=== PATIENT | male | born 1930 | race Caucasian/White ===

== ENCOUNTER 2017-10-14 19:11 | Inpatient (IN) | payer MEDICARE ==
[2017-10-14] MEDS ORDERED: ACETAMINOPHEN 325 MG TABLET PO ONE (19:25)
[2017-10-14] MEDS ORDERED: OXYCODONE-ACETAMINOPHEN 5-325 MG TABLET PO ONE (19:37)
[2017-10-14] MEDS ORDERED: ONDANSETRON 4 MG TAB.RAPDIS PO ONE (19:37)
--- NOTE | 2017-10-14 19:39 | ER Document Report ---
ED Hip Pain/Injury - General Chief Complaint: Hip Pain Stated Complaint: FALL/HIP PAIN Time Seen by Provider: 10/14/17 19:30 Notes: Patient is an 86-year-old male that comes emergency department by ambulance from home for mechanical fall. He states that he slipped on a rug, fell and landed on his right hip area, he also did hit his head on the ground. He denies syncope, headache, vomiting, chest pain, abdominal pain, dizziness, shortness of breath. He is not on a blood thinner. He states that he could not get up so he called the ambulance. He lives at home with his family. Past medical history includes CHF, chronic lymphedema, previous lymphoma status post treatment, COPD not on home oxygen. TRAVEL OUTSIDE OF THE [place] IN LAST 30 DAYS: No - Related Data Allergies/Adverse Reactions: No Known Allergies Allergy (Unverified 10/14/17 19:52) Past Medical History - General Information source: Patient - Social History Smoking Status: Never Smoker Frequency of alcohol use: None Drug Abuse: None Lives with: Family Family History: Reviewed & Not Pertinent - Past Medical History Cardiac Medical History: Reports: Hx Congestive Heart Failure, Hx Hypertension Pulmonary Medical History: Reports: Hx COPD Malignancy Medical History: Reports Hx Lymphoma - Immunizations Hx Diphtheria, Pertussis, Tetanus Vaccination: Yes Review of Systems - Review of Systems Constitutional: No symptoms reported EENT: No symptoms reported Cardiovascular: No symptoms reported Respiratory: No symptoms reported Gastrointestinal: No symptoms reported Genitourinary: No symptoms reported Male Genitourinary: No symptoms reported Musculoskeletal: See HPI Skin: No symptoms reported Hematologic/Lymphatic: No symptoms reported Neurological/Psychological: See HPI Physical Exam - Vital signs Vitals: Resp Pulse Ox 20 93 10/14/17 23:37 10/14/17 23:37 - Notes Notes: GENERAL: Alert, interacts well. No acute distress. HEAD: Normocephalic, atraumatic. EYES: Pupils equal, round, and reactive to light. Extraocular movements intact. ENT: Oral mucosa dry, tongue midline. Normal oropharyngeal exam NECK: Full range of motion. Supple. Trachea midline. LUNGS: Clear to auscultation bilaterally, no wheezes, rales, or rhonchi. No respiratory distress. HEART: Regular rate and rhythm. No murmur ABDOMEN: Soft, non-tender. Non-distended. Bowel sounds present in all 4 quadrants. No signs of trauma. EXTREMITIES: Right leg and lateral rotation, pain over the proximal femur and hip joint. Sensation and capillary refill intact. Bilateral lymphedema with erythema and multiple healing wounds. No purulence, no overt induration or fluctuance, no severe tenderness. BACK: no cervical, thoracic, lumbar midline tenderness. No saddle anesthesia, normal distal neurovascular exam. No signs of trauma. NEUROLOGICAL: Alert and oriented x3. Normal speech. [cranial nerves II through XII grossly intact]. PSYCH: Normal affect, normal mood. SKIN: Warm, dry, normal turgor. No rashes or lesions noted. Course - Re-evaluation Re-evalutation: Presentation concerning for right hip fracture. Patient given pain medication, CAT scan of the head was performed as well because of reported head injury and advanced age although there are no signs of trauma over the head and he does not complain of headache. Patient is alert and oriented. No signs of trauma over the chest, abdomen, back, no complaints of these areas either. X-ray showing fractured right femoral neck. Preoperative tests performed without any acute abnormality. Vital signs unremarkable except for borderline hypoxia when patient starts going to sleep. Discussed admission with patient and daughter, they are very agreeable with this. Called and spoke with Dr. Miner, Orthopedics data collection associate. Will admit to hospitalist because of advanced age and comorbidities. Called and spoke with Dr. Villarreal, internal medicine, patient will be admitted to telemetry full admission. - Vital Signs Vital signs: Temp Pulse Resp BP Pulse Ox 76 18 147/72 H 94 10/15/17 01:35 10/15/17 02:01 10/15/17 02:01 10/15/17 02:01 - Laboratory Result Diagrams: 10/14/17 21:00 10/14/17 21:00 Laboratory results interpreted by me: 10/14/17 10/14/17 10/14/17 21:00 21:00 22:27 WBC 11.4 H RDW 14.3 H Seg Neutrophils % 84.5 H Lymphocytes % 9.7 L Absolute Neutrophils 9.6 H Carbon Dioxide 31 H BUN 25 H Est GFR (Non-Af Amer) 55 L Glucose 111 H Urine Protein 100 H Urine Blood MODERATE H Urine Urobilinogen 2.0 H Discharge - Discharge Clinical Impression: Fall Qualifiers: Encounter type: initial encounter Qualified Code(s): W19.XXXA - Unspecified fall, initial encounter Fracture of head of right femur Qualifiers: Encounter type: initial encounter Fracture type: closed Qualified Code(s): S72.051A - Unspecified fracture of head of right femur, initial encounter for closed fracture Head injury Qualifiers: Encounter type: initial encounter Qualified Code(s): S09.90XA - Unspecified injury of head, initial encounter Condition: Stable Disposition: ADMITTED INPATIENT Admitting Provider: Hospitalist Unit Admitted: Telemetry
[2017-10-14] MEDS ORDERED: FENTANYL CITRATE INJ/PF 100 MCG/2 ML AMPUL IV ONE (19:56)
[2017-10-14] MEDS ORDERED: ONDANSETRON HCL INJ/PF 4 MG/2 ML SDV IV ONE (19:56)
[2017-10-14 21:16] LABS: ABSOLUTE BASOPHILS # (AUTO) 0.1 10^3/uL (0.0-0.2); ABSOLUTE EOSINOPHILS # (AUTO) 0.1 10^3/uL (0.0-0.6); ABSOLUTE LYMPHOCYTES (AUTO) 1.1 10^3/uL (0.5-4.7); ABSOLUTE MONOCYTES (AUTO) 0.5 10^3/uL (0.1-1.4); ABSOLUTE NEUT (AUTO) 9.6 10^3/uL (1.7-8.2); BASOPHILS % (AUTO) 0.5 % (0-2); HEMATOCRIT 45.1 % (37.9-51.0); HEMOGLOBIN 14.9 g/dL (13.5-17.0); LYMPHOCYTES % (AUTO) 9.7 % (13-45); MEAN CORPUSCULAR HEMOGLOBIN 28.8 pg (27.0-33.4); MEAN CORPUSCULAR HGB CONC 33.1 g/dL (32.0-36.0); MEAN CORPUSCULAR VOLUME 87 fl (80-97); MONOCYTES % (AUTO) 4.3 % (3-13); PLATELET COUNT 206 10^3/uL (150-450); RED BLOOD COUNT 5.18 10^6/uL (4.35-5.55); RED CELL DISTRIBUTION WIDTH 14.3 % (11.5-14.0); SEGMENTED NEUTROPHILS % (AUTO) 84.5 % (42-78); TOTAL CELLS COUNTED % (AUTO) 100 %; WHITE BLOOD COUNT 11.4 10^3/uL (4.0-10.5)
[2017-10-14 21:19] LABS: INTERNATIONAL RATION (INR) 0.92; PROTHROMBIN TIME 12.8 SEC (11.4-15.4)
--- NOTE | 2017-10-14 21:19 | RADIOLOGY REPORT (SQ) ---
EXAM DESCRIPTION: HIP RIGHT AP/LATERAL COMPLETED DATE/TIME: 10/14/2017 8:33 pm REASON FOR STUDY: 3 louise s/p fall tender COMPARISON: None. NUMBER OF VIEWS: Two views. TECHNIQUE: AP pelvis and additional frog-leg view of the right hip. LIMITATIONS: None. FINDINGS: MINERALIZATION: Normal. RIGHT HIP: Subcapital fracture. LEFT HIP: No fracture or dislocation. No worrisome bone lesions. PUBIS AND ISCHIUM: No fracture. PELVIS: No fracture. SACRUM: No fracture or dislocation. No worrisome bone lesions. LOWER LUMBAR SPINE: No fracture or dislocation. No worrisome bone lesions. No significant disc disea se. SOFT TISSUES: No findings. OTHER: No other significant finding. IMPRESSION: Subcapital fracture of the right femoral neck. TECHNICAL DOCUMENTATION: JOB ID: [id number] [employer]- All Rights Reserved Reading location - IP/workstation name: [email or web address]
[2017-10-14 21:20] LABS: PARTIAL THROMBOPLASTIN TIME 35.7 SEC (23.5-35.8)
--- NOTE | 2017-10-14 21:20 | RADIOLOGY REPORT (SQ) ---
EXAM DESCRIPTION: CHEST SINGLE VIEW COMPLETED DATE/TIME: 10/14/2017 8:33 pm REASON FOR STUDY: FALL +DEFORMITY COMPARISON: None. EXAM PARAMETERS: NUMBER OF VIEWS: One view. TECHNIQUE: Single frontal radiographic view of the chest acquired. RADIATION DOSE: NA LIMITATIONS: None. FINDINGS: LUNGS AND PLEURA: Mild chronic interstitial changes are suggested. No acute infiltrate or effusion is seen. MEDIASTINUM AND HILAR STRUCTURES: No masses. Contour normal. HEART AND VASCULAR STRUCTURES: Heart normal in size. Normal vasculature. BONES: No acute findings. HARDWARE: Injection port on the left. OTHER: No other significant finding. IMPRESSION: Chronic lung changes. TECHNICAL DOCUMENTATION: JOB ID: [id number] [employer]- All Rights Reserved Reading location - IP/workstation name: [email or web address]
--- NOTE | 2017-10-14 21:23 | RADIOLOGY REPORT (SQ) ---
EXAM DESCRIPTION: CT HEAD WITHOUT COMPLETED DATE/TIME: 10/14/2017 8:40 pm REASON FOR STUDY: fall, head injury COMPARISON: None. TECHNIQUE: Axial images acquired through the brain without intravenous contrast. Images reviewed wi th bone, brain and subdural windows. Additional sagittal and coronal reconstructions were generated. Images stored on PACS. All CT scanners at this facility use dose modulation, iterative reconstruction, and/or weight based d osing when appropriate to reduce radiation dose to as low as reasonably achievable (ALARA). [facility]: Dose Right [facility]: CareDose [facility]: Dose Right [facility]: Teradose 4D [facility]: Smart Technologies RADIATION DOSE: CT Rad equipment meets quality standard of care and radiation dose reduction techniq ues were employed. CTDIvol: 55.2 mGy. DLP: 1029 mGy-cm. mGy. LIMITATIONS: None. FINDINGS: VENTRICLES: Prominent ventricles secondary to involutional atrophy. CEREBRUM: Cortical atrophy. There is no hemorrhage, contusion, or subdural hematoma. There is no mi dline shift or mass effect. There is no acute infarction. Normal nicholas/white matter differentiation. No areas of low density in the white matter. CEREBELLUM: No masses. No hemorrhage. No alteration of density. No evidence for acute infarction. EXTRAAXIAL SPACES: No fluid collections. No masses. ORBITS AND GLOBE: No intra- or extraconal masses. Normal contour of globe without masses. CALVARIUM: No fracture. PARANASAL SINUSES: Right maxillary sinus is opacified. SOFT TISSUES: No mass or hematoma. OTHER: No other significant finding. IMPRESSION: Involutional changes of aging with no acute intracranial imaging findings. Right maxill lindsey sinus disease. EVIDENCE OF ACUTE STROKE: NO. COMMENT: Quality ID # [id number]: Final reports with documentation of one or more dose reduction techniques (e.g., Automated exposure control, adjustment of the mA and/or kV according to patient size, use of iterative reconstruction technique) TECHNICAL DOCUMENTATION: JOB ID: [id number] [employer]- All Rights Reserved Reading location - IP/workstation name: [email or web address]
[2017-10-14 21:33] LABS: ALANINE AMINOTRANSFERASE 25 U/L (21-72); ALBUMIN 3.9 g/dL (3.5-5.0); ALKALINE PHOSPHATASE 58 U/L (38-126); ANION GAP 10 (5-19); ASPARTATE AMINO TRANSFERASE 27 U/L (17-59); BILIRUBIN,DIRECT 0.4 mg/dL (0.0-0.4); BILIRUBIN,TOTAL 0.8 mg/dL (0.2-1.3); BLOOD UREA NITROGEN 25 mg/dL (7-20); CALCIUM 8.6 mg/dL (8.4-10.2); CARBON DIOXIDE 31 mmol/L (22-30); CHLORIDE 102 mmol/L (98-107); GLUCOSE 111 mg/dL (75-110); POTASSIUM 3.8 mmol/L (3.6-5.0); SODIUM 143.3 mmol/L (137-145)
[2017-10-14] MEDS ORDERED: MORPHINE SULFATE 10 MG/ML INJ IV ONE (21:48)
[2017-10-14] MEDS ORDERED: LIDOCAINE 2% URO-JET 5 ML KIT MM ONE (22:06)
[2017-10-15] LABS: APPEARANCE,URINE CLEAR; BILIRUBIN,URINE NEGATIVE (NEGATIVE); COLOR,URINE YELLOW; GLUCOSE, URINE NEGATIVE (NEGATIVE); KETONES,URINE NEGATIVE (NEGATIVE); LEUKOCYTE ESTERASE,URINE NEGATIVE (NEGATIVE); NITRITE,URINE NEGATIVE (NEGATIVE); PROTEIN,URINE 100 mg/dL (NEGATIVE); URINE SPECIFIC GRAVITY 1.018
[2017-10-15] MEDS ORDERED: FENTANYL CITRATE INJ/PF 100 MCG/2 ML AMPUL IV PRN ×2 (00:24→05:43)
[2017-10-15] MEDS ORDERED: FENTANYL CITRATE INJ/PF 100 MCG/2 ML AMPUL IV ONE (00:47)
[2017-10-15] MEDS ORDERED: ACETAMINOPHEN 325 MG TABLET PO PRN (00:59)
[2017-10-15] MEDS ORDERED: IPRATROPIUM/ALBUTEROL 0.5-2.5 MG/3 ML AMPUL NEB PRN ×2 (00:59→08:57)
[2017-10-15] MEDS ORDERED: MAGNESIUM HYDROXIDE SUSP 30 ML UDCUP PO PRN (00:59)
[2017-10-15] MEDS: IPRATROPIUM/ALBUTEROL 0.5-2.5 MG/3 ML AMPUL NEB SCH ×4 (01:35→23:47)
[2017-10-15 01:44] LABS: CREATINE KINASE MB 1.19 ng/mL (<4.55)
[2017-10-15 01:46] LABS: TROPONIN I < 0.012 ng/mL
[2017-10-15 04:03] LABS: CREATINE KINASE MB 1.31 ng/mL (<4.55); TROPONIN I < 0.012 ng/mL
[2017-10-15] MEDS: HEPARIN SOD (PORCINE) 5,000 UNIT/ML 1 ML SYRINGE SUBCUT SCH ×2 (06:56→14:20)
--- NOTE | 2017-10-15 06:56 | PDOC H&P ---
History of Present Illness Admission Date/PCP: 10/15/17 00:38 History of Present Illness: NAE JOYA is a 86 year old male with a past medical history of 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 Patient presents 30 minutes following a trip over a rug resulting in fall to the floor hitting his head and right hip resulting in intractable pain to the right hip, no loss of consciousness, or evidence of head trauma. In the emergency room is found to have a right-sided hip fracture. He is referred to the hospitalist for admission. He denies recent medication changes , chest pain palpitations nausea vomiting. Past Medical History Cardiac Medical History: Reports: Congestive Heart Failure, Hypertension Pulmonary Medical History: Reports: Chronic Obstructive Pulmonary Disease (COPD) Malignancy Medical History: Reports: Lymphoma Psychiatric Medical History: Reports: None Hematology: Reports: None Social History Information Source: Patient Lives with: Family Smoking Status: Former Smoker Last Time Smoked: 1979 Hx Recreational Drug Use: No Hx Prescription Drug Abuse: No - Advance Directive Resuscitation Status: Full Code Family History Family History: COPD Parental Family History Reviewed: Yes Children Family History Reviewed: Yes Sibling(s) Family History Reviewed.: Yes Medication/Allergy Allergies/Adverse Reactions: No Known Allergies Allergy (Unverified 10/14/17 19:52) Review of Systems Constitutional: PRESENT: as per HPI, fatigue, weakness. ABSENT: fever(s), headache(s), night sweats Eyes: ABSENT: visual disturbances Ears: ABSENT: hearing changes Cardiovascular: PRESENT: as per HPI, dyspnea on exertion, edema, orthropnea. ABSENT: chest pain, palpitations Respiratory: PRESENT: as per HPI, dyspnea. ABSENT: hemoptysis, sputum Gastrointestinal: ABSENT: abdominal pain, constipation, diarrhea, hematemesis, hematochezia, nausea, vomiting Genitourinary: ABSENT: dysuria, hematuria Musculoskeletal: PRESENT: as per HPI, muscle weakness. ABSENT: joint swelling Integumentary: ABSENT: rash, wounds Neurological: ABSENT: abnormal gait, abnormal speech, confusion, dizziness, focal weakness, syncope Psychiatric: ABSENT: anxiety, depression, homidical ideation, suicidal ideation Endocrine: ABSENT: cold intolerance, heat intolerance, polydipsia, polyuria Hematologic/Lymphatic: ABSENT: easy bleeding, easy bruising Physical Exam Vital Signs: Temp Pulse Resp BP Pulse Ox 98.3 F 90 18 154/70 H 93 10/15/17 02:29 10/15/17 02:29 10/15/17 02:29 10/15/17 02:29 10/15/17 02:29 Intake & Output 10/13/17 10/14/17 10/15/17 11:59 11:59 11:59 Intake Total 320 Output Total 360 Balance -40 Weight 93.9 kg General appearance: PRESENT: cooperative, mild distress. ABSENT: no acute distress, hard of hearing Head exam: PRESENT: atraumatic, normocephalic Eye exam: PRESENT: conjunctiva pink, EOMI, PERRLA. ABSENT: scleral icterus Ear exam: PRESENT: normal external ear exam Mouth exam: PRESENT: moist, tongue midline Neck exam: ABSENT: carotid bruit, JVD, lymphadenopathy, thyromegaly Respiratory exam: PRESENT: accessory muscle use, crackles, decreased breath sounds, prolonged expiratory phas, rales, tachypnea Cardiovascular exam: PRESENT: RRR. ABSENT: diastolic murmur, rubs, systolic murmur Pulses: PRESENT: normal dorsalis pedis pul Vascular exam: PRESENT: normal capillary refill GI/Abdominal exam: PRESENT: normal bowel sounds, soft. ABSENT: distended, guarding, mass, organolmegaly, rebound, tenderness Rectal exam: PRESENT: deferred Extremities exam: PRESENT: joint swelling, pedal edema, tenderness, +2 edema. ABSENT: calf tenderness, full ROM Neurological exam: PRESENT: alert, awake, oriented to person, oriented to place , oriented to time, oriented to situation, CN II-XII grossly intact. ABSENT: motor sensory deficit Psychiatric exam: PRESENT: appropriate affect, normal mood. ABSENT: homicidal ideation, suicidal ideation Skin exam: PRESENT: dry, intact. ABSENT: erythema, jaundice Results Laboratory Results: 10/15/17 10/15/17 03:15 03:15 Creatine Kinase 122 CK-MB (CK-2) 1.31 Troponin I < 0.012 Impressions: Chest X-Ray 10/14/17 00:00 IMPRESSION: Chronic lung changes. Hip/Pelvis X-Ray 10/14/17 00:00 IMPRESSION: Subcapital fracture of the right femoral neck. Head CT 10/14/17 19:37 IMPRESSION: Involutional changes of aging with no acute intracranial imaging findings. Right maxillary sinus disease. EVIDENCE OF ACUTE STROKE: NO. Assessment & Plan - Diagnosis (1) Fracture of head of right femur Qualifiers: Encounter type: initial encounter Fracture type: closed Qualified Code(s) : S72.051A - Unspecified fracture of head of right femur, initial encounter for closed fracture Is this a current diagnosis for this admission?: Yes Plan: Mechanical fall complicated by severe baseline debility, lymphoma, congestive heart failure, COPD. Patient at high risk for intraoperative cardiopulmonary complication and general anesthesia. Cardiology consulted for preop evaluation. (2) Debility Is this a current diagnosis for this admission?: Yes Plan: Secondary to chronic illness. Supportive care, discharge planning (3) Congestive heart failure Is this a current diagnosis for this admission?: Yes Plan: Unclear stage, cardiology consulted (4) COPD (chronic obstructive pulmonary disease) Is this a current diagnosis for this admission?: Yes Plan: Albuterol and Atrovent, flutter valve and incentive spirometry (5) Fall Qualifiers: Encounter type: initial encounter Qualified Code(s): W19.XXXA - Unspecified fall, initial encounter Is this a current diagnosis for this admission?: Yes Plan: Mechanical fall resulting in #1. - Time Time Spent: 50 to 70 Minutes - Inpatient Certification Medical Necessity: Need Close Monitoring Due to Risk of Patient Decompensation
--- NOTE | 2017-10-15 07:24 | EKG REPORT ---
SEVERITY:- ABNORMAL ECG - SINUS RHYTHM ATRIAL PREMATURE COMPLEX NONSPECIFIC INTRAVENTRICULAR CONDUCTION DELAY FIRST DEGREE AVB CONSIDER OLD INFERIOR VT, NO OLD EKG FOR COMPARISON. : Confirmed by: Sukhwinder Dinh MD 15-Oct-2017 07:23:34
[2017-10-15] MEDS ORDERED: IPRATROPIUM/ALBUTEROL 0.5-2.5 MG/3 ML AMPUL NEB ONE (09:30)
[2017-10-15] MEDS ORDERED: NORMAL SALINE 1000 ML 1,000 ML IV PRN (11:07)
[2017-10-15] MEDS ORDERED: DEXTROSE 40% GEL 15 GM TUBE PO PRN ×2 (11:13)
[2017-10-15] MEDS ORDERED: GLUCAGON,HUMAN RECOMB 1 MG INJ IM PRN (11:13)
[2017-10-15] MEDS ORDERED: INSULIN REG, HUMAN 100 UNIT/ML 3 ML VIAL (PYX) SUBCUT PRN (11:13)
[2017-10-15] MEDS ORDERED: DEXTROSE 50%-WATER 25 GM/50 ML DISP.SYRIN IV PRN ×2 (11:13)
[2017-10-15 11:25] LABS: CREATINE KINASE MB 2.92 ng/mL (<4.55); TROPONIN I 0.018 ng/mL
--- NOTE | 2017-10-15 11:54 | Progress Note ---
Provider Note Provider Note: PRELIMINARY NOTE by Dr. Jennifer Moreno. Date: 10/15/2017. Patient interviewed and examined. History obtained from patient and patient's daughter. Formal consult to follow. THE PATIENT WILL BE AND ACCEPTABLE CARDIAC RISK FOR ORTHOPEDIC SURGICAL PROCEDURE. Next RECOMMEND perioperative monitoring on telemetry, postop EKG and serial cardiac enzymes. We will follow with you. Discussed with the hospitalist. Will discuss with anesthesia.
[2017-10-15] MEDS ORDERED: MINERAL OIL/PETROLATUM,WHITE CREAM 114 GM TP ONE (12:00)
[2017-10-15] MEDS: MORPHINE SULFATE 10 MG/ML INJ IV PRN ×4 (12:11→23:14)
[2017-10-15] MEDS: DOCUSATE SODIUM 100 MG CAPSULE PO SCH ×2 (12:12→18:59)
[2017-10-15] MEDS ORDERED: MORPHINE SULFATE 10 MG/ML INJ ONE (14:04)
[2017-10-15] MEDS ORDERED: MORPHINE SULFATE 10 MG/ML INJ IV ONE (15:00)
[2017-10-15] MEDS: CLINDAMYCIN HCL 150 MG CAPSULE PO SCH ×2 (16:14→21:36)
--- NOTE | 2017-10-15 16:26 | PDOC PROGRESS REPORT ---
Subjective Progress Note for:: 10/15/17 Subjective:: The patient is an 86 year old male with a past medical history of lymphoma ( unknown type/staging; declining further treatment), COPD, CHF, debility, and BLE venous stasis dermatitis (chronic) who was admitted 10/15/17 by the [facility] for a Rt hip fracture secondary to mechanical fall. The patient is seen on morning rounds. He is found resting in bed on room air. He reports that his pain is moderately well controlled with the current regiment and does request that his medication dosing or schedule be increased. He reports that he does experience dyspnea on exertion after ambulating approximately 20 feet but has never been home O2 dependent. They state that the move to [place] from [place] approximately 3 weeks ago and has not established with a local PCP; has been several months (at least) since the patient was seen by his previous medical provider in [place]. He denies headache, dizziness, chest pain, palpitations, dyspnea while at rest, orthopnea, abdominal pain, nausea and vomiting. The patient and daughter have no new questions at this time. Nursing is concerned with appearance of BLE; possible cellulitis. Reason For Visit: HIP FRACTURE, COPD CHF LYMPHOMA Physical Exam Vital Signs: Temp Pulse Resp BP Pulse Ox 100.3 F 91 18 129/49 H 90 L 10/15/17 12:00 10/15/17 12:00 10/15/17 12:00 10/15/17 12:00 10/15/17 12:00 Intake & Output 10/14/17 10/15/17 10/16/17 06:59 06:59 06:59 Intake Total 320 Output Total 360 Balance -40 Weight 93.9 kg General appearance: PRESENT: no acute distress, disheveled, well-developed, well -nourished, other - Overweight, chronically ill-appearing Head exam: PRESENT: atraumatic, normocephalic Eye exam: PRESENT: conjunctiva pink, EOMI, PERRLA. ABSENT: scleral icterus Ear exam: PRESENT: normal external ear exam Mouth exam: PRESENT: dry mucosa, tongue midline Neck exam: ABSENT: carotid bruit, JVD, lymphadenopathy, thyromegaly Respiratory exam: PRESENT: decreased breath sounds - Bibasilar, prolonged expiratory phas, rhonchi - Occasional, symmetrical, unlabored. ABSENT: rales, wheezes Cardiovascular exam: PRESENT: RRR. ABSENT: diastolic murmur, rubs, systolic murmur Pulses: PRESENT: normal dorsalis pedis pul Vascular exam: PRESENT: normal capillary refill GI/Abdominal exam: PRESENT: normal bowel sounds, soft. ABSENT: distended, guarding, mass, organolmegaly, rebound, tenderness Rectal exam: PRESENT: deferred Extremities exam: PRESENT: pedal edema, tenderness - Rt hip. ABSENT: calf tenderness, clubbing Neurological exam: PRESENT: alert, awake, oriented to person, oriented to place , oriented to time, oriented to situation, CN II-XII grossly intact. ABSENT: motor sensory deficit Psychiatric exam: PRESENT: appropriate affect, normal mood. ABSENT: homicidal ideation, suicidal ideation Skin exam: PRESENT: dry, erythema - RLE w/ numerous shallow venous ulerations and drainage of serous fluid., warm, other - Chronic venous stasis changes BLE. ABSENT: cyanosis, rash Results Laboratory Results: 10/15/17 13:32 Blood Type AB POSITIVE Antibody Screen NEGATIVE 10/15/17 10/15/17 10/15/17 03:15 03:15 10:30 Creatine Kinase 122 368 H CK-MB (CK-2) 1.31 Troponin I < 0.012 10/15/17 10:30 Creatine Kinase CK-MB (CK-2) 2.92 Troponin I 0.018 Impressions: Chest X-Ray 10/14/17 00:00 IMPRESSION: Chronic lung changes. Hip/Pelvis X-Ray 10/14/17 00:00 IMPRESSION: Subcapital fracture of the right femoral neck. Head CT 10/14/17 19:37 IMPRESSION: Involutional changes of aging with no acute intracranial imaging findings. Right maxillary sinus disease. EVIDENCE OF ACUTE STROKE: NO. Assessment & Plan - Diagnosis (1) Fracture of head of right femur Qualifiers: Encounter type: initial encounter Fracture type: closed Qualified Code(s) : S72.051A - Unspecified fracture of head of right femur, initial encounter for closed fracture Is this a current diagnosis for this admission?: Yes Plan: Secondary to mechanical fall. Primary plan per orthopedics. Cardiology has been consulted for cardiac clearance. Analgesics and antiemetics as needed. (2) Cellulitis Qualifiers: Site of cellulitis: extremity Site of cellulitis of extremity: lower extremity Laterality: right Qualified Code(s): L03.115 - Cellulitis of right lower limb Is this a current diagnosis for this admission?: Yes Plan: Secondary to chronic venous stasis and venous ulcerations. Bilateral lower extremities are edematous; +2 LLE, +3 right LLE. Circumferential erythema, multiple shallow ulcerations, and sanguinous drainage is noted. The patient is placed on p.o. clindamycin; will benefit with podiatry and wound clinic follow-up as outpatient. (3) COPD (chronic obstructive pulmonary disease) Is this a current diagnosis for this admission?: Yes Plan: Without current exacerbation. Patient denies all medications. As needed nebulizer treatments are available. Supplemental oxygen as needed to maintain saturations greater than 88%. Flutter valve and incentive spirometry to bedside. (4) Congestive heart failure Is this a current diagnosis for this admission?: Yes Plan: Unclear stage. Trending troponins. We will obtain baseline BNP. Echocardiogram is pending. (5) Debility Is this a current diagnosis for this admission?: Yes Plan: Anticipate SNF for short-term rehabilitation upon discharge. Discharge planning is consulted. (6) Fall Qualifiers: Encounter type: initial encounter Qualified Code(s): W19.XXXA - Unspecified fall, initial encounter Is this a current diagnosis for this admission?: Yes Plan: Mechanical fall at home. Fall precautions are in place. Remaining plan as above. - Time Time Spent with patient: 25-34 minutes Medications reviewed and adjusted accordingly: Yes
--- NOTE | 2017-10-15 18:56 | XCELERA REPORT ---
[address] [address] Transthoracic Echocardiogram Report Name: NAE JOYA Age: 86 yrs Gender: Male : 1930 Patient Status: [facility] Study Date: 10/15/2017 02:38 PM Height: 71 in Weight: 207 lb BSA: 2.1 m2 Procedure: A two-dimensional transthoracic echocardiogram with color flow Doppler was performed. The study was technically difficult with many images being suboptimal in quality. Reason For Study: PREOP CARDIAC CLEARANCE History: MURMUR / PREOP CARDIAC CLEARANCE. Ordering Physician: JENNIFER MORENO Performed By: Kristine Rodriguez Interpretation Summary The left ventricle is normal in size. There is normal left ventricular wall thickness. LV EF is > than 60% Left ventricular systolic function is normal. Doppler measurements suggest impaired left ventricular relaxation, which is associated with grade I/IV or mild diastolic dysfunction The left ventricular wall motion is normal. There is no thrombus. There is no ventricular septal defect visualized. The right ventricle is not well visualized secondary to technical limitations Cannot exclude mild RV enlargement , but with normal RV systolic function. The right atrium is normal. The left atrial size is normal. The interatrial septum is intact with no evidence for an atrial septal defect. There is no evidence of mitral valve prolapse. There is no mitral valve stenosis. There is a trace amount of mitral regurgitation There is no aortic valvular vegetation. There is a peak gradient of 23 mm of Hg , and mean gradient of 13 mm of Hg. There is no LVOT obstruction. No hemodynamically significant valvular aortic stenosis. No aortic regurgitation is present. There is no tricuspid stenosis. There is a mild amount of tricuspid regurgitation There is moderate pulmonary hypertension by echo RSVP is equal to is 53 to 58 mm of Hg , with RA mean of 5 to 10. There is no pulmonic valvular stenosis. There is no pulmonic valvular regurgitation. The aortic root is not well visualized. The inferior vena cava appeared normal and decreased > 50% with respiration (RAP 5-10 mmHg) There is no pericardial effusion. MMode/2D Measurements & Calculations RVDd: 4.1 cm LVIDd: 3.6 cm FS: 29.7 % Ao root diam: 3.3 cm IVSd: 0.98 cm LVIDs: 2.6 cm EDV(Teich): 55.8 ml Ao root area: 8.6 cm2 LVPWd: 1.0 cm ESV(Teich): 23.6 ml LA dimension: 3.2 cm EF(Teich): 57.8 % LVOT diam: 2.1 cm LVOT area: 3.6 cm2 Doppler Measurements & Calculations MV E max apurva: MV P1/2t max apurva: Ao V2 max: LV V1 max P.8 cm/sec 55.9 cm/sec 237.5 cm/sec 4.5 mmHg MV A max apurva: MV P1/2t: 45.0 msec Ao max PG: LV V1 mean P.9 cm/sec MVA(P1/2t): 4.9 cm2 22.6 mmHg 2.4 mmHg MV E/A: 0.55 MV dec slope: Ao V2 mean: LV V1 max: 165.1 cm/sec 106.4 cm/sec 364.2 cm/sec2 Ao mean PG: LV V1 mean: MV dec time: 0.14 sec12.7 mmHg 70.3 cm/sec Ao V2 VTI: 40.9 cm LV V1 VTI: 18.6 cm KVNG(I,D): 1.6 cm2 KVNG(V,D): 1.6 cm2 SV(LVOT): 67.0 ml PA V2 max: TR max apurva: MV P1/2t-pr_phl: 67.1 cm/sec 344.8 cm/sec 45.0 msec PA max P.8 mmHg TR max P.5 mmHg Left Ventricle The left ventricle is normal in size. There is normal left ventricular wall thickness. LV EF is > than 60%. Left ventricular systolic function is normal. Doppler measurements suggest impaired left ventricular relaxation, which is associated with grade I/IV or mild diastolic dysfunction. The left ventricular wall motion is normal. There is no thrombus. There is no ventricular septal defect visualized. Right Ventricle The right ventricle is not well visualized secondary to technical limitations. Cannot exclude mild RV enlargement , but with normal RV systolic function. Atria The right atrium is normal. The left atrial size is normal. The interatrial septum is intact with no evidence for an atrial septal defect. Mitral Valve There is no evidence of mitral valve prolapse. There is no vegetation seen on the mitral valve. There is no mitral valve stenosis. There is a trace amount of mitral regurgitation. Aortic Valve There is no aortic valvular vegetation. There is mild aortic stenosis. There is a peak gradient of 23 mm of Hg , and mean gradient of 13 mm of Hg. There is no LVOT obstruction. No hemodynamically significant valvular aortic stenosis. No aortic regurgitation is present. Tricuspid Valve There is no tricuspid stenosis. There is a mild amount of tricuspid regurgitation. There is moderate pulmonary hypertension by echo. RSVP is equal to is 53 to 58 mm of Hg , with RA mean of 5 to 10. Pulmonic Valve There is no pulmonic valvular stenosis. There is no pulmonic valvular regurgitation. Great Vessels The aortic root is not well visualized. The inferior vena cava appeared normal and decreased > 50% with respiration (RAP 5-10 mmHg). Effusions There is no pericardial effusion. : JENNIFER MORENO > Jennifer Moreno
[2017-10-15] MEDS ORDERED: RINGERS SOLUTION,LACTATED 1,000 ML IV PRN (23:59)
[2017-10-16] MEDS: CLINDAMYCIN HCL 150 MG CAPSULE PO SCH ×3 (05:14→22:36)
[2017-10-16 06:29] LABS: ABSOLUTE EOSINOPHILS # (AUTO) 0.4 10^3/uL (0.0-0.6); ABSOLUTE LYMPHOCYTES (AUTO) 0.7 10^3/uL (0.5-4.7); ABSOLUTE MONOCYTES (AUTO) 0.8 10^3/uL (0.1-1.4); ABSOLUTE NEUT (AUTO) 8.4 10^3/uL (1.7-8.2); BASOPHILS % (AUTO) 0.3 % (0-2); EOSINOPHILS % (AUTO) 3.8 % (0-6); HEMATOCRIT 40.4 % (37.9-51.0); HEMOGLOBIN 13.6 g/dL (13.5-17.0); LYMPHOCYTES % (AUTO) 6.9 % (13-45); MEAN CORPUSCULAR HEMOGLOBIN 29.5 pg (27.0-33.4); MEAN CORPUSCULAR HGB CONC 33.8 g/dL (32.0-36.0); MEAN CORPUSCULAR VOLUME 87 fl (80-97); MONOCYTES % (AUTO) 7.3 % (3-13); PLATELET COUNT 139 10^3/uL (150-450); RED BLOOD COUNT 4.62 10^6/uL (4.35-5.55); RED CELL DISTRIBUTION WIDTH 14.3 % (11.5-14.0); SEGMENTED NEUTROPHILS % (AUTO) 81.7 % (42-78); TOTAL CELLS COUNTED % (AUTO) 100 %; WHITE BLOOD COUNT 10.3 10^3/uL (4.0-10.5)
[2017-10-16 07:37] LABS: ANION GAP 10 (5-19); BLOOD UREA NITROGEN 26 mg/dL (7-20); CALCIUM 8.4 mg/dL (8.4-10.2); CARBON DIOXIDE 30 mmol/L (22-30); CHLORIDE 100 mmol/L (98-107); CREATINE KINASE 923 U/L (55-170); GLUCOSE 121 mg/dL (75-110)
[2017-10-16] MEDS: IPRATROPIUM/ALBUTEROL 0.5-2.5 MG/3 ML AMPUL NEB SCH ×2 (08:10→16:14)
[2017-10-16] MEDS: MINERAL OIL/PETROLATUM,WHITE CREAM 114 GM TP SCH (10:14)
[2017-10-16] MEDS: DOCUSATE SODIUM 100 MG CAPSULE PO SCH ×2 (10:14→17:46)
--- NOTE | 2017-10-16 12:29 | PDOC PROGRESS REPORT ---
Subjective Progress Note for:: 10/16/17 Subjective:: The patient is an 86 year old male with a past medical history of lymphoma ( unknown type/staging; declining further treatment), COPD, CHF, debility, and BLE venous stasis dermatitis (chronic) who was admitted 10/15/17 for a Rt hip fracture secondary to mechanical fall. The patient is seen on morning rounds, he is found resting in bed comfortably on room air. Initially, the patient is sleeping, but does wake easily when I say his name. Few moments later his 2 daughters arrived and they are also given an update. The patient states that his pain is much better controlled today and that he slept well. He denies fever, chills, headache, dizziness, chest pain, palpitations, dyspnea, orthopnea, cough, abdominal pain, nausea, vomiting, and diarrhea. All questions and concerns were addressed; anticipate patient will go to the OR today. Reason For Visit: HIP FRACTURE, COPD CHF LYMPHOMA Physical Exam Vital Signs: Temp Pulse Resp BP Pulse Ox 98.8 F 80 18 127/58 H 96 10/16/17 08:00 10/16/17 08:10 10/16/17 08:10 10/16/17 08:00 10/16/17 08:10 Intake & Output 10/15/17 10/16/17 10/17/17 06:59 06:59 06:59 Intake Total 320 990 Output Total 360 1050 Balance -40 -60 Weight 93.9 kg 94.2 kg General appearance: PRESENT: no acute distress, well-developed, well-nourished, other - overweight Head exam: PRESENT: atraumatic, normocephalic Eye exam: PRESENT: conjunctiva pink, EOMI, PERRLA. ABSENT: scleral icterus Ear exam: PRESENT: normal external ear exam Mouth exam: PRESENT: moist, tongue midline Neck exam: ABSENT: carotid bruit, JVD, lymphadenopathy, thyromegaly Respiratory exam: PRESENT: decreased breath sounds - bibasilar, prolonged expiratory phas, rhonchi - slight; improves following cough, symmetrical, unlabored. ABSENT: rales, wheezes Cardiovascular exam: PRESENT: RRR. ABSENT: diastolic murmur, rubs, systolic murmur Pulses: PRESENT: +1 pedal pulses bilateral Vascular exam: PRESENT: normal capillary refill GI/Abdominal exam: PRESENT: normal bowel sounds, soft. ABSENT: distended, guarding, mass, organolmegaly, rebound, tenderness Rectal exam: PRESENT: deferred Gentrourinary exam: PRESENT: indwelling catheter Extremities exam: PRESENT: pedal edema, tenderness - RLE. ABSENT: calf tenderness, clubbing Neurological exam: PRESENT: alert, awake, oriented to person, oriented to place , oriented to time, oriented to situation, CN II-XII grossly intact. ABSENT: motor sensory deficit Psychiatric exam: PRESENT: appropriate affect, normal mood. ABSENT: homicidal ideation, suicidal ideation Skin exam: PRESENT: dry, erythema - RLE; improved, warm, other - Chronic venous stasis changes w/ shallow ulcerations and slight serous fluid drainage. Improved appearance from yesterday.. ABSENT: cyanosis, rash Results Laboratory Results: 10/16/17 06:12 10/16/17 06:12 10/15/17 10/16/17 10/16/17 13:32 06:12 06:12 WBC 10.3 RBC 4.62 Hgb 13.6 Hct 40.4 MCV 87 MCH 29.5 MCHC 33.8 RDW 14.3 H Plt Count 139 L Seg Neutrophils % 81.7 H Lymphocytes % 6.9 L Monocytes % 7.3 Eosinophils % 3.8 Basophils % 0.3 Absolute Neutrophils 8.4 H Absolute Lymphocytes 0.7 Absolute Monocytes 0.8 Absolute Eosinophils 0.4 Absolute Basophils 0.0 Sodium 140.0 Potassium 5.0 Chloride 100 Carbon Dioxide 30 Anion Gap 10 BUN 26 H Creatinine 1.32 H Est GFR ( Amer) > 60 Est GFR (Non-Af Amer) 51 L Glucose 121 H Calcium 8.4 Blood Type AB POSITIVE Antibody Screen NEGATIVE 10/15/17 10/15/17 10/15/17 03:15 03:15 10:30 Creatine Kinase 122 368 H CK-MB (CK-2) 1.31 Troponin I < 0.012 NT-Pro-B Natriuret Pep 10/15/17 10/15/17 10/15/17 10:30 16:55 16:55 Creatine Kinase CK-MB (CK-2) 2.92 Troponin I 0.018 0.036 NT-Pro-B Natriuret Pep 2240 H 10/16/17 10/16/17 06:12 06:12 Creatine Kinase 923 H CK-MB (CK-2) Troponin I 0.064 NT-Pro-B Natriuret Pep Impressions: Chest X-Ray 10/14/17 00:00 IMPRESSION: Chronic lung changes. Hip/Pelvis X-Ray 10/14/17 00:00 IMPRESSION: Subcapital fracture of the right femoral neck. Head CT 10/14/17 19:37 IMPRESSION: Involutional changes of aging with no acute intracranial imaging findings. Right maxillary sinus disease. EVIDENCE OF ACUTE STROKE: NO. Assessment & Plan - Diagnosis (1) Fracture of head of right femur Qualifiers: Encounter type: initial encounter Fracture type: closed Qualified Code(s) : S72.051A - Unspecified fracture of head of right femur, initial encounter for closed fracture Is this a current diagnosis for this admission?: Yes Plan: Secondary to mechanical fall. Primary plan per orthopedics. Cardiology has been consulted and has provided cardiac clearance. Will need serial troponins and repeat EKG following procedure. Analgesics and antiemetics as needed. (2) Cellulitis Qualifiers: Site of cellulitis: extremity Site of cellulitis of extremity: lower extremity Laterality: right Qualified Code(s): L03.115 - Cellulitis of right lower limb Is this a current diagnosis for this admission?: Yes Plan: Secondary to chronic venous stasis and venous ulcerations; improved appearance today. Bilateral lower extremities are edematous; +2 LLE, +3 right LLE. Circumferential erythema, multiple shallow ulcerations, and sanguinous drainage is noted. Continue p.o. clindamycin; will benefit with podiatry and possibly wound clinic follow-up as outpatient. (3) COPD (chronic obstructive pulmonary disease) Is this a current diagnosis for this admission?: Yes Plan: Without current exacerbation. Patient denies all medications. As needed nebulizer treatments are available. Supplemental oxygen as needed to maintain saturations greater than 88%. Flutter valve and incentive spirometry to bedside. (4) Congestive heart failure Qualifiers: Heart failure type: diastolic Heart failure chronicity: chronic Qualified Code(s): I50.32 - Chronic diastolic (congestive) heart failure Is this a current diagnosis for this admission?: Yes Plan: Echocardiogram reveals preserved ejection fraction, mild diastolic dysfunction, trace mitral regurgitation, mild tricuspid regurgitation, and moderate pulmonary hypertension. ProBNP elevated to 2240; no previous lab values to compare. The patient does not appear to be in acute exacerbation on clinical exam. Troponins are trending upward; currently 0.064. However, patient is noted to have rhabdomyolysis with an increasing CK, creatinine, and BUN. We will continue to trend troponins. The patient is receiving gentle IV fluids for rhabdomyolysis; will observe closely for fluid volume overload. Daily weights and Strict I&Os. (5) Debility Is this a current diagnosis for this admission?: Yes Plan: Anticipate SNF for short-term rehabilitation upon discharge. Discharge planning is consulted. (6) Fall Qualifiers: Encounter type: initial encounter Qualified Code(s): W19.XXXA - Unspecified fall, initial encounter Is this a current diagnosis for this admission?: Yes Plan: Mechanical fall at home. Fall precautions are in place. Remaining plan as above. (7) Kidney insufficiency Is this a current diagnosis for this admission?: Yes Plan: Unclear baseline; creatinine 1.25 on admission. Slightly up to 1.32 this morning. Creatine kinase is also increased; 116--> 122--> 368--> 923 We will avoid nephrotoxic medications as able. Le catheter has been placed for strict I&Os. Have initiated gentle IV fluids. We will monitor with daily chemistries. (8) Rhabdomyolysis Qualifiers: Rhabdomyolysis type: traumatic Is this a current diagnosis for this admission?: Yes Plan: Secondary to fall resulting in right hip fracture. Creatine kinase increasing; 116--> 122--> 368--> 923 Le catheter has been placed for strict I&Os. Have initiated gentle IV fluids. Will continue to trend. Early mobility/position changes once approved by orthopedics. - Time Time Spent with patient: 25-34 minutes Medications reviewed and adjusted accordingly: Yes Anticipated discharge: Acute Rehab
[2017-10-16] MEDS ORDERED: FENTANYL CITRATE INJ/PF 100 MCG/2 ML AMPUL ONE ×3 (13:47→13:48)
[2017-10-16] MEDS ORDERED: PROPOFOL INJ 200 MG/20 ML VIAL IV ONE (13:47)
[2017-10-16] MEDS ORDERED: MIDAZOLAM 2 MG/2 ML INJ ONE ×2 (13:47→14:37)
[2017-10-16] MEDS ORDERED: ONDANSETRON HCL INJ/PF 4 MG/2 ML SDV ONE (13:47)
[2017-10-16] MEDS ORDERED: HYDROMORPHONE HCL INJ/PF 2 MG/ML AMPULE ONE (13:48)
[2017-10-16] MEDS ORDERED: CEFAZOLIN INJ 1 GM VIAL ONE (13:58)
[2017-10-16] MEDS ORDERED: BUPIVACAINE INJ/PF LIPOSOME/PF 266 MG/20 ML SDV ONE (14:47)
[2017-10-16] MEDS ORDERED: FENTANYL CITRATE INJ/PF 100 MCG/2 ML AMPUL IV PRN ×3 (14:49)
[2017-10-16] MEDS ORDERED: RINGERS SOLUTION,LACTATED 1,000 ML IV PRN (16:20)
[2017-10-16] MEDS ORDERED: IPRATROPIUM/ALBUTEROL 0.5-2.5 MG/3 ML AMPUL NEB ONE ×2 (16:23→16:45)
--- NOTE | 2017-10-16 16:50 | Operative Report ---
Operative Report DATE OF SURGERY: 10/16/17 PREOPERATIVE DIAGNOSIS: Right femoral neck fracture POSTOPERATIVE DIAGNOSIS: Same OPERATION: Right hip hemiarthroplasty SURGEON: MARIAH AMAYA ANESTHESIA: GA TISSUE REMOVED OR ALTERED: None COMPLICATIONS: None ESTIMATED BLOOD LOSS: 200 mL INTRAOPERATIVE FINDINGS: As above PROCEDURE: Procedure In Detail: Patient was seen and evaluated in the preoperative holding area. The right lower extremity was initialized and marked. Patient received 2g of Ancef IV for bacterial prophylaxis. Patient was taken back to the operative room where transferred to the operative table and placed under spinal anesthesia. Once they were adequately anesthetized patient was placed in the lateral position an axillary roll was placed in nonoperative left lower extremity was carefully padded. A surgical team debriefing was performed ensuring all instrumentation was available, the surgical procedure was discussed with possible concerns reviewed. The upper extremity was prepped with chlor prep draped in a sterile fashion. A timeout was done identifying correct patient, procedure and extremity everyone in attendance agree with this and verbalized no concerns. A posterior skin incision was made just posterior to the greater trochanter. Dissection was done down to the gluteus lester and iliotibial band fascia this was split in line with the skin incision. Any peripheral vasculature was carefully coagulated. A Charley retractor was placed after palpation of the sciatic nerve and the sciatic nerve was safely retracted from the wound throughout the entirety of the case. I then identified the external rotators with the use of a Bovie this was carefully elevated off along with underlying capsule from the neck in a T-shaped capsulotomy was made just superior to the piriformis. This was then tagged. The femoral neck was identified and approximately 1 fingerbreadth above the lesser trochanter a freshening cut was made. Any excess bone remaining was carefully removed. I then used the corkscrew to remove the femoral head from the acetabulum which was then measured on the back table. The excess bone was removed and removed the scopes irrigated with normal saline. I then trial the femoral head according to what was measured on the back table and got good fit within the acetabulum. I then turned my attention to femoral preparation. A box osteotome was first used to get laterally along the trochanter. I then used the lateralizing reamer to avoid medialization of the stem and ultimately varus malalignment. I then began broaching with a 0 broach and broached up to a #6 broach which was somewhat countersunk. I then utilized the calcar reamer reamed out the appropriate level. I then broached up to a #7 broach which I got good proximal fit. I began trialing with a #0 neck length and had good stability through flexion, internal rotation and adduction. There is no instability with external rotation. Leg lengths were found to be compatible and equal to the other side. At this point the trial implants were removed. The wound was irrigated with normal saline. I then implanted my appropriate size stem the good peripheral fit and placement at my predetermined broach level. I then implanted the final unipolar head. The hip was reduced once again measures stability and good stability throughout all range of motion with no palpable impingement. Leg lengths were equivalent to the nonoperative side. I then want to get pepper irrigated the wound with normal saline. Utilizing a #5 FiberWire suture I secured the capsule posteriorly into the trochanter. I then irrigated once again with normal saline. The gluteus lester and tensor fascia xander was closed with a running 0 Prolene suture. I then injected Exparel in multiple locations throughout the subcutaneous tissues , hip wound and the fascia. I then closed the subcutaneous tissues with interrupted 2-0 Vicryl suture. The skin was closed with celeste. Acticoat dressing and OpSite dressing was applied to the incision. Sponge counts, instrument counts and needle counts were correct. Patient was then awoken from anesthesia laid supine at which point her leg lengths were once again checked and found to be equal to the nonoperative extremity. Patient was then transferred to the operating stretcher and placed in an abduction pillow. The was no intraoperative crepitations patient tolerated she will was stable to PACU. Postoperative plan: Patient will be started on Lovenox for DVT prophylaxis. She will begin physical therapy on postop day #1. Implants: Accolade II Size 8, 43 Bipolar Head, +0 Neck Length
--- NOTE | 2017-10-16 17:38 | RADIOLOGY REPORT (SQ) ---
EXAM DESCRIPTION: HIP RIGHT AP/LATERAL COMPLETED DATE/TIME: 10/16/2017 5:09 pm REASON FOR STUDY: Post Op Long Cassette in PACU COMPARISON: 10/14/2017 NUMBER OF VIEWS: 2 view(s). TECHNIQUE: Digital radiographic images of the right hip post-procedure. LIMITATIONS: None. FINDINGS: BONES: No worrisome or unexpected findings post-procedure. DEVICE: Bi-polar prothesis. Device appears in appropriate location. SOFT TISSUES: No worrisome findings. Expected postoperative soft tissue changes. IMPRESSION: SATISFACTORY POSTOPERATIVE RIGHT HIP. TECHNICAL DOCUMENTATION: JOB ID: [id number] [employer]- All Rights Reserved Reading location - IP/workstation name: [email or web address]
[2017-10-16] MEDS: CEFAZOLIN 2 GM/D5W RTU 2 GM/50 ML RTUPB IV SCH ×2 (17:46→23:55)
[2017-10-16] MEDS: SENNOSIDES/DOCUSATE 8.6-50 MG 1 EACH TABLET PO SCH (17:46)
[2017-10-16 18:18] LABS: CREATINE KINASE MB 7.25 ng/mL (<4.55); TROPONIN I 0.056 ng/mL
[2017-10-16] MEDS: MORPHINE SULFATE 10 MG/ML INJ IV PRN ×2 (18:27→22:42)
--- NOTE | 2017-10-16 20:46 | Progress Note ---
Provider Note Provider Note: NOTE BY DR. PRASHANT Moreno, dated 10/16/2017. Patient was in the OR and hence not seen today Will get. EKG and cardiac enzymes in the a.m. of 10/17/2017. Nurses have been instructed to call me if any problems should arise. Will not charge the patient today.
[2017-10-16] MEDS ORDERED: CEFAZOLIN 1 GM/D5W RTU 4 GM/200 ML RTUPB IV ONE (22:41)
--- NOTE | 2017-10-16 22:53 | EKG REPORT ---
SEVERITY:- ABNORMAL ECG - SINUS RHYTHM MULTIPLE ATRIAL PREMATURE COMPLEXES FIRST DEGREE AV BLOCK CONSIDER OLD INFERIOR VT : Confirmed by: Sukhwinder Dinh MD 16-Oct-2017 22:52:32
[2017-10-16 23:57] LABS: CREATINE KINASE MB 6.76 ng/mL (<4.55); TROPONIN I 0.054 ng/mL
[2017-10-17] MEDS: IPRATROPIUM/ALBUTEROL 0.5-2.5 MG/3 ML AMPUL NEB SCH ×3 (00:02→16:08)
[2017-10-17 05:28] LABS: HEMATOCRIT 35.1 % (37.9-51.0); HEMOGLOBIN 11.8 g/dL (13.5-17.0); MEAN CORPUSCULAR HGB CONC 33.5 g/dL (32.0-36.0); MEAN CORPUSCULAR VOLUME 87 fl (80-97); PLATELET COUNT 147 10^3/uL (150-450); RED BLOOD COUNT 4.06 10^6/uL (4.35-5.55); RED CELL DISTRIBUTION WIDTH 14.5 % (11.5-14.0); WHITE BLOOD COUNT 11.8 10^3/uL (4.0-10.5)
[2017-10-17 05:48] LABS: ANION GAP 10 (5-19); BLOOD UREA NITROGEN 28 mg/dL (7-20); CALCIUM 7.8 mg/dL (8.4-10.2); CARBON DIOXIDE 27 mmol/L (22-30); CHLORIDE 99 mmol/L (98-107); GLUCOSE 131 mg/dL (75-110); POTASSIUM 4.9 mmol/L (3.6-5.0); SODIUM 135.6 mmol/L (137-145)
[2017-10-17] MEDS: CEFAZOLIN 2 GM/D5W RTU 2 GM/50 ML RTUPB IV SCH ×3 (06:15→17:18)
[2017-10-17] MEDS: CLINDAMYCIN HCL 150 MG CAPSULE PO SCH ×3 (06:15→22:47)
[2017-10-17] MEDS: SENNOSIDES/DOCUSATE 8.6-50 MG 1 EACH TABLET PO SCH ×2 (09:37→17:24)
[2017-10-17] MEDS: DOCUSATE SODIUM 100 MG CAPSULE PO SCH ×2 (09:37→17:24)
[2017-10-17] MEDS: PRENATAL VITAMIN W DHA CAPSULE PO SCH (09:37)
[2017-10-17] MEDS: MINERAL OIL/PETROLATUM,WHITE CREAM 114 GM TP SCH (09:40)
[2017-10-17 10:59] LABS: ARTERIAL BLOOD BASE EXCESS 1.6 mmol/L; ARTERIAL BLOOD H2CO3 1.24 mmol/L (1.05-1.35); ARTERIAL BLOOD HCO3 26.2 mmol/L (20-26); ARTERIAL BLOOD PCO2 41.1 mmHg (35-45); ARTERIAL BLOOD PH 7.42 (7.35-7.45); ARTERIAL BLOOD PO2 73.2 mmHg (80-100); ARTERIAL BLOOD TOTAL CO2 27.4 mmol/L (23-27)
[2017-10-17 11:03] LABS: ARTERIAL BLOOD FIO2 28%
[2017-10-17 11:13] LABS: HEMATOCRIT 34.9 % (37.9-51.0); HEMOGLOBIN 11.6 g/dL (13.5-17.0); MEAN CORPUSCULAR HEMOGLOBIN 28.9 pg (27.0-33.4); MEAN CORPUSCULAR HGB CONC 33.2 g/dL (32.0-36.0); MEAN CORPUSCULAR VOLUME 87 fl (80-97); PLATELET COUNT 151 10^3/uL (150-450); RED BLOOD COUNT 4.01 10^6/uL (4.35-5.55); RED CELL DISTRIBUTION WIDTH 14.2 % (11.5-14.0); WHITE BLOOD COUNT 11.8 10^3/uL (4.0-10.5)
--- NOTE | 2017-10-17 11:23 | RADIOLOGY REPORT (SQ) ---
EXAM DESCRIPTION: CHEST SINGLE VIEW COMPLETED DATE/TIME: 10/17/2017 11:03 am REASON FOR STUDY: dyspnea, crackles COMPARISON: 10/14/2017 EXAM PARAMETERS: NUMBER OF VIEWS: One view. TECHNIQUE: Single frontal radiographic view of the chest acquired. RADIATION DOSE: NA LIMITATIONS: None. FINDINGS: LUNGS AND PLEURA: Peripheral right lung interstitial changes appear more dense on today' s exam. No additional opacities. No pleural effusion or pneumothorax. MEDIASTINUM AND HILAR STRUCTURES: No masses. Contour normal. HEART AND VASCULAR STRUCTURES: Heart normal in size. Normal vasculature. BONES: No acute findings. HARDWARE: Unchanged left chest port. OTHER: No other significant finding. IMPRESSION: Peripheral right lung interstitial changes appear more dense on today's exam. Findings may represent pneumonia in the appropriate clinical setting. TECHNICAL DOCUMENTATION: JOB ID: [id number] [employer]- All Rights Reserved Reading location - IP/workstation name: [email or web address]
[2017-10-17 11:32] LABS: ANION GAP 12 (5-19); BLOOD UREA NITROGEN 29 mg/dL (7-20); CALCIUM 7.8 mg/dL (8.4-10.2); CARBON DIOXIDE 27 mmol/L (22-30); CHLORIDE 97 mmol/L (98-107); CREATINE KINASE 1307 U/L (55-170); GLUCOSE 148 mg/dL (75-110); POTASSIUM 4.4 mmol/L (3.6-5.0); SODIUM 135.9 mmol/L (137-145)
[2017-10-17 11:44] LABS: CREATINE KINASE MB 7.41 ng/mL (<4.55); TROPONIN I 0.033 ng/mL
--- NOTE | 2017-10-17 12:08 | RADIOLOGY REPORT (SQ) ---
EXAM DESCRIPTION: CT HEAD WITHOUT COMPLETED DATE/TIME: 10/17/2017 11:47 am REASON FOR STUDY: Lt side weakness COMPARISON: 10/14/2017 TECHNIQUE: Axial images acquired through the brain without intravenous contrast. Images reviewed wi th bone, brain and subdural windows. Additional sagittal and coronal reconstructions were generated. Images stored on PACS. All CT scanners at this facility use dose modulation, iterative reconstruction, and/or weight based d osing when appropriate to reduce radiation dose to as low as reasonably achievable (ALARA). [facility]: Dose Right [facility]: CareDose [facility]: Dose Right [facility]: Teradose 4D [facility]: Smart [employer] RADIATION DOSE: CT Rad equipment meets quality standard of care and radiation dose reduction techniq ues were employed. CTDIvol: 53.2 mGy. DLP: 1124 mGy-cm.mGy. LIMITATIONS: None. FINDINGS: VENTRICLES: Prominent. CEREBRUM: No masses. No hemorrhage. No midline shift. Areas of low density in the white matter mos t likely due to chronic micro-vascular ischemic change. No evidence for acute infarction. CEREBELLUM: No masses. No hemorrhage. No alteration of density. No evidence for acute infarction. EXTRAAXIAL SPACES: Age-related involutional change. No fluid collections. No masses. ORBITS AND GLOBE: No intra- or extraconal masses. Normal contour of globe without masses. CALVARIUM: No fracture. PARANASAL SINUSES: The previously described right maxillary sinus disease is unchanged. SOFT TISSUES: No mass or hematoma. OTHER: No other significant finding. IMPRESSION: CHRONIC CHANGES OF ATROPHY AND MICROVASCULAR ISCHEMIA. NO ACUTE PROCESS. EVIDENCE OF ACUTE STROKE: NO. TECHNICAL DOCUMENTATION: JOB ID: [id number] Quality ID # [id number]: Final reports with documentation of one or more dose reduction techniques (e.g., Au tomated exposure control, adjustment of the mA and/or kV according to patient size, use of iterative reconstruction technique) 2010 [employer]- All Rights Reserved Reading location - IP/workstation name: [email or web address]
--- NOTE | 2017-10-17 12:56 | EKG REPORT ---
SEVERITY:- ABNORMAL ECG - SINUS RHYTHM MULTIPLE PREMATURE COMPLEXES, SUPRAVEN PROBABLE LEFT ATRIAL ABNORMALITY PROBABLE INFERIOR INFARCT, AGE INDETERMINATE CONSIDER POSTERIOR WALL INVOLVEMENT : Confirmed by: Sukhwinder Dinh MD 17-Oct-2017 12:56:06
[2017-10-17] MEDS: MORPHINE SULFATE 10 MG/ML INJ IV PRN ×2 (13:21→17:18)
[2017-10-17] MEDS ORDERED: RINGERS SOLUTION,LACTATED 1,000 ML IV PRN (14:09)
--- NOTE | 2017-10-17 14:28 | PDOC PROGRESS REPORT ---
Subjective Progress Note for:: 10/17/17 Subjective:: The patient is an 86 year old male with a past medical history of lymphoma ( unknown type/staging; declining further treatment), COPD, CHF, debility, and BLE venous stasis dermatitis (chronic) who was admitted 10/15/17 for a Rt hip fracture secondary to mechanical fall. The patient is seen on morning rounds, he is found resting in bed comfortably on supplemental oxygen at 2 lpm. The patient is awake and oriented to self, place, situation, the year 1981 but the president Dianne. He does report that he is too weak to eat breakfast and reports that he is having difficulty with utensils. The patient states that his pain is much better controlled today and that he slept well. He denies fever, chills, headache, dizziness, chest pain, palpitations, dyspnea, orthopnea, cough, abdominal pain, nausea, vomiting, and diarrhea. Nursing has also noted a slight LUE weakness. Reason For Visit: STATUS POST RIGHT HIP HEMIARTHROPLASTY Physical Exam Vital Signs: Temp Pulse Resp BP Pulse Ox 99.3 F 89 18 136/57 H 100 10/17/17 13:19 10/17/17 13:19 10/17/17 13:19 10/17/17 13:19 10/17/17 13:19 Intake & Output 10/16/17 10/17/17 10/18/17 06:59 06:59 06:59 Intake Total 990 4670 Output Total 1050 1800 Balance -60 2870 Weight 94.2 kg 94.2 kg General appearance: PRESENT: no acute distress, cooperative, well-developed, well-nourished, other - Overweight Head exam: PRESENT: atraumatic, normocephalic Eye exam: PRESENT: conjunctiva pink, EOMI, PERRLA. ABSENT: scleral icterus Ear exam: PRESENT: normal external ear exam Mouth exam: PRESENT: moist, tongue midline Teeth exam: PRESENT: poor dentation Neck exam: ABSENT: carotid bruit, JVD, lymphadenopathy, thyromegaly Respiratory exam: PRESENT: crackles - fine crackles, RLL, decreased breath sounds - bibasilar, symmetrical, unlabored. ABSENT: rales, rhonchi, wheezes Cardiovascular exam: PRESENT: RRR, systolic murmur. ABSENT: diastolic murmur, rubs Pulses: PRESENT: normal dorsalis pedis pul Vascular exam: PRESENT: normal capillary refill GI/Abdominal exam: PRESENT: normal bowel sounds, soft. ABSENT: distended, guarding, mass, organolmegaly, rebound, tenderness Rectal exam: PRESENT: deferred Extremities exam: PRESENT: tenderness - RLE, +1 edema - BUE. ABSENT: calf tenderness, clubbing, pedal edema Neurological exam: PRESENT: alert, awake, oriented to person, oriented to place , oriented to situation, CN II-XII grossly intact, other - Decreased fairing man strength left greater than right; slow to follow directions, requires repeat prompting. Otherwise normal neuro exam.. ABSENT: oriented to time, motor sensory deficit Psychiatric exam: PRESENT: appropriate affect, normal mood. ABSENT: homicidal ideation, suicidal ideation Skin exam: PRESENT: dry, intact, warm. ABSENT: cyanosis, rash Results Laboratory Results: 10/17/17 10:53 10/17/17 10:53 10/17/17 10/17/17 10/17/17 05:12 05:12 10:42 WBC 11.8 H RBC 4.06 L Hgb 11.8 L Hct 35.1 L MCV 87 MCH 29.0 MCHC 33.5 RDW 14.5 H Plt Count 147 L Carbonic Acid 1.24 HCO3/H2CO3 Ratio 21:1 ABG pH 7.42 ABG pCO2 41.1 ABG pO2 73.2 L ABG HCO3 26.2 H ABG O2 Saturation 95.0 ABG Base Excess 1.6 FiO2 28% Sodium 135.6 L Potassium 4.9 Chloride 99 Carbon Dioxide 27 Anion Gap 10 BUN 28 H Creatinine 1.41 H Est GFR ( Amer) 58 L Est GFR (Non-Af Amer) 48 L Glucose 131 H Calcium 7.8 L Phosphorus Magnesium 10/17/17 10/17/17 10:53 10:53 WBC 11.8 H RBC 4.01 L Hgb 11.6 L Hct 34.9 L MCV 87 MCH 28.9 MCHC 33.2 RDW 14.2 H Plt Count 151 Carbonic Acid HCO3/H2CO3 Ratio ABG pH ABG pCO2 ABG pO2 ABG HCO3 ABG O2 Saturation ABG Base Excess FiO2 Sodium 135.9 L Potassium 4.4 Chloride 97 L Carbon Dioxide 27 Anion Gap 12 BUN 29 H Creatinine 1.36 H Est GFR ( Amer) > 60 Est GFR (Non-Af Amer) 50 L Glucose 148 H Calcium 7.8 L Phosphorus 4.0 Magnesium 1.8 10/15/17 10/15/17 10/15/17 03:15 03:15 10:30 Creatine Kinase 122 368 H CK-MB (CK-2) 1.31 Troponin I < 0.012 NT-Pro-B Natriuret Pep 10/15/17 10/15/17 10/15/17 10:30 16:55 16:55 Creatine Kinase CK-MB (CK-2) 2.92 Troponin I 0.018 0.036 NT-Pro-B Natriuret Pep 2240 H 10/16/17 10/16/17 10/16/17 06:12 06:12 17:30 Creatine Kinase 923 H 1244 H CK-MB (CK-2) Troponin I 0.064 NT-Pro-B Natriuret Pep 10/16/17 10/16/17 10/16/17 17:35 23:20 23:20 Creatine Kinase 1271 H CK-MB (CK-2) 7.25 H 6.76 H Troponin I 0.056 0.054 NT-Pro-B Natriuret Pep 10/17/17 10/17/17 10:53 10:53 Creatine Kinase 1307 H CK-MB (CK-2) 7.41 H Troponin I 0.033 NT-Pro-B Natriuret Pep 2910 H Impressions: Hip/Pelvis X-Ray 10/16/17 16:39 IMPRESSION: SATISFACTORY POSTOPERATIVE RIGHT HIP. Chest X-Ray 10/17/17 00:00 IMPRESSION: Peripheral right lung interstitial changes appear more dense on today's exam. Findings may represent pneumonia in the appropriate clinical setting. Head CT 10/17/17 00:00 IMPRESSION: CHRONIC CHANGES OF ATROPHY AND MICROVASCULAR ISCHEMIA. NO ACUTE PROCESS. EVIDENCE OF ACUTE STROKE: NO. Assessment & Plan - Diagnosis (1) Fracture of head of right femur Qualifiers: Encounter type: initial encounter Fracture type: closed Qualified Code(s) : S72.051A - Unspecified fracture of head of right femur, initial encounter for closed fracture Is this a current diagnosis for this admission?: Yes Plan: Secondary to mechanical fall. Now POD #1 right hip hemiarthroplasty. Primary plan per orthopedics. Cardiology has been consulted and has provided cardiac clearance. Analgesics and antiemetics as needed. (2) Cellulitis Qualifiers: Site of cellulitis: extremity Site of cellulitis of extremity: lower extremity Laterality: right Qualified Code(s): L03.115 - Cellulitis of right lower limb Is this a current diagnosis for this admission?: Yes Plan: Continues to imrpve. Secondary to chronic venous stasis and venous ulcerations. Bilateral lower extremities are edematous; +2 LLE, +1 right LLE. Anterior erythema (les intense), multiple shallow ulcerations, and sanguinous drainage is noted. Continue p.o. clindamycin; will benefit with podiatry and possibly wound clinic follow-up as outpatient. (3) COPD (chronic obstructive pulmonary disease) Is this a current diagnosis for this admission?: Yes Plan: Without current exacerbation. Patient denies all medications. As needed nebulizer treatments are available. Supplemental oxygen as needed to maintain saturations greater than 88%. Flutter valve and incentive spirometry to bedside. (4) Congestive heart failure Qualifiers: Heart failure type: diastolic Heart failure chronicity: chronic Qualified Code(s): I50.32 - Chronic diastolic (congestive) heart failure Is this a current diagnosis for this admission?: Yes Plan: Echocardiogram reveals preserved ejection fraction, mild diastolic dysfunction, trace mitral regurgitation, mild tricuspid regurgitation, and moderate pulmonary hypertension. ProBNP trending up 2240--> 2910 Troponins now trending down; peaked at 0.064, currently 0.033. Noted to have RLL crackles in increased bilateral upper extremity edema today. IV fluids are decreased to 50 mL's per hour as he still has poor p.o. intake. will monitor closely and stop fluids and begin diuresis if clinical exam worsens. Daily weights and Strict I&Os. (5) Debility Is this a current diagnosis for this admission?: Yes Plan: Anticipate SNF for short-term rehabilitation upon discharge. Discharge planning is consulted. (6) Fall Qualifiers: Encounter type: initial encounter Qualified Code(s): W19.XXXA - Unspecified fall, initial encounter Is this a current diagnosis for this admission?: Yes Plan: Mechanical fall at home. Fall precautions are in place. Remaining plan as above. (7) Kidney insufficiency Is this a current diagnosis for this admission?: Yes Plan: Unclear baseline; creatinine appears to be stable near 1.36 Creatine kinase is increased; 116--> 122--> 368--> 923--> 1307 We will avoid nephrotoxic medications as able. Le catheter has been placed for strict I&Os. Continue gentle IV fluids; limited secondary to CHF, slight crackles, and increased edema on exam. We will monitor with daily chemistries. (8) Rhabdomyolysis Qualifiers: Rhabdomyolysis type: traumatic Is this a current diagnosis for this admission?: Yes Plan: Secondary to fall resulting in right hip fracture. Creatine kinase increasing; 116--> 122--> 368--> 923--> 1307 Le catheter has been placed for strict I&Os. Continue gentle IV fluids; limited secondary to CHF, slight crackles, and increased edema on exam. Will continue to trend. Early mobility/position changes once approved by orthopedics. (9) Left arm weakness Is this a current diagnosis for this admission?: Yes Plan: Patient is postop day 1. He complained of difficulty eating this morning due to not being able to manage his utensils. He was noted to have left upper extremity weakness, but otherwise a normal neuro exam. Although, exam is limited secondary to recent hip fracture repair with abductor pillow. Head CT was negative for acute CVA. Chest x-ray demonstrated RLL density, perhaps slightly worsened from the previous exam. EKG unchanged from previously. ABG is reassuring. Laboratory evaluation including CBC, BMP, magnesium, phosphorus, troponin and BNP all as expected. Likely the patient's weakness is related to generalized debility, sedation, analgesic medications, etc. PT/OT is consulted. Low suspicion for TIA/CVA; patient is alert and oriented, no other focalized deficits identified, speech is clear. Therefore, will hold on MRI and carotid Doppler. - Time Time Spent with patient: 35 or more minutes Medications reviewed and adjusted accordingly: Yes Anticipated discharge: Acute Rehab
[2017-10-17] MEDS: CYCLOBENZAPRINE HCL 10 MG TABLET PO PRN (14:54)
--- NOTE | 2017-10-17 16:31 | PDOC PROGRESS REPORT ---
Subjective Progress Note for:: 10/17/17 Subjective:: Patient is resting comfortably in bed. No issues overnight. Therapy was able to sit him at the edge of the bed. Reason For Visit: STATUS POST RIGHT HIP HEMIARTHROPLASTY Physical Exam Vital Signs: Temp Pulse Resp BP Pulse Ox 37.4 C 93 18 136/57 H 100 10/17/17 13:19 10/17/17 15:00 10/17/17 13:19 10/17/17 13:19 10/17/17 13:19 Intake & Output 10/16/17 10/17/17 10/18/17 06:59 06:59 06:59 Intake Total 990 4670 50 Output Total 1050 1800 Balance -60 2870 50 Weight 94.2 kg 94.2 kg Adult Front & Back Image: 1 - Dressing is dry clean and intact. Limb lengths are grossly equal. Neurovascular intact distally with the pillow between the legs. Results Laboratory Results: 10/17/17 10:53 10/17/17 10:53 10/17/17 10/17/17 10/17/17 05:12 05:12 10:42 WBC 11.8 H RBC 4.06 L Hgb 11.8 L Hct 35.1 L MCV 87 MCH 29.0 MCHC 33.5 RDW 14.5 H Plt Count 147 L Carbonic Acid 1.24 HCO3/H2CO3 Ratio 21:1 ABG pH 7.42 ABG pCO2 41.1 ABG pO2 73.2 L ABG HCO3 26.2 H ABG O2 Saturation 95.0 ABG Base Excess 1.6 FiO2 28% Sodium 135.6 L Potassium 4.9 Chloride 99 Carbon Dioxide 27 Anion Gap 10 BUN 28 H Creatinine 1.41 H Est GFR ( Amer) 58 L Est GFR (Non-Af Amer) 48 L Glucose 131 H Calcium 7.8 L Phosphorus Magnesium 10/17/17 10/17/17 10:53 10:53 WBC 11.8 H RBC 4.01 L Hgb 11.6 L Hct 34.9 L MCV 87 MCH 28.9 MCHC 33.2 RDW 14.2 H Plt Count 151 Carbonic Acid HCO3/H2CO3 Ratio ABG pH ABG pCO2 ABG pO2 ABG HCO3 ABG O2 Saturation ABG Base Excess FiO2 Sodium 135.9 L Potassium 4.4 Chloride 97 L Carbon Dioxide 27 Anion Gap 12 BUN 29 H Creatinine 1.36 H Est GFR ( Amer) > 60 Est GFR (Non-Af Amer) 50 L Glucose 148 H Calcium 7.8 L Phosphorus 4.0 Magnesium 1.8 10/15/17 10/15/17 10/15/17 03:15 03:15 10:30 Creatine Kinase 122 368 H CK-MB (CK-2) 1.31 Troponin I < 0.012 NT-Pro-B Natriuret Pep 10/15/17 10/15/17 10/15/17 10:30 16:55 16:55 Creatine Kinase CK-MB (CK-2) 2.92 Troponin I 0.018 0.036 NT-Pro-B Natriuret Pep 2240 H 10/16/17 10/16/17 10/16/17 06:12 06:12 17:30 Creatine Kinase 923 H 1244 H CK-MB (CK-2) Troponin I 0.064 NT-Pro-B Natriuret Pep 10/16/17 10/16/17 10/16/17 17:35 23:20 23:20 Creatine Kinase 1271 H CK-MB (CK-2) 7.25 H 6.76 H Troponin I 0.056 0.054 NT-Pro-B Natriuret Pep 10/17/17 10/17/17 10:53 10:53 Creatine Kinase 1307 H CK-MB (CK-2) 7.41 H Troponin I 0.033 NT-Pro-B Natriuret Pep 2910 H Impressions: Hip/Pelvis X-Ray 10/16/17 16:39 IMPRESSION: SATISFACTORY POSTOPERATIVE RIGHT HIP. Chest X-Ray 10/17/17 00:00 IMPRESSION: Peripheral right lung interstitial changes appear more dense on today's exam. Findings may represent pneumonia in the appropriate clinical setting. Head CT 10/17/17 00:00 IMPRESSION: CHRONIC CHANGES OF ATROPHY AND MICROVASCULAR ISCHEMIA. NO ACUTE PROCESS. EVIDENCE OF ACUTE STROKE: NO. Status: Image reviewed by me Assessment & Plan - Plan Summary Plan Summary: 86-year-old gentleman postop day 1 from right hip hemiarthroplasty. Continue DVT prophylaxis as well as physical therapy. Continue pain control. Anticipate patient will require transfer to intermediate facility.
[2017-10-17] MEDS: HEPARIN SOD (PORCINE) 5,000 UNIT/ML 1 ML SYRINGE SUBCUT SCH (22:47)
[2017-10-18] MEDS: CEFAZOLIN 2 GM/D5W RTU 2 GM/50 ML RTUPB IV SCH ×4 (00:10→23:25)
[2017-10-18] MEDS: IPRATROPIUM/ALBUTEROL 0.5-2.5 MG/3 ML AMPUL NEB SCH ×4 (00:38→23:55)
[2017-10-18] MEDS: MORPHINE SULFATE 10 MG/ML INJ IV PRN ×2 (00:38→10:31)
--- NOTE | 2017-10-18 05:16 | PROGRESS NOTE E ---
Progress Note NAME: NAE JOYA : 1930 AGE: 86Y DATE: 10/17/2017 ROOM: 534 SUBJECTIVE: The patient had *------* surgery yesterday. He denies any chest pain or discomfort. His surgical incisional pain is well controlled with current medication. There are no palpitations. There is no PND, orthopnea, or leg edema. There is no cough or sputum production or wheezing. There are no anginal symptoms. There are no TIA or CVA symptoms. There are no arrhythmias seen on the monitor. OBJECTIVE: GENERAL: The patient is well built and well nourished, in no acute distress. VITAL SIGNS: His temperature is 99.1 degrees Fahrenheit. His pulse is 85 beats per minute. Blood pressure is 113/75. Respirations are 20 per minute. O2 sats are 100% on 4 L nasal cannula. HEAD: Atraumatic, normocephalic. EYES: Pupils are equal, round, regular, reactive to light and accommodation. Extraocular movements are normal. There is no conjunctival pallor. There is no scleral icterus. NECK: There is no goiter. Trachea is central. LUNGS: Show diminished air entry, prolonged expiration, without any rhonchi, rales, or wheezing. On percussion, there is hyperresonance throughout. There is no chest wall tenderness. HEART: S1, S2 are heard. There is no S3 gallop. There is no S4 gallop. There is a systolic murmur in the left sternal border on the apex. There is no rub. ABDOMEN: Soft, nontender. There is no hepatosplenomegaly. Bowel sounds are well heard. EXTREMITIES: Femorals are diminished. Leg pulses are diminished. There are no femoral bruits. There is no pedal edema. There is no DVT or cellulitis. There is no calf tenderness. The right hip surgical dressing is clean and dry. CENTRAL NERVOUS SYSTEM: The patient is conscious, awake, alert, oriented x3, with no focal deficit. PSYCHIATRIC: The patient's judgment and insight are intact. His affect is normal. DIAGNOSTIC STUDIES: The patient's EKG shows sinus rhythm, shows APCs present, probable old inferior PR. LABORATORY DATA: The patient's white count is 11,800. Hemoglobin is 11.6. Hematocrit is 34.9. Platelet count is 151,000. The patient's sodium is 133.9, potassium 4.4, chloride is 97. The patient's CO2 is 27. The patient's BUN is 29, creatinine is 1.36. GFR is reduced at 50 mL, and his glucose is 148. His calcium is 7.8. His phosphorus is 4.0. His magnesium is 1.8. His CPK is elevated at 1307, with a CPK-MB elevated at 7.41. His troponin I has been 0.054 yesterday night and this morning it is 0.033. His anti-proBNP is 2910. IMPRESSION 1. RIGHT FEMORAL NECK FRACTURE STATUS POST SURGERY, STABLE. 2. NO POSTOPERATIVE MYOCARDIAL INFARCTION OR ACUTE CORONARY SYNDROME. 3. HYPERTENSION. Blood pressure well controlled without medication. 4. COPD, STABLE, WITHOUT EVIDENCE OF EXACERBATION. 5. SYSTOLIC MURMUR, MILD, HEMODYNAMICALLY INSIGNIFICANT AORTIC STENOSIS. 6. MODERATE PULMONARY HYPERTENSION. 7. HISTORY OF DIABETES MELLITUS. Last hemoglobin A1c was within normal limits of 5.9. 8. HISTORY OF LYMPHOMA. Status of lymphoma is not known. 9. 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 RECOMMENDATIONS: Continue his current medications. Later, would recommend that the patient be referred to oncologist for followup of his lymphoma. His medications have been reviewed. Push p.o. fluids to combat the prerenal state of the patient. Forty minutes were spent on this patient, with more than 50% of the time spent in direct patient care. I have discussed the EKG and the lab findings with the patient. Medical decision making is of moderate complexity. NOTE: The patient is a full code. His daughter is the surrogate healthcare decision maker. Discussed with the hospitalist taking care of the patient. Discussed with the other caregiving providers on the case. Will follow with you. Will repeat troponin I in the morning. Thanking you. DICTATING PHYSICIAN: PRASHANT SIMMONS M.D. [id number] PHY#: [id number] ID: [id number] JOB#: [id number] ACCT: [id number] cc: >
[2017-10-18 06:34] LABS: HEMATOCRIT 32.4 % (37.9-51.0); HEMOGLOBIN 10.8 g/dL (13.5-17.0); MEAN CORPUSCULAR HEMOGLOBIN 29.2 pg (27.0-33.4); MEAN CORPUSCULAR HGB CONC 33.4 g/dL (32.0-36.0); MEAN CORPUSCULAR VOLUME 87 fl (80-97); PLATELET COUNT 129 10^3/uL (150-450); RED BLOOD COUNT 3.72 10^6/uL (4.35-5.55); RED CELL DISTRIBUTION WIDTH 14.2 % (11.5-14.0); WHITE BLOOD COUNT 9.7 10^3/uL (4.0-10.5)
[2017-10-18] MEDS: CLINDAMYCIN HCL 150 MG CAPSULE PO SCH ×3 (06:50→21:42)
[2017-10-18] MEDS: HEPARIN SOD (PORCINE) 5,000 UNIT/ML 1 ML SYRINGE SUBCUT SCH ×2 (06:51→13:41)
[2017-10-18 06:57] LABS: ANION GAP 10 (5-19); BLOOD UREA NITROGEN 37 mg/dL (7-20); CALCIUM 7.8 mg/dL (8.4-10.2); CARBON DIOXIDE 27 mmol/L (22-30); CHLORIDE 98 mmol/L (98-107); GLUCOSE 106 mg/dL (75-110); POTASSIUM 4.2 mmol/L (3.6-5.0); SODIUM 134.7 mmol/L (137-145)
[2017-10-18] MEDS: DOCUSATE SODIUM 100 MG CAPSULE PO SCH ×2 (10:31→19:36)
[2017-10-18] MEDS: SENNOSIDES/DOCUSATE 8.6-50 MG 1 EACH TABLET PO SCH ×2 (10:31→19:36)
[2017-10-18] MEDS: MINERAL OIL/PETROLATUM,WHITE CREAM 114 GM TP SCH (10:37)
[2017-10-18] MEDS: PRENATAL VITAMIN W DHA CAPSULE PO SCH (14:00)
[2017-10-18] MEDS: CYCLOBENZAPRINE HCL 10 MG TABLET PO PRN (15:03)
--- NOTE | 2017-10-18 16:16 | PDOC PROGRESS REPORT ---
Subjective Progress Note for:: 10/18/17 Subjective:: The patient is an 86 year old male with a past medical history of lymphoma ( unknown type/staging; declining further treatment), COPD, CHF, debility, and BLE venous stasis dermatitis (chronic) who was admitted 10/15/17 for a Rt hip fracture secondary to mechanical fall. The patient is seen on morning rounds, he is found resting in bed comfortably on supplemental oxygen at 2 lpm. The patient is sleeping but wakes easily when I say his name. He is alert and oriented 4 this morning. He tells me that he is feeling better than he did yesterday and that his pain is well controlled. He denies fever, chills, headache, dizziness, chest pain, palpitations, dyspnea , orthopnea, cough, abdominal pain, nausea, vomiting, and diarrhea. He has no questions or concerns at this time. Reason For Visit: STATUS POST RIGHT HIP HEMIARTHROPLASTY Physical Exam Vital Signs: Temp Pulse Resp BP Pulse Ox 97.7 F 77 20 126/52 H 99 10/18/17 12:46 10/18/17 14:00 10/18/17 12:46 10/18/17 12:46 10/18/17 12:46 Intake & Output 10/17/17 10/18/17 10/19/17 06:59 06:59 06:59 Intake Total 4670 1139 1050 Output Total 1800 1350 Balance 2870 -211 1050 Weight 94.2 kg 102.8 kg General appearance: PRESENT: no acute distress, cooperative, well-developed, well-nourished Head exam: PRESENT: atraumatic, normocephalic Eye exam: PRESENT: conjunctiva pink, EOMI, PERRLA. ABSENT: scleral icterus Ear exam: PRESENT: normal external ear exam Mouth exam: PRESENT: moist, tongue midline Teeth exam: PRESENT: poor dentation Neck exam: ABSENT: carotid bruit, JVD, lymphadenopathy, thyromegaly Respiratory exam: PRESENT: clear to auscultation ricardo - Crackles have resolved, decreased breath sounds - Bibasilar, symmetrical, unlabored. ABSENT: rales, rhonchi, wheezes Cardiovascular exam: PRESENT: RRR, +S1, +S2. ABSENT: diastolic murmur, rubs, systolic murmur Pulses: PRESENT: normal dorsalis pedis pul Vascular exam: PRESENT: normal capillary refill GI/Abdominal exam: PRESENT: normal bowel sounds, soft. ABSENT: distended, guarding, mass, organolmegaly, rebound, tenderness Rectal exam: PRESENT: deferred Extremities exam: PRESENT: tenderness - RLE, +2 edema - Chronic lymphedema/ venous stasis changes; edema appears to be improved from yesterday.. ABSENT: calf tenderness, clubbing, pedal edema Neurological exam: PRESENT: alert, awake, oriented to person, oriented to place , oriented to time, oriented to situation, CN II-XII grossly intact, other - Today associate teacher are equal; movement is slow, however intention tremor has resolved, answers questions appropriately and follows directions without requiring repeated prompting. ABSENT: motor sensory deficit Psychiatric exam: PRESENT: appropriate affect, normal mood. ABSENT: homicidal ideation, suicidal ideation Skin exam: PRESENT: dry, erythema - Right lower extremity; improved appearance from yesterday, warm. ABSENT: cyanosis, rash Results Laboratory Results: 10/18/17 06:15 10/18/17 06:15 10/18/17 10/18/17 06:15 06:15 WBC 9.7 RBC 3.72 L Hgb 10.8 L Hct 32.4 L MCV 87 MCH 29.2 MCHC 33.4 RDW 14.2 H Plt Count 129 L Sodium 134.7 L Potassium 4.2 Chloride 98 Carbon Dioxide 27 Anion Gap 10 BUN 37 H Creatinine 1.38 H Est GFR ( Amer) 59 L Est GFR (Non-Af Amer) 49 L Glucose 106 Calcium 7.8 L 10/15/17 10/15/17 10/15/17 03:15 03:15 10:30 Creatine Kinase 122 368 H CK-MB (CK-2) 1.31 Troponin I < 0.012 NT-Pro-B Natriuret Pep 10/15/17 10/15/17 10/15/17 10:30 16:55 16:55 Creatine Kinase CK-MB (CK-2) 2.92 Troponin I 0.018 0.036 NT-Pro-B Natriuret Pep 2240 H 10/16/17 10/16/17 10/16/17 06:12 06:12 17:30 Creatine Kinase 923 H 1244 H CK-MB (CK-2) Troponin I 0.064 NT-Pro-B Natriuret Pep 10/16/17 10/16/17 10/16/17 17:35 23:20 23:20 Creatine Kinase 1271 H CK-MB (CK-2) 7.25 H 6.76 H Troponin I 0.056 0.054 NT-Pro-B Natriuret Pep 10/17/17 10/17/17 10/18/17 10:53 10:53 06:15 Creatine Kinase 1307 H CK-MB (CK-2) 7.41 H Troponin I 0.033 0.015 NT-Pro-B Natriuret Pep 2910 H Impressions: Hip/Pelvis X-Ray 10/16/17 16:39 IMPRESSION: SATISFACTORY POSTOPERATIVE RIGHT HIP. Chest X-Ray 10/17/17 00:00 IMPRESSION: Peripheral right lung interstitial changes appear more dense on today's exam. Findings may represent pneumonia in the appropriate clinical setting. Head CT 10/17/17 00:00 IMPRESSION: CHRONIC CHANGES OF ATROPHY AND MICROVASCULAR ISCHEMIA. NO ACUTE PROCESS. EVIDENCE OF ACUTE STROKE: NO. Assessment & Plan - Diagnosis (1) Fracture of head of right femur Qualifiers: Encounter type: initial encounter Fracture type: closed Qualified Code(s) : S72.051A - Unspecified fracture of head of right femur, initial encounter for closed fracture Is this a current diagnosis for this admission?: Yes Plan: Secondary to mechanical fall. Now POD #2 right hip hemiarthroplasty. Primary plan per orthopedics. Cardiology was consulted and provided cardiac clearance. Analgesics and antiemetics as needed. Lovenox for DVT prophylaxis per orthopedics recommendations. Anticipate discharge to acute rehabilitation; has a bed offer at [facility]. (2) Cellulitis Qualifiers: Site of cellulitis: extremity Site of cellulitis of extremity: lower extremity Laterality: right Qualified Code(s): L03.115 - Cellulitis of right lower limb Is this a current diagnosis for this admission?: Yes Plan: Continues to improve. Secondary to chronic venous stasis and venous ulcerations. Bilateral lower extremities are edematous; +2 LLE, +1 right LLE. Anterior dull erythema, multiple shallow ulcerations; drainage has resolved. Continue p.o. clindamycin; will benefit with podiatry and possibly wound clinic follow-up as outpatient. (3) COPD (chronic obstructive pulmonary disease) Is this a current diagnosis for this admission?: Yes Plan: Without current exacerbation. Patient denies all medications. As needed nebulizer treatments are available. Supplemental oxygen as needed to maintain saturations greater than 88%. Flutter valve and incentive spirometry to bedside. (4) Congestive heart failure Qualifiers: Heart failure type: diastolic Heart failure chronicity: chronic Qualified Code(s): I50.32 - Chronic diastolic (congestive) heart failure Is this a current diagnosis for this admission?: Yes Plan: Echocardiogram reveals preserved ejection fraction, mild diastolic dysfunction, trace mitral regurgitation, mild tricuspid regurgitation, and moderate pulmonary hypertension. ProBNP trending up 2240--> 2910 Troponins now trending down; peaked at 0.064, currently 0.015. Noted to have RLL crackles in increased bilateral upper extremity edema yesterday; crackles have resolved and edema is improving. IVF are discontinued. Will monitor closely and provide additional diuresis if clinical exam worsens. Daily weights and Strict I&Os. (5) Debility Is this a current diagnosis for this admission?: Yes Plan: Anticipate SNF for short-term rehabilitation upon discharge. Discharge planning is consulted. (6) Fall Qualifiers: Encounter type: initial encounter Qualified Code(s): W19.XXXA - Unspecified fall, initial encounter Is this a current diagnosis for this admission?: Yes Plan: Mechanical fall at home. Fall precautions are in place. Remaining plan as above. (7) Kidney insufficiency Is this a current diagnosis for this admission?: Yes Plan: Unclear baseline; creatinine appears to be stable near 1.36 Creatine kinase is increased; 116--> 122--> 368--> 923--> 1307 We will avoid nephrotoxic medications as able. Le catheter has been placed for strict I&Os. We will monitor with daily chemistries. (8) Rhabdomyolysis Qualifiers: Rhabdomyolysis type: traumatic Is this a current diagnosis for this admission?: Yes Plan: Secondary to fall resulting in right hip fracture. Creatine kinase increasing; 116--> 122--> 368--> 923--> 1307 Le catheter has been placed for strict I&Os. Encourage p.o. fluids. Will continue to trend. Early mobility/position changes once approved by orthopedics. (9) Left arm weakness Is this a current diagnosis for this admission?: Yes Plan: Resolved; associate teacher are equal today. Likely r/t sedation from anesthesia the day previously opiate medications for treatment of hip pain. Patient was postop day 1. He complained of difficulty eating this morning due to not being able to manage his utensils. He was noted to have left upper extremity weakness, but otherwise a normal neuro exam. Although, exam is limited secondary to recent hip fracture repair with abductor pillow. Head CT was negative for acute CVA. Chest x-ray demonstrated RLL density, perhaps slightly worsened from the previous exam. EKG unchanged from previously. ABG is reassuring. Laboratory evaluation including CBC, BMP, magnesium, phosphorus, troponin and BNP all as expected. Likely the patient's weakness is related to generalized debility, sedation, analgesic medications, etc. PT/OT is consulted. Low suspicion for TIA/CVA; patient is alert and oriented, no other focalized deficits identified, speech is clear. Therefore, will hold on MRI and carotid Doppler. - Time Time Spent with patient: 25-34 minutes Medications reviewed and adjusted accordingly: Yes Anticipated discharge: Acute Rehab Within: Other - When cleared by orthopedics.
[2017-10-18] MEDS ORDERED: FUROSEMIDE 20 MG TABLET PO ONE (16:30)
--- NOTE | 2017-10-18 18:08 | PDOC PROGRESS REPORT ---
Subjective Progress Note for:: 10/18/17 Subjective:: Patient eating breakfast this morning with no issues. Was able to sit at the edge of the bed and therapy. Pain is controlled Reason For Visit: STATUS POST RIGHT HIP HEMIARTHROPLASTY Physical Exam Vital Signs: Temp Pulse Resp BP Pulse Ox 36.4 C 80 20 110/74 100 10/18/17 16:34 10/18/17 16:34 10/18/17 16:34 10/18/17 16:34 10/18/17 16:34 Intake & Output 10/17/17 10/18/17 10/19/17 06:59 06:59 06:59 Intake Total 4670 1139 1050 Output Total 1800 1350 Balance 2870 -211 1050 Weight 94.2 kg 102.8 kg General appearance: PRESENT: no acute distress Head exam: PRESENT: atraumatic Adult Front & Back Image: 1 - Dressing is dry clean and intact with mild bloody drainage. Limb lengths are grossly equal. Is able to flex and extend his ankle and toes. Has gross sensation to touch. Negative Homans sign Results Laboratory Results: 10/18/17 06:15 10/18/17 06:15 10/18/17 10/18/17 06:15 06:15 WBC 9.7 RBC 3.72 L Hgb 10.8 L Hct 32.4 L MCV 87 MCH 29.2 MCHC 33.4 RDW 14.2 H Plt Count 129 L Sodium 134.7 L Potassium 4.2 Chloride 98 Carbon Dioxide 27 Anion Gap 10 BUN 37 H Creatinine 1.38 H Est GFR ( Amer) 59 L Est GFR (Non-Af Amer) 49 L Glucose 106 Calcium 7.8 L 10/15/17 10/15/17 10/15/17 03:15 03:15 10:30 Creatine Kinase 122 368 H CK-MB (CK-2) 1.31 Troponin I < 0.012 NT-Pro-B Natriuret Pep 10/15/17 10/15/17 10/15/17 10:30 16:55 16:55 Creatine Kinase CK-MB (CK-2) 2.92 Troponin I 0.018 0.036 NT-Pro-B Natriuret Pep 2240 H 10/16/17 10/16/17 10/16/17 06:12 06:12 17:30 Creatine Kinase 923 H 1244 H CK-MB (CK-2) Troponin I 0.064 NT-Pro-B Natriuret Pep 10/16/17 10/16/17 10/16/17 17:35 23:20 23:20 Creatine Kinase 1271 H CK-MB (CK-2) 7.25 H 6.76 H Troponin I 0.056 0.054 NT-Pro-B Natriuret Pep 10/17/17 10/17/17 10/18/17 10:53 10:53 06:15 Creatine Kinase 1307 H CK-MB (CK-2) 7.41 H Troponin I 0.033 0.015 NT-Pro-B Natriuret Pep 2910 H Impressions: Hip/Pelvis X-Ray 10/16/17 16:39 IMPRESSION: SATISFACTORY POSTOPERATIVE RIGHT HIP. Chest X-Ray 10/17/17 00:00 IMPRESSION: Peripheral right lung interstitial changes appear more dense on today's exam. Findings may represent pneumonia in the appropriate clinical setting. Head CT 10/17/17 00:00 IMPRESSION: CHRONIC CHANGES OF ATROPHY AND MICROVASCULAR ISCHEMIA. NO ACUTE PROCESS. EVIDENCE OF ACUTE STROKE: NO. Assessment & Plan - Plan Summary Plan Summary: Patient is 86-year-old gentleman POD #2 from right hip hemiarthroplasty. Continue physical therapy Continue pain control Continue DVT prophylaxis [facility]waiting [facility] facility [facility]
[2017-10-18] MEDS: ENOXAPARIN SODIUM INJ 40 MG/0.4 ML DISP.SYRIN SUBCUT SCH (19:33)
[2017-10-18] MEDS: OXYCODONE-ACETAMINOPHEN 5-325 MG TABLET PO PRN (19:34)
[2017-10-19] MEDS: CEFAZOLIN 2 GM/D5W RTU 2 GM/50 ML RTUPB IV SCH ×4 (00:33→17:07)
[2017-10-19] MEDS: MORPHINE SULFATE 10 MG/ML INJ IV PRN ×3 (01:10→17:00)
[2017-10-19] MEDS: CLINDAMYCIN HCL 150 MG CAPSULE PO SCH ×3 (05:27→22:05)
[2017-10-19] MEDS: OXYCODONE-ACETAMINOPHEN 5-325 MG TABLET PO PRN (05:36)
[2017-10-19 05:42] LABS: HEMATOCRIT 31.2 % (37.9-51.0); HEMOGLOBIN 10.7 g/dL (13.5-17.0); MEAN CORPUSCULAR HEMOGLOBIN 29.3 pg (27.0-33.4); MEAN CORPUSCULAR HGB CONC 34.2 g/dL (32.0-36.0); MEAN CORPUSCULAR VOLUME 86 fl (80-97); PLATELET COUNT 151 10^3/uL (150-450); RED BLOOD COUNT 3.65 10^6/uL (4.35-5.55); RED CELL DISTRIBUTION WIDTH 14.1 % (11.5-14.0)
[2017-10-19 05:57] LABS: ANION GAP 10 (5-19); BLOOD UREA NITROGEN 37 mg/dL (7-20); CALCIUM 7.9 mg/dL (8.4-10.2); CARBON DIOXIDE 26 mmol/L (22-30); CHLORIDE 100 mmol/L (98-107); CREATINE KINASE 1032 U/L (55-170); GLUCOSE 99 mg/dL (75-110); POTASSIUM 4.1 mmol/L (3.6-5.0); SODIUM 136.2 mmol/L (137-145)
[2017-10-19] MEDS: IPRATROPIUM/ALBUTEROL 0.5-2.5 MG/3 ML AMPUL NEB SCH ×2 (07:47→16:15)
--- NOTE | 2017-10-19 08:04 | PDOC PROGRESS REPORT ---
Subjective Progress Note for:: 10/19/17 Subjective:: Patient currently receiving albuterol treatment. No issues overnight. Reason For Visit: STATUS POST RIGHT HIP HEMIARTHROPLASTY Physical Exam Vital Signs: Temp Pulse Resp BP Pulse Ox 36.4 C 89 16 110/74 98 10/18/17 16:34 10/19/17 02:00 10/18/17 23:55 10/18/17 16:34 10/19/17 00:08 Intake & Output 10/18/17 10/19/17 10/20/17 06:59 06:59 06:59 Intake Total 1139 2632 Output Total 1350 1700 Balance -211 932 Weight 102.8 kg 103.9 kg Adult Front & Back Image: 1 - Dressing with bloody drainage. Lower extremity limb lengths are grossly equal. Neurovascular intact distally. Results Laboratory Results: 10/19/17 05:08 10/19/17 05:08 10/19/17 10/19/17 05:08 05:08 WBC 8.0 RBC 3.65 L Hgb 10.7 L Hct 31.2 L MCV 86 MCH 29.3 MCHC 34.2 RDW 14.1 H Plt Count 151 Sodium 136.2 L Potassium 4.1 Chloride 100 Carbon Dioxide 26 Anion Gap 10 BUN 37 H Creatinine 1.19 Est GFR ( Amer) > 60 Est GFR (Non-Af Amer) 58 L Glucose 99 Calcium 7.9 L 10/15/17 10/15/17 10/15/17 03:15 03:15 10:30 Creatine Kinase 122 368 H CK-MB (CK-2) 1.31 Troponin I < 0.012 NT-Pro-B Natriuret Pep 10/15/17 10/15/17 10/15/17 10:30 16:55 16:55 Creatine Kinase CK-MB (CK-2) 2.92 Troponin I 0.018 0.036 NT-Pro-B Natriuret Pep 2240 H 10/16/17 10/16/17 10/16/17 06:12 06:12 17:30 Creatine Kinase 923 H 1244 H CK-MB (CK-2) Troponin I 0.064 NT-Pro-B Natriuret Pep 10/16/17 10/16/17 10/16/17 17:35 23:20 23:20 Creatine Kinase 1271 H CK-MB (CK-2) 7.25 H 6.76 H Troponin I 0.056 0.054 NT-Pro-B Natriuret Pep 10/17/17 10/17/17 10/18/17 10:53 10:53 06:15 Creatine Kinase 1307 H CK-MB (CK-2) 7.41 H Troponin I 0.033 0.015 NT-Pro-B Natriuret Pep 2910 H 10/19/17 10/19/17 05:08 05:08 Creatine Kinase 1032 H CK-MB (CK-2) Troponin I NT-Pro-B Natriuret Pep 1080 H Impressions: Hip/Pelvis X-Ray 10/16/17 16:39 IMPRESSION: SATISFACTORY POSTOPERATIVE RIGHT HIP. Chest X-Ray 10/17/17 00:00 IMPRESSION: Peripheral right lung interstitial changes appear more dense on today's exam. Findings may represent pneumonia in the appropriate clinical setting. Head CT 10/17/17 00:00 IMPRESSION: CHRONIC CHANGES OF ATROPHY AND MICROVASCULAR ISCHEMIA. NO ACUTE PROCESS. EVIDENCE OF ACUTE STROKE: NO. Assessment & Plan - Plan Summary Plan Summary: Patient is a 6-year-old gentleman POD #3 from right hip hemiarthroplasty.. Continue physical therapy Continue pain control Continue DVT prophylaxis Awaiting detention facility placement
--- NOTE | 2017-10-19 08:36 | PROGRESS NOTE E ---
Progress Note NAME: NAE JOYA : 1930 AGE: 86Y DATE: 10/18/2017 ROOM: 534 SUBJECTIVE: The patient denies any chest pain or discomfort. His pain is well-controlled. He denies any chest pain, discomfort, PND, orthopnea, or shortness of breath. There is no palpitation. There is no arrhythmia seen on the monitor. There is no leg edema. There is no TIA or CVA symptoms. OBJECTIVE: GENERAL: On examination, the patient is mildly obese, well-groomed in no acute distress. VITAL SIGNS: He is afebrile with a temperature of 97.7 degrees Fahrenheit, pulse is 89 beats per minute, blood pressure 126/52, respirations are 20 per minute, O2 sats are 99% on 2.5 L nasal cannula. HEAD: Atraumatic, normocephalic. EYES: Pupils are equal, round, regular, reactive to light and accommodation. Extraocular movements are normal. There is no conjunctival pallor. There is no scleral icterus. EARS, NOSE, AND THROAT: Negative. NECK: Supple. There is no JVD. Carotids are equal. There is no bruit. There is no lymphadenopathy. Trachea is central. LUNGS: Show diminished air entry, prolonged expiratory without any rhonchi, rales, or wheezing. On palpation, there is no tenderness. HEART: S1, S2 is heard. There is no S3 gallop. There is no S4 gallop. There is a systolic murmur at the left sternal border at the apex. There is no rub. ABDOMEN: Soft, nontender. There is no hepatosplenomegaly. Bowel sounds are well heard. There are no tender areas or masses. EXTREMITIES: Femorals are diminished. Leg pulses are diminished. There is no pedal edema. There is no DVT or cellulitis. There is no calf tenderness. CENTRAL NERVOUS SYSTEM: The patient is consciously awake, alert, oriented x3, with no focal deficits. PSYCHIATRIC: The patient's judgment and insight are intact. His affect is normal. LABORATORY DATA: The patient's sodium is 134.7, potassium 4, chloride 98, CO2 27. The patient's BUN is 37, creatinine is 1.38. GFR is reduced to 49. His troponin-I is negative at 0.015. His white count is 9.7, hemoglobin is 10.8, hematocrit is 32.4, platelet count is 129,000. IMPRESSION: 1. STATUS POST ACCIDENTAL FALL AND RIGHT FEMORAL NECK FRACTURE STATUS POST SURGICAL STABLE. 2. NO POSTOPERATIVE MYOCARDIAL INFARCTION OR ACUTE CORONARY ARTERY SYNDROME. NO ANGINAL SYMPTOMS. 3. HYPERTENSION. Blood pressure well-controlled. 4. CHRONIC OBSTRUCTIVE PULMONARY DISEASE, STABLE WITHOUT EVIDENCE OF EXACERBATION. 5. MILD HEMODYNAMICALLY INSUFFICIENT AORTIC STENOSIS. 6. MODERATE PULMONARY HYPERTENSION. 7. HISTORY OF DIABETES MELLITUS IN THE PAST. LAST HEMOGLOBIN A1C WAS WITHIN NORMAL LIMITS OF 5.9, WITHOUT THE PATIENT BEING ON ANTIDIABETIC MEDICATION OR ANTIDIABETIC DIET. 8. HISTORY OF LYMPHOMA. STATUS OF LYMPHOMA NOT KNOWN. 9. 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 RECOMMENDATIONS: The patient's cardiac status is stable. Medications have been reviewed. There is no perioperative HI. We will sign off the case. I have discussed with the patient that he will see Oncology as an outpatient. We will discuss with Dr. Joshi and the patient will decide after speaking with Dr. Joshi whether to continue treatment therapy or not for the lymphoma if at all it needs chemotherapy. Forty minutes were spent on this patient with more than 50% of the time spent in direct patient care. Medical decision-making is of moderate complexity. We will sign off the case. Discussed with the other care giving providers on the case. We will discuss with the daughter regarding the patient's renal status. DICTATING PHYSICIAN: PRASHANT SIMMONS M.D. [id number] HERLINDAY#: [id number] ID: [id number] JOB#: [id number] ACCT: [id number] cc: >
[2017-10-19] MEDS: CYCLOBENZAPRINE HCL 10 MG TABLET PO PRN (08:41)
[2017-10-19] MEDS: PRENATAL VITAMIN W DHA CAPSULE PO SCH (10:43)
[2017-10-19] MEDS: DOCUSATE SODIUM 100 MG CAPSULE PO SCH ×2 (10:43→17:01)
[2017-10-19] MEDS: SENNOSIDES/DOCUSATE 8.6-50 MG 1 EACH TABLET PO SCH ×2 (10:43→17:01)
[2017-10-19] MEDS: MINERAL OIL/PETROLATUM,WHITE CREAM 114 GM TP SCH (10:43)
[2017-10-19] MEDS: ENOXAPARIN SODIUM INJ 40 MG/0.4 ML DISP.SYRIN SUBCUT SCH (10:47)
[2017-10-19] MEDS ORDERED: FUROSEMIDE INJ/PF 20 MG/2 ML SDV IV ONE (18:44)
--- NOTE | 2017-10-19 18:48 | PDOC PROGRESS REPORT ---
Subjective Progress Note for:: 10/19/17 Subjective:: The patient is an 86 year old male with a past medical history of lymphoma ( unknown type/staging; declining further treatment), COPD, CHF, debility, and BLE venous stasis dermatitis (chronic) who was admitted 10/15/17 for a Rt hip fracture secondary to mechanical fall. The patient is seen this afternoon on rounds, he is resting in bed complaining of LEFT hip pain. The patient states that he experiences relief with the pain medication but his pain relief only lasts approximately 4 hours. The patient is requesting longer acting pain medication. Upon assessment, crackles can be auscultated bilaterally. S1-S2. Patient has mild peripheral edema in all extremities. Pulses are palpable in the upper extremities and thready in the lower extremities. Anterior dull erythema in both lower extremities, multiple shallow ulcerations, no drainage. Chronic skin changes indicative of venous stasis. Reason For Visit: STATUS POST RIGHT HIP HEMIARTHROPLASTY Physical Exam Vital Signs: Temp Pulse Resp BP Pulse Ox 97.6 F 83 18 110/74 94 10/18/17 16:34 10/19/17 16:15 10/19/17 16:15 10/18/17 16:34 10/19/17 16:15 Intake & Output 10/18/17 10/19/17 10/20/17 06:59 06:59 06:59 Intake Total 1139 2632 404 Output Total 1350 1700 900 Balance -211 932 -496 Weight 102.8 kg 103.9 kg General appearance: PRESENT: no acute distress Head exam: PRESENT: atraumatic Eye exam: PRESENT: conjunctiva pink, PERRLA Mouth exam: PRESENT: moist Teeth exam: PRESENT: poor dentation Neck exam: PRESENT: full ROM Respiratory exam: PRESENT: crackles, symmetrical, unlabored Cardiovascular exam: PRESENT: +S1, +S2 Pulses: PRESENT: normal radial pulses, +1 pedal pulses bilateral Vascular exam: PRESENT: normal capillary refill - Upper extremities, other - Chronic venous stasis ulcers to lower extremities GI/Abdominal exam: PRESENT: normal bowel sounds, soft. ABSENT: tenderness Rectal exam: PRESENT: deferred Extremities exam: PRESENT: joint swelling, pedal edema, +1 edema - Bilateral lower extremities, other - Generalized trace edema. ABSENT: full ROM Musculoskeletal exam: PRESENT: ambulatory - With assistance. ABSENT: full ROM Neurological exam: PRESENT: alert, awake, oriented to person, oriented to place , oriented to time, oriented to situation Psychiatric exam: PRESENT: appropriate affect Skin exam: PRESENT: erythema - Bilateral lower extremities, other - Skin discoloration, multiple shallow ulcerations to bilateral lower extremities Results Laboratory Results: 10/19/17 05:08 10/19/17 05:08 10/19/17 10/19/17 05:08 05:08 WBC 8.0 RBC 3.65 L Hgb 10.7 L Hct 31.2 L MCV 86 MCH 29.3 MCHC 34.2 RDW 14.1 H Plt Count 151 Sodium 136.2 L Potassium 4.1 Chloride 100 Carbon Dioxide 26 Anion Gap 10 BUN 37 H Creatinine 1.19 Est GFR ( Amer) > 60 Est GFR (Non-Af Amer) 58 L Glucose 99 Calcium 7.9 L 10/15/17 10/15/17 10/15/17 03:15 03:15 10:30 Creatine Kinase 122 368 H CK-MB (CK-2) 1.31 Troponin I < 0.012 NT-Pro-B Natriuret Pep 10/15/17 10/15/17 10/15/17 10:30 16:55 16:55 Creatine Kinase CK-MB (CK-2) 2.92 Troponin I 0.018 0.036 NT-Pro-B Natriuret Pep 2240 H 10/16/17 10/16/17 10/16/17 06:12 06:12 17:30 Creatine Kinase 923 H 1244 H CK-MB (CK-2) Troponin I 0.064 NT-Pro-B Natriuret Pep 10/16/17 10/16/17 10/16/17 17:35 23:20 23:20 Creatine Kinase 1271 H CK-MB (CK-2) 7.25 H 6.76 H Troponin I 0.056 0.054 NT-Pro-B Natriuret Pep 10/17/17 10/17/17 10/18/17 10:53 10:53 06:15 Creatine Kinase 1307 H CK-MB (CK-2) 7.41 H Troponin I 0.033 0.015 NT-Pro-B Natriuret Pep 2910 H 10/19/17 10/19/17 05:08 05:08 Creatine Kinase 1032 H CK-MB (CK-2) Troponin I NT-Pro-B Natriuret Pep 1080 H Impressions: Hip/Pelvis X-Ray 10/16/17 16:39 IMPRESSION: SATISFACTORY POSTOPERATIVE RIGHT HIP. Chest X-Ray 10/17/17 00:00 IMPRESSION: Peripheral right lung interstitial changes appear more dense on today's exam. Findings may represent pneumonia in the appropriate clinical setting. Head CT 10/17/17 00:00 IMPRESSION: CHRONIC CHANGES OF ATROPHY AND MICROVASCULAR ISCHEMIA. NO ACUTE PROCESS. EVIDENCE OF ACUTE STROKE: NO. Status: Imported from PACS Assessment & Plan - Diagnosis (1) Fracture of head of right femur Qualifiers: Encounter type: initial encounter Fracture type: closed Qualified Code(s) : S72.051A - Unspecified fracture of head of right femur, initial encounter for closed fracture Is this a current diagnosis for this admission?: Yes Plan: Secondary to mechanical fall Now POD#3 right hip hemiarthroplasty Primary plan per orthopedics Cardiology consulted and provided cardiac clearance Analgesics and antiemetics as needed Lovenox for DVT prophylaxis per orthopedic recommendations Currently awaiting placement at [facility] (2) Cellulitis Qualifiers: Site of cellulitis: extremity Site of cellulitis of extremity: lower extremity Laterality: right Qualified Code(s): L03.115 - Cellulitis of right lower limb Is this a current diagnosis for this admission?: Yes Plan: Continues to improve, secondary to chronic venous stasis and venous ulceration Bilateral lower extremities are edematous, anterior dull erythema, multiple shallow ulcerations, no drainage Continue p.o. clindamycin Patient will benefit from podiatry and/or wound clinic follow-up as outpatient (3) Debility Is this a current diagnosis for this admission?: Yes Plan: Anticipate for acute rehabilitation upon discharge Discharge planning aware Currently awaiting placement at [facility] (4) Congestive heart failure Qualifiers: Heart failure type: diastolic Heart failure chronicity: chronic Qualified Code(s): I50.32 - Chronic diastolic (congestive) heart failure Is this a current diagnosis for this admission?: Yes Plan: Echocardiogram reveals preserved LVEF, mild diastolic dysfunction, trace MR, mild TR, moderate pulmonary hypertension ProBNP improving 2240->1080 Troponins peaked at 0.064, no longer trending Noted to have crackles in bilateral lower lobes and trace generalized edema IVF discontinued Administer single dose of 20 mg IV Lasix Daily weights and strict I's and O's (5) Fall Qualifiers: Encounter type: initial encounter Qualified Code(s): W19.XXXA - Unspecified fall, initial encounter Is this a current diagnosis for this admission?: Yes Plan: Mechanical fall at home Fall precautions are in place Remaining plan as above (6) Kidney insufficiency Is this a current diagnosis for this admission?: Yes Plan: Improved Creatinine peaked at 1.4, down to 1.19 today Avoid nephrotoxic medications Le catheter for strict I's and O's Monitor daily chemistries (7) Rhabdomyolysis Qualifiers: Rhabdomyolysis type: traumatic Is this a current diagnosis for this admission?: Yes Plan: Secondary to fall resulting in right hip fracture CK increasing 116-->1032 today Le catheter for strict I's and O's Encourage p.o. fluids Continue to trend Early mobility, encourage cooperation with physical therapy (8) Left arm weakness Is this a current diagnosis for this admission?: Yes Plan: Resolved. Likely secondary to generalized debility & sedation Head CT was negative for acute CVA Laboratory evaluation benign PT OT consulted recommend acute rehab - Time Time Spent with patient: 15-24 minutes Medications reviewed and adjusted accordingly: Yes Anticipated discharge: Acute Rehab Within: within 24 hours - Inpatient Certification Based on my medical assessment, after consideration of the patient's comorbidities, presenting symptoms, or acuity I expect that the services needed warrant INPATIENT care.: Yes I certify that my determination is in accordance with my understanding of Medicare's requirements for reasonable and necessary INPATIENT services [42 CFR 412.3e].: Yes Medical Necessity: Risk of Complication if Not Cared For in Hospital - Plan Summary Plan Summary: Adjust pain medication regimen. Diuresis today with IV Lasix.
[2017-10-19] MEDS: OXYCODONE HCL SR 10 MG TABLET PO SCH (18:53)
[2017-10-20] MEDS: IPRATROPIUM/ALBUTEROL 0.5-2.5 MG/3 ML AMPUL NEB SCH ×4 (00:52→23:38)
[2017-10-20] MEDS: MORPHINE SULFATE 10 MG/ML INJ IV PRN ×3 (01:01→23:54)
[2017-10-20] MEDS: CLINDAMYCIN HCL 150 MG CAPSULE PO SCH ×3 (05:47→22:25)
[2017-10-20] MEDS: OXYCODONE HCL SR 10 MG TABLET PO SCH ×2 (09:59→22:25)
[2017-10-20] MEDS: SENNOSIDES/DOCUSATE 8.6-50 MG 1 EACH TABLET PO SCH ×2 (10:00→17:43)
[2017-10-20] MEDS: MAG HYDROX/AL HYDROX/SIMETH SUSP 30 ML UDCUP PO PRN (10:00)
[2017-10-20] MEDS: MINERAL OIL/PETROLATUM,WHITE CREAM 114 GM TP SCH (10:01)
[2017-10-20] MEDS ORDERED: FUROSEMIDE INJ/PF 20 MG/2 ML SDV IV ONE (10:01)
[2017-10-20] MEDS: POLYETHYLENE GLYCOL 3350 POWDER 17 GM/1 PACKET PO SCH (10:01)
[2017-10-20] MEDS: ENOXAPARIN SODIUM INJ 40 MG/0.4 ML DISP.SYRIN SUBCUT SCH (10:01)
[2017-10-20] MEDS: PRENATAL VITAMIN W DHA CAPSULE PO SCH (10:01)
[2017-10-20] MEDS ORDERED: FUROSEMIDE INJ/PF 40 MG/4 ML SDV IV ONE ×2 (11:00→14:30)
--- NOTE | 2017-10-20 17:02 | PDOC PROGRESS REPORT ---
Subjective Progress Note for:: 10/20/17 Subjective:: The patient is an 86 year old male with a past medical history of lymphoma ( unknown type/staging; declining further treatment), COPD, CHF, debility, and BLE venous stasis dermatitis (chronic) who was admitted 10/15/17 for a Rt hip fracture secondary to mechanical fall. The patient is seen this afternoon on rounds, he is resting in bed complaining of LEFT leg cramping and constipation. The patient states he has not had the opportunity to work with PT today. Upon assessment, faint crackles can be auscultated bilaterally. S1-S2. Patient has mild peripheral edema in all extremities. Pulses are palpable in the upper extremities and lower extremities. Anterior dull erythema in both lower extremities, multiple shallow ulcerations, no drainage. Chronic skin changes indicative of venous stasis. Plan to continue daily diuresis as patient is showing evidence of volume overload. Added daily miralax to bowel regimen. Daily PT/OT. Not medically ready for transfer to acute rehab. Discharge planning aware. Reason For Visit: STATUS POST RIGHT HIP HEMIARTHROPLASTY Physical Exam Vital Signs: Temp Pulse Resp BP Pulse Ox 97.4 F 81 16 127/67 H 100 10/20/17 15:42 10/20/17 16:04 10/20/17 16:04 10/20/17 15:42 10/20/17 16:04 Intake & Output 10/19/17 10/20/17 10/21/17 06:59 06:59 06:59 Intake Total 2632 522 Output Total 1700 1600 Balance 932 -1078 Weight 103.9 kg 99.3 kg General appearance: PRESENT: morbidly obese Head exam: PRESENT: atraumatic Eye exam: PRESENT: conjunctiva pink, PERRLA Teeth exam: PRESENT: poor dentation Neck exam: PRESENT: full ROM Respiratory exam: PRESENT: crackles, symmetrical, unlabored Cardiovascular exam: PRESENT: +S1, +S2 Pulses: PRESENT: normal radial pulses, normal dorsalis pedis pul GI/Abdominal exam: PRESENT: distended, normal bowel sounds, soft. ABSENT: tenderness Rectal exam: PRESENT: deferred Extremities exam: PRESENT: pedal edema, +1 edema - b/l lower extremities, other - generalized trace edema. ABSENT: full ROM Musculoskeletal exam: PRESENT: ambulatory - with assistance. ABSENT: full ROM Neurological exam: PRESENT: alert, awake, oriented to person, oriented to place , oriented to time, oriented to situation Psychiatric exam: PRESENT: appropriate affect Skin exam: PRESENT: dry, erythema - bilateral lower extremities Results Laboratory Results: 10/19/17 05:08 10/19/17 05:08 10/15/17 10/15/17 10/15/17 03:15 03:15 10:30 Creatine Kinase 122 368 H CK-MB (CK-2) 1.31 Troponin I < 0.012 NT-Pro-B Natriuret Pep 10/15/17 10/15/17 10/15/17 10:30 16:55 16:55 Creatine Kinase CK-MB (CK-2) 2.92 Troponin I 0.018 0.036 NT-Pro-B Natriuret Pep 2240 H 10/16/17 10/16/17 10/16/17 06:12 06:12 17:30 Creatine Kinase 923 H 1244 H CK-MB (CK-2) Troponin I 0.064 NT-Pro-B Natriuret Pep 10/16/17 10/16/17 10/16/17 17:35 23:20 23:20 Creatine Kinase 1271 H CK-MB (CK-2) 7.25 H 6.76 H Troponin I 0.056 0.054 NT-Pro-B Natriuret Pep 10/17/17 10/17/17 10/18/17 10:53 10:53 06:15 Creatine Kinase 1307 H CK-MB (CK-2) 7.41 H Troponin I 0.033 0.015 NT-Pro-B Natriuret Pep 2910 H 10/19/17 10/19/17 05:08 05:08 Creatine Kinase 1032 H CK-MB (CK-2) Troponin I NT-Pro-B Natriuret Pep 1080 H Impressions: Hip/Pelvis X-Ray 10/16/17 16:39 IMPRESSION: SATISFACTORY POSTOPERATIVE RIGHT HIP. Chest X-Ray 10/17/17 00:00 IMPRESSION: Peripheral right lung interstitial changes appear more dense on today's exam. Findings may represent pneumonia in the appropriate clinical setting. Head CT 10/17/17 00:00 IMPRESSION: CHRONIC CHANGES OF ATROPHY AND MICROVASCULAR ISCHEMIA. NO ACUTE PROCESS. EVIDENCE OF ACUTE STROKE: NO. Status: Imported from PACS Assessment & Plan - Diagnosis (1) Fracture of head of right femur Qualifiers: Encounter type: initial encounter Fracture type: closed Qualified Code(s) : S72.051A - Unspecified fracture of head of right femur, initial encounter for closed fracture Is this a current diagnosis for this admission?: Yes Plan: Secondary to mechanical fall Now POD#4 right hip hemiarthroplasty Primary plan per orthopedics Cardiology consulted and provided cardiac clearance Analgesics and antiemetics as needed Lovenox for DVT prophylaxis per orthopedic recommendations Currently awaiting placement at [facility] (2) Cellulitis Qualifiers: Site of cellulitis: extremity Site of cellulitis of extremity: lower extremity Laterality: right Qualified Code(s): L03.115 - Cellulitis of right lower limb Is this a current diagnosis for this admission?: Yes Plan: Continues to improve, secondary to chronic venous stasis and venous ulceration Bilateral lower extremities are edematous, anterior dull erythema, multiple shallow ulcerations, no drainage Continue p.o. clindamycin Patient will benefit from podiatry and/or wound clinic follow-up as outpatient (3) Debility Is this a current diagnosis for this admission?: Yes Plan: Daily PT/OT Anticipate for acute rehabilitation upon discharge Discharge planning aware Currently awaiting placement at [facility] (4) Congestive heart failure Qualifiers: Heart failure type: diastolic Heart failure chronicity: chronic Qualified Code(s): I50.32 - Chronic diastolic (congestive) heart failure Is this a current diagnosis for this admission?: Yes Plan: Echocardiogram reveals preserved LVEF, mild diastolic dysfunction, trace MR, mild TR, moderate pulmonary hypertension ProBNP improving 2240->1080 Troponins peaked at 0.064, no longer trending Noted to have crackles in bilateral lower lobes and trace generalized edema IVF discontinued Continue daily IV lasix, will have to transition to daily PO lasix prior to acute rehab Daily weights and strict I's and O's (5) Fall Qualifiers: Encounter type: initial encounter Qualified Code(s): W19.XXXA - Unspecified fall, initial encounter Is this a current diagnosis for this admission?: Yes Plan: Mechanical fall at home Fall precautions are in place Remaining plan as above (6) Kidney insufficiency Is this a current diagnosis for this admission?: Yes Plan: Improved Creatinine peaked at 1.4, down to 1.19 Avoid nephrotoxic medications Le catheter for strict I's and O's Monitor daily chemistries (7) Rhabdomyolysis Qualifiers: Rhabdomyolysis type: traumatic Is this a current diagnosis for this admission?: Yes Plan: Secondary to fall resulting in right hip fracture CK increasing 116-->1032 yesterday Check CK in AM Le catheter for strict I's and O's Encourage p.o. fluids Continue to trend Early mobility, encourage cooperation with physical therapy (8) Left arm weakness Is this a current diagnosis for this admission?: Yes Plan: Resolved. Likely secondary to generalized debility & sedation Head CT was negative for acute CVA Laboratory evaluation benign PT OT consulted recommend acute rehab (9) Constipation Qualifiers: Constipation type: drug induced constipation Qualified Code(s): K59.03 - Drug induced constipation Is this a current diagnosis for this admission?: Yes Plan: Secondary to immobility and daily narcotic use Patient states he has not had a bowel movement in 5 + days Increase senna from 1 tablet daily to 2 tablets twice daily Initiate daily MiraLAX Encourage nursing staff to administer as needed milk of magnesia - Time Time Spent with patient: 15-24 minutes Medications reviewed and adjusted accordingly: Yes Anticipated discharge: Acute Rehab Within: within 48 hours - Inpatient Certification Based on my medical assessment, after consideration of the patient's comorbidities, presenting symptoms, or acuity I expect that the services needed warrant INPATIENT care.: Yes I certify that my determination is in accordance with my understanding of Medicare's requirements for reasonable and necessary INPATIENT services [42 CFR 412.3e].: Yes Medical Necessity: Risk of Complication if Not Cared For in Hospital
--- NOTE | 2017-10-20 18:09 | PDOC PROGRESS REPORT ---
Subjective Progress Note for:: 10/20/17 Subjective:: Patient is sleeping in bed. Doing very little with therapy aside of being stood up on the side of the bed. Has not had a bowel movement. Reason For Visit: STATUS POST RIGHT HIP HEMIARTHROPLASTY Physical Exam Vital Signs: Temp Pulse Resp BP Pulse Ox 36.3 C 81 16 127/67 H 100 10/20/17 15:42 10/20/17 16:04 10/20/17 16:04 10/20/17 15:42 10/20/17 16:04 Intake & Output 10/19/17 10/20/17 10/21/17 06:59 06:59 06:59 Intake Total 2632 522 Output Total 1700 1600 Balance 932 -1078 Weight 103.9 kg 99.3 kg Adult Front & Back Image: 1 - Incision change with mild bloody drainage. Limb lengths are grossly equal distally. Soft calf with negative Steffany Results Laboratory Results: 10/19/17 05:08 10/19/17 05:08 10/15/17 10/15/17 10/15/17 03:15 03:15 10:30 Creatine Kinase 122 368 H CK-MB (CK-2) 1.31 Troponin I < 0.012 NT-Pro-B Natriuret Pep 10/15/17 10/15/17 10/15/17 10:30 16:55 16:55 Creatine Kinase CK-MB (CK-2) 2.92 Troponin I 0.018 0.036 NT-Pro-B Natriuret Pep 2240 H 10/16/17 10/16/17 10/16/17 06:12 06:12 17:30 Creatine Kinase 923 H 1244 H CK-MB (CK-2) Troponin I 0.064 NT-Pro-B Natriuret Pep 10/16/17 10/16/17 10/16/17 17:35 23:20 23:20 Creatine Kinase 1271 H CK-MB (CK-2) 7.25 H 6.76 H Troponin I 0.056 0.054 NT-Pro-B Natriuret Pep 10/17/17 10/17/17 10/18/17 10:53 10:53 06:15 Creatine Kinase 1307 H CK-MB (CK-2) 7.41 H Troponin I 0.033 0.015 NT-Pro-B Natriuret Pep 2910 H 10/19/17 10/19/17 05:08 05:08 Creatine Kinase 1032 H CK-MB (CK-2) Troponin I NT-Pro-B Natriuret Pep 1080 H Impressions: Hip/Pelvis X-Ray 10/16/17 16:39 IMPRESSION: SATISFACTORY POSTOPERATIVE RIGHT HIP. Chest X-Ray 10/17/17 00:00 IMPRESSION: Peripheral right lung interstitial changes appear more dense on today's exam. Findings may represent pneumonia in the appropriate clinical setting. Head CT 10/17/17 00:00 IMPRESSION: CHRONIC CHANGES OF ATROPHY AND MICROVASCULAR ISCHEMIA. NO ACUTE PROCESS. EVIDENCE OF ACUTE STROKE: NO. Assessment & Plan - Plan Summary Plan Summary: Patient is 86-year-old gentleman POD #3 from right hip hemiarthroplasty. Patient has not had a bowel movement therefore they are increasing his medications stimulates 1. Once he has a bowel movement and the patient will be able to be transferred to a rehab facility. Continue physical therapy Continue pain control Continue DVT prophylaxis Awaiting [facility] facility placement
[2017-10-20] MEDS: CYCLOBENZAPRINE HCL 10 MG TABLET PO PRN (22:25)
[2017-10-21] MEDS: CLINDAMYCIN HCL 150 MG CAPSULE PO SCH ×2 (06:28→17:44)
[2017-10-21] MEDS: MAG HYDROX/AL HYDROX/SIMETH SUSP 30 ML UDCUP PO PRN (07:18)
[2017-10-21] MEDS: IPRATROPIUM/ALBUTEROL 0.5-2.5 MG/3 ML AMPUL NEB SCH ×2 (08:05→15:50)
--- NOTE | 2017-10-21 09:14 | RADIOLOGY REPORT (SQ) ---
EXAM DESCRIPTION: KUB/ABDOMEN (SINGLE VIEW) COMPLETED DATE/TIME: 10/21/2017 9:03 am REASON FOR STUDY: Constipation and abdominal distension COMPARISON: None. NUMBER OF VIEWS: One view. TECHNIQUE: Supine radiographic image of the abdomen acquired. LIMITATIONS: None. FINDINGS: BOWEL GAS PATTERN: Abundant fecal material in the ascending and transverse colon. Mildly dilated loops of small bowel and mild gastric distention. CALCIFICATIONS: No suspicious calcifications. SOFT TISSUES: No gross mass or suggestion of organomegaly. HARDWARE: Skin celeste right lower quadrant. Le catheter. Right hip arthroplasty. BONES: No bone lesions or fracture. OTHER: No other significant finding. IMPRESSION: Ileus and fecal retention. Reading location - IP/workstation name: [email or web address]
[2017-10-21] MEDS: MORPHINE SULFATE 10 MG/ML INJ IV PRN ×2 (09:30→22:08)
[2017-10-21] MEDS: POLYETHYLENE GLYCOL 3350 POWDER 17 GM/1 PACKET PO SCH (09:30)
[2017-10-21] MEDS: SENNOSIDES/DOCUSATE 8.6-50 MG 1 EACH TABLET PO SCH ×2 (09:31→19:39)
[2017-10-21] MEDS: MINERAL OIL/PETROLATUM,WHITE CREAM 114 GM TP SCH (09:31)
[2017-10-21] MEDS: PRENATAL VITAMIN W DHA CAPSULE PO SCH (09:31)
[2017-10-21] MEDS: OXYCODONE HCL SR 10 MG TABLET PO SCH ×3 (09:31→22:08)
[2017-10-21] MEDS: ENOXAPARIN SODIUM INJ 40 MG/0.4 ML DISP.SYRIN SUBCUT SCH (09:32)
[2017-10-21] MEDS ORDERED: PROMETHAZINE HCL INJ 25 MG/1 ML VIAL IV PRN (09:50)
[2017-10-21] MEDS ORDERED: ONDANSETRON HCL INJ/PF 4 MG/2 ML SDV IV PRN (09:51)
[2017-10-21] MEDS ORDERED: GLUCAGON,HUMAN RECOMB 1 MG INJ SUBCUT PRN (09:52)
[2017-10-21] MEDS ORDERED: DEXTROSE 40% GEL 15 GM TUBE PO PRN ×2 (09:52)
[2017-10-21] MEDS ORDERED: DEXTROSE 50%-WATER 25 GM/50 ML DISP.SYRIN IV PRN ×2 (09:52)
[2017-10-21] MEDS ORDERED: PROMETHAZINE HCL INJ 25 MG/1 ML VIAL ONE (10:07)
[2017-10-21 10:48] LABS: HEMATOCRIT 33.5 % (37.9-51.0); HEMOGLOBIN 11.5 g/dL (13.5-17.0); MEAN CORPUSCULAR HEMOGLOBIN 29.3 pg (27.0-33.4); MEAN CORPUSCULAR HGB CONC 34.3 g/dL (32.0-36.0); MEAN CORPUSCULAR VOLUME 86 fl (80-97); PLATELET COUNT 248 10^3/uL (150-450); RED BLOOD COUNT 3.91 10^6/uL (4.35-5.55); RED CELL DISTRIBUTION WIDTH 14.4 % (11.5-14.0); WHITE BLOOD COUNT 9.5 10^3/uL (4.0-10.5)
[2017-10-21 10:56] LABS: ANION GAP 12 (5-19); BLOOD UREA NITROGEN 42 mg/dL (7-20); CALCIUM 8.4 mg/dL (8.4-10.2); CARBON DIOXIDE 30 mmol/L (22-30); CHLORIDE 94 mmol/L (98-107); GLUCOSE 103 mg/dL (75-110); PHOSPHORUS 4.9 mg/dL (2.5-4.5); POTASSIUM 4.5 mmol/L (3.6-5.0); SODIUM 135.6 mmol/L (137-145)
[2017-10-21] MEDS ORDERED: LACTULOSE SYRUP 20 GM/30 ML UDCUP PO SCH (12:00)
--- NOTE | 2017-10-21 14:30 | PDOC PROGRESS REPORT ---
Subjective Progress Note for:: 10/21/17 Subjective:: Patient has an ileus. There are plan to give him an enema and potentially putting an NG tube. Reason For Visit: STATUS POST RIGHT HIP HEMIARTHROPLASTY Physical Exam Vital Signs: Temp Pulse Resp BP Pulse Ox 36.9 C 88 17 126/68 H 91 L 10/21/17 12:58 10/21/17 12:58 10/21/17 12:58 10/21/17 12:58 10/21/17 12:58 Intake & Output 10/20/17 10/21/17 10/22/17 06:59 06:59 06:59 Intake Total 522 118 Output Total 1600 300 Balance -1078 -182 Weight 99.3 kg 98.7 kg Adult Front & Back Image: 1 - Dressing change with only serosanguineous drainage. Limb lengths are grossly equal. Soft calf negative Homans sign, neurovascular intact distally. Results Laboratory Results: 10/21/17 09:53 10/21/17 09:53 10/21/17 10/21/17 09:53 09:53 WBC 9.5 RBC 3.91 L Hgb 11.5 L Hct 33.5 L MCV 86 MCH 29.3 MCHC 34.3 RDW 14.4 H Plt Count 248 Sodium 135.6 L Potassium 4.5 Chloride 94 L Carbon Dioxide 30 Anion Gap 12 BUN 42 H Creatinine 1.11 Est GFR ( Amer) > 60 Est GFR (Non-Af Amer) > 60 Glucose 103 Calcium 8.4 Phosphorus 4.9 H Magnesium 2.2 10/15/17 10/15/17 10/15/17 03:15 03:15 10:30 Creatine Kinase 122 368 H CK-MB (CK-2) 1.31 Troponin I < 0.012 NT-Pro-B Natriuret Pep 10/15/17 10/15/17 10/15/17 10:30 16:55 16:55 Creatine Kinase CK-MB (CK-2) 2.92 Troponin I 0.018 0.036 NT-Pro-B Natriuret Pep 2240 H 08/10/16/17 10/16/17 06:12 06:12 17:30 Creatine Kinase 923 H 1244 H CK-MB (CK-2) Troponin I 0.064 NT-Pro-B Natriuret Pep 10/16/17 10/16/17 10/16/17 17:35 23:20 23:20 Creatine Kinase 1271 H CK-MB (CK-2) 7.25 H 6.76 H Troponin I 0.056 0.054 NT-Pro-B Natriuret Pep 10/17/17 10/17/17 10/18/17 10:53 10:53 06:15 Creatine Kinase 1307 H CK-MB (CK-2) 7.41 H Troponin I 0.033 0.015 NT-Pro-B Natriuret Pep 2910 H 10/19/17 10/19/17 10/21/17 05:08 05:08 09:53 Creatine Kinase 1032 H CK-MB (CK-2) Troponin I NT-Pro-B Natriuret Pep 1080 H 594 H Impressions: Hip/Pelvis X-Ray 10/16/17 16:39 IMPRESSION: SATISFACTORY POSTOPERATIVE RIGHT HIP. Chest X-Ray 10/17/17 00:00 IMPRESSION: Peripheral right lung interstitial changes appear more dense on today's exam. Findings may represent pneumonia in the appropriate clinical setting. Head CT 10/17/17 00:00 IMPRESSION: CHRONIC CHANGES OF ATROPHY AND MICROVASCULAR ISCHEMIA. NO ACUTE PROCESS. EVIDENCE OF ACUTE STROKE: NO. KUB X-Ray 10/21/17 00:00 IMPRESSION: Ileus and fecal retention. Assessment & Plan - Plan Summary Plan Summary: Patient is status post right hip hemiarthroplasty. Developed a postoperative ileus. Probably due to narcotic use. At this point patient on our standpoint just needs to do physical therapy and have DVT prophylaxis. Will allow the primary team to address his other medical issues including his postoperative ileus.
--- NOTE | 2017-10-21 15:04 | RADIOLOGY REPORT (SQ) ---
EXAM DESCRIPTION: KUB/ABDOMEN (SINGLE VIEW) COMPLETED DATE/TIME: 10/21/2017 2:50 pm REASON FOR STUDY: NG tube placement COMPARISON: Earlier the same day. NUMBER OF VIEWS: One view. TECHNIQUE: Supine radiographic image of the abdomen acquired. LIMITATIONS: None. FINDINGS: Nasogastric tube coiled upon itself in the distal esophagus with tip pointing cephalad. O therwise no change. IMPRESSION: Nasogastric tube position as described. Recommend repositioning. Reading location - IP/workstation name: [email or web address]
--- NOTE | 2017-10-21 16:46 | RADIOLOGY REPORT (SQ) ---
EXAM DESCRIPTION: KUB/ABDOMEN (SINGLE VIEW) COMPLETED DATE/TIME: 10/21/2017 4:29 pm REASON FOR STUDY: NG tube placement COMPARISON: Earlier the same day. NUMBER OF VIEWS: One view. TECHNIQUE: Supine radiographic image of the abdomen acquired. LIMITATIONS: None. FINDINGS: Nasogastric tube coiled upon itself in the distal esophagus as before. Otherwise no toney e. IMPRESSION: Nasogastric tube position as described. Recommend repositioning. Reading location - IP/workstation name: [email or web address]
--- NOTE | 2017-10-21 17:27 | PDOC PROGRESS REPORT ---
Subjective Progress Note for:: 10/21/17 Subjective:: The patient is an 86 year old male with a past medical history of lymphoma ( unknown type/staging; declining further treatment), COPD, CHF, debility, and BLE venous stasis dermatitis (chronic) who was admitted 10/15/17 for a Rt hip fracture secondary to mechanical fall. The patient is seen this afternoon on rounds, he is resting in bed complaining of constipation, nausea and abdominal distention. The patient denies passing flatus. Upon assessment, abdomen appears significantly more distended than in days past. (+) Bowel sounds but they are hypoactive. Diffuse mild TTP. Pulses are palpable in the upper extremities and lower extremities. Anterior dull erythema in both lower extremities, multiple shallow ulcerations, no drainage. Chronic skin changes indicative of venous stasis. KUB reveals ileus and retained fecal matter. Plan for NG placement to decompress the bowel and soapsuds enema. Continue daily diuresis as patient is showing evidence of volume overload. Daily PT/OT. Not medically ready for transfer to acute rehab. Discharge planning aware. Reason For Visit: STATUS POST RIGHT HIP HEMIARTHROPLASTY Physical Exam Vital Signs: Temp Pulse Resp BP Pulse Ox 98.4 F 86 16 126/68 H 91 L 10/21/17 12:58 10/21/17 15:50 10/21/17 15:50 10/21/17 12:58 10/21/17 12:58 Intake & Output 10/20/17 10/21/17 10/22/17 06:59 06:59 06:59 Intake Total 522 118 Output Total 1600 300 Balance -1078 -182 Weight 99.3 kg 98.7 kg General appearance: PRESENT: morbidly obese Head exam: PRESENT: atraumatic Eye exam: PRESENT: conjunctiva pink, PERRLA Mouth exam: PRESENT: moist, tongue midline Teeth exam: PRESENT: poor dentation Neck exam: PRESENT: full ROM. ABSENT: JVD Respiratory exam: PRESENT: crackles - L>R, symmetrical, unlabored Cardiovascular exam: PRESENT: +S1, +S2 Pulses: PRESENT: normal radial pulses, +1 pedal pulses bilateral Vascular exam: PRESENT: normal capillary refill GI/Abdominal exam: PRESENT: distended, hypoactive bowel sounds, tenderness, other - NO FLATUS Rectal exam: PRESENT: deferred Extremities exam: ABSENT: full ROM Musculoskeletal exam: PRESENT: ambulatory - WITH ASSISTANCE. ABSENT: full ROM Neurological exam: PRESENT: alert, awake, oriented to person, oriented to place , oriented to time, oriented to situation Psychiatric exam: PRESENT: appropriate affect Skin exam: PRESENT: dry, intact, warm, other - VENOUS STASIS ULCERS TO LOWER EXTREMITIES Results Laboratory Results: 10/21/17 09:53 10/21/17 09:53 10/21/17 10/21/17 09:53 09:53 WBC 9.5 RBC 3.91 L Hgb 11.5 L Hct 33.5 L MCV 86 MCH 29.3 MCHC 34.3 RDW 14.4 H Plt Count 248 Sodium 135.6 L Potassium 4.5 Chloride 94 L Carbon Dioxide 30 Anion Gap 12 BUN 42 H Creatinine 1.11 Est GFR ( Amer) > 60 Est GFR (Non-Af Amer) > 60 Glucose 103 Calcium 8.4 Phosphorus 4.9 H Magnesium 2.2 10/15/17 10/15/17 10/15/17 03:15 03:15 10:30 Creatine Kinase 122 368 H CK-MB (CK-2) 1.31 Troponin I < 0.012 NT-Pro-B Natriuret Pep 10/15/17 10/15/17 10/15/17 10:30 16:55 16:55 Creatine Kinase CK-MB (CK-2) 2.92 Troponin I 0.018 0.036 NT-Pro-B Natriuret Pep 2240 H 10/16/17 10/16/17 10/16/17 06:12 06:12 17:30 Creatine Kinase 923 H 1244 H CK-MB (CK-2) Troponin I 0.064 NT-Pro-B Natriuret Pep 10/16/17 10/16/17 10/16/17 17:35 23:20 23:20 Creatine Kinase 1271 H CK-MB (CK-2) 7.25 H 6.76 H Troponin I 0.056 0.054 NT-Pro-B Natriuret Pep 10/17/17 10/17/17 10/18/17 10:53 10:53 06:15 Creatine Kinase 1307 H CK-MB (CK-2) 7.41 H Troponin I 0.033 0.015 NT-Pro-B Natriuret Pep 2910 H 10/19/17 10/19/17 10/21/17 05:08 05:08 09:53 Creatine Kinase 1032 H CK-MB (CK-2) Troponin I NT-Pro-B Natriuret Pep 1080 H 594 H Impressions: Hip/Pelvis X-Ray 10/16/17 16:39 IMPRESSION: SATISFACTORY POSTOPERATIVE RIGHT HIP. Chest X-Ray 10/17/17 00:00 IMPRESSION: Peripheral right lung interstitial changes appear more dense on today's exam. Findings may represent pneumonia in the appropriate clinical setting. Head CT 10/17/17 00:00 IMPRESSION: CHRONIC CHANGES OF ATROPHY AND MICROVASCULAR ISCHEMIA. NO ACUTE PROCESS. EVIDENCE OF ACUTE STROKE: NO. KUB X-Ray 10/21/17 00:00 IMPRESSION: Nasogastric tube position as described. Recommend repositioning. Status: Imported from PACS Assessment & Plan - Diagnosis (1) Fracture of head of right femur Qualifiers: Encounter type: initial encounter Fracture type: closed Qualified Code(s) : S72.051A - Unspecified fracture of head of right femur, initial encounter for closed fracture Is this a current diagnosis for this admission?: Yes Plan: Secondary to mechanical fall Now POST-OP right hip hemiarthroplasty Primary plan per orthopedics Cardiology consulted and provided cardiac clearance Analgesics and antiemetics as needed Lovenox for DVT prophylaxis per orthopedic recommendations Currently awaiting placement at [facility] (2) Cellulitis Qualifiers: Site of cellulitis: extremity Site of cellulitis of extremity: lower extremity Laterality: right Qualified Code(s): L03.115 - Cellulitis of right lower limb Is this a current diagnosis for this admission?: Yes Plan: Continues to improve, secondary to chronic venous stasis and venous ulceration Bilateral lower extremities are edematous, anterior dull erythema, multiple shallow ulcerations, no drainage Continue clindamycin Patient will benefit from podiatry and/or wound clinic follow-up as outpatient (3) Debility Is this a current diagnosis for this admission?: Yes Plan: Daily PT/OT Anticipate for acute rehabilitation upon discharge Discharge planning aware Currently awaiting placement at [facility] (4) Congestive heart failure Qualifiers: Heart failure type: diastolic Heart failure chronicity: chronic Qualified Code(s): I50.32 - Chronic diastolic (congestive) heart failure Is this a current diagnosis for this admission?: Yes Plan: Echocardiogram reveals preserved LVEF, mild diastolic dysfunction, trace MR, mild TR, moderate pulmonary hypertension ProBNP improving 2240->1080->594 Troponins peaked at 0.064, no longer trending Noted to have crackles in bilateral lower lobes and trace generalized edema, improving since starting daily diuresis IVF discontinued Continue daily IV lasix, will have to transition to daily PO lasix prior to acute rehab Daily weights and strict I's and O's (5) Fall Qualifiers: Encounter type: initial encounter Qualified Code(s): W19.XXXA - Unspecified fall, initial encounter Is this a current diagnosis for this admission?: Yes Plan: Mechanical fall at home Fall precautions are in place Remaining plan as above (6) Kidney insufficiency Is this a current diagnosis for this admission?: Yes Plan: Improved Creatinine peaked at 1.4, down to 1.11 Avoid nephrotoxic medications Le catheter for strict I's and O's Monitor daily chemistries (7) Rhabdomyolysis Qualifiers: Rhabdomyolysis type: traumatic Is this a current diagnosis for this admission?: Yes Plan: Secondary to fall resulting in right hip fracture CK increasing 116-->1032 yesterday Check CK in AM Le catheter for strict I's and O's Encourage p.o. fluids Continue to trend Early mobility, encourage cooperation with physical therapy (8) Left arm weakness Is this a current diagnosis for this admission?: Yes Plan: Resolved. Likely secondary to generalized debility & sedation Head CT was negative for acute CVA Laboratory evaluation benign PT OT consulted recommend acute rehab (9) Adynamic ileus Is this a current diagnosis for this admission?: Yes Plan: Secondary to constipation stemming from immobility and daily narcotic use Patient states he has not had a bowel movement in 6 + days Senna BID, daily MiraLAX, PRN milk of magnesia Initiate daily Lactulose Plan for NG tube for bowel decompression and soap suds enema - Time Time Spent with patient: 15-24 minutes Medications reviewed and adjusted accordingly: Yes Anticipated discharge: SNF - Inpatient Certification Based on my medical assessment, after consideration of the patient's comorbidities, presenting symptoms, or acuity I expect that the services needed warrant INPATIENT care.: Yes I certify that my determination is in accordance with my understanding of Medicare's requirements for reasonable and necessary INPATIENT services [42 CFR 412.3e].: Yes Medical Necessity: Risk of Complication if Not Cared For in Hospital - Plan Summary Plan Summary: NG TUBE. ENEMA. CONTINUE ANTIBIOTICS. CONTINUE DAILY DIURESIS.
--- NOTE | 2017-10-21 18:15 | RADIOLOGY REPORT (SQ) ---
EXAM DESCRIPTION: KUB/ABDOMEN (SINGLE VIEW) COMPLETED DATE/TIME: 10/21/2017 6:06 pm REASON FOR STUDY: NG tube insertion COMPARISON: 10/21/2017 NUMBER OF VIEWS: One view. TECHNIQUE: Supine radiographic image of the abdomen acquired. LIMITATIONS: None. FINDINGS: BOWEL GAS PATTERN: Multiple air distended bowel loops are again identified. CALCIFICATIONS: No suspicious calcifications. SOFT TISSUES: No gross mass or suggestion of organomegaly. HARDWARE: NG tube is seen with its tip in the left upper quadrant presumably at the level of the jimena ly fundus. BONES: No acute fracture. No worrisome bone lesions. OTHER: No other significant finding. IMPRESSION: NG tube with its tip in the left upper quadrant presumably at the level of the gastric f undus. Other findings as noted above TECHNICAL DOCUMENTATION: JOB ID: [id number] [employer]- All Rights Reserved Reading location - IP/workstation name: [email or web address]
[2017-10-21] MEDS ORDERED: PHARMACY COMMUNICATION ORDER MC NR (19:45)
[2017-10-21] MEDS ORDERED: MAGNESIUM HYDROXIDE SUSP 30 ML UDCUP NG PRN (20:00)
[2017-10-21] MEDS: LACTULOSE SYRUP 20 GM/30 ML UDCUP NG SCH (21:46)
[2017-10-21] MEDS: CLINDAMYCIN 300 MG/D5W RTU 300 MG/50 ML RTUPB IV SCH (21:59)
[2017-10-22] MEDS: CLINDAMYCIN 300 MG/D5W RTU 300 MG/50 ML RTUPB IV SCH ×3 (05:11→21:03)
[2017-10-22] MEDS: MORPHINE SULFATE 10 MG/ML INJ IV PRN ×3 (06:52→22:41)
[2017-10-22 08:03] LABS: ANION GAP 9 (5-19); BLOOD UREA NITROGEN 39 mg/dL (7-20); CALCIUM 8.3 mg/dL (8.4-10.2); CARBON DIOXIDE 30 mmol/L (22-30); CHLORIDE 97 mmol/L (98-107); CREATINE KINASE 99 U/L (55-170); GLUCOSE 95 mg/dL (75-110); PHOSPHORUS 3.9 mg/dL (2.5-4.5); POTASSIUM 4.3 mmol/L (3.6-5.0); SODIUM 136.3 mmol/L (137-145)
[2017-10-22 08:08] LABS: HEMATOCRIT 30.5 % (37.9-51.0); HEMOGLOBIN 10.4 g/dL (13.5-17.0); MEAN CORPUSCULAR HEMOGLOBIN 29.3 pg (27.0-33.4); MEAN CORPUSCULAR VOLUME 86 fl (80-97); PLATELET COUNT 290 10^3/uL (150-450); RED BLOOD COUNT 3.54 10^6/uL (4.35-5.55); RED CELL DISTRIBUTION WIDTH 14.5 % (11.5-14.0); WHITE BLOOD COUNT 8.9 10^3/uL (4.0-10.5)
[2017-10-22] MEDS: IPRATROPIUM/ALBUTEROL 0.5-2.5 MG/3 ML AMPUL NEB SCH ×4 (08:35→23:26)
[2017-10-22] MEDS ORDERED: FENTANYL CITRATE INJ/PF 100 MCG/2 ML AMPUL IV ONE (10:16)
[2017-10-22] MEDS: OXYCODONE HCL SR 10 MG TABLET PO SCH (10:16)
[2017-10-22] MEDS: PRENATAL VITAMIN W DHA CAPSULE PO SCH (10:36)
[2017-10-22] MEDS: SENNOSIDES/DOCUSATE 8.6-50 MG 1 EACH TABLET NG SCH ×2 (10:36→18:50)
[2017-10-22] MEDS: POLYETHYLENE GLYCOL 3350 POWDER 17 GM/1 PACKET PO SCH (10:36)
[2017-10-22] MEDS: MINERAL OIL/PETROLATUM,WHITE CREAM 114 GM TP SCH (10:36)
[2017-10-22] MEDS: LACTULOSE SYRUP 20 GM/30 ML UDCUP NG SCH ×2 (10:36→21:03)
[2017-10-22] MEDS: ENOXAPARIN SODIUM INJ 40 MG/0.4 ML DISP.SYRIN SUBCUT SCH (10:37)
--- NOTE | 2017-10-22 14:15 | PDOC PROGRESS REPORT ---
Subjective Progress Note for:: 10/22/17 Subjective:: Patient sleeping in bed with NG tube placed. Currently n.p.o. for his ileus Reason For Visit: STATUS POST RIGHT HIP HEMIARTHROPLASTY Physical Exam Vital Signs: Temp Pulse Resp BP Pulse Ox 36.9 C 81 17 122/51 L 98 10/22/17 11:32 10/22/17 11:32 10/22/17 11:32 10/22/17 11:32 10/22/17 11:32 Intake & Output 10/21/17 10/22/17 10/23/17 06:59 06:59 06:59 Intake Total 118 100 Output Total 300 2950 Balance -182 -2850 Weight 98.7 kg 98.3 kg Adult Front & Back Image: 1 - Incision is dry clean and intact with mild bloody drainage. Limb lengths are grossly equal neurovascular exam unchanged. Results Laboratory Results: 10/22/17 06:50 10/22/17 06:50 10/22/17 10/22/17 06:50 06:50 WBC 8.9 RBC 3.54 L Hgb 10.4 L Hct 30.5 L MCV 86 MCH 29.3 MCHC 34.0 RDW 14.5 H Plt Count 290 Sodium 136.3 L Potassium 4.3 Chloride 97 L Carbon Dioxide 30 Anion Gap 9 BUN 39 H Creatinine 0.95 Est GFR ( Amer) > 60 Est GFR (Non-Af Amer) > 60 Glucose 95 Calcium 8.3 L Phosphorus 3.9 Magnesium 2.2 10/15/17 10/15/17 10/15/17 03:15 03:15 10:30 Creatine Kinase 122 368 H CK-MB (CK-2) 1.31 Troponin I < 0.012 NT-Pro-B Natriuret Pep 10/15/17 10/15/17 10/15/17 10:30 16:55 16:55 Creatine Kinase CK-MB (CK-2) 2.92 Troponin I 0.018 0.036 NT-Pro-B Natriuret Pep 2240 H 10/16/17 10/16/17 10/16/17 06:12 06:12 17:30 Creatine Kinase 923 H 1244 H CK-MB (CK-2) Troponin I 0.064 NT-Pro-B Natriuret Pep 10/16/17 10/16/17 10/16/17 17:35 23:20 23:20 Creatine Kinase 1271 H CK-MB (CK-2) 7.25 H 6.76 H Troponin I 0.056 0.054 NT-Pro-B Natriuret Pep 10/17/17 10/17/17 10/18/17 10:53 10:53 06:15 Creatine Kinase 1307 H CK-MB (CK-2) 7.41 H Troponin I 0.033 0.015 NT-Pro-B Natriuret Pep 2910 H 10/19/17 10/19/17 10/21/17 05:08 05:08 09:53 Creatine Kinase 1032 H CK-MB (CK-2) Troponin I NT-Pro-B Natriuret Pep 1080 H 594 H 10/22/17 10/22/17 06:50 06:50 Creatine Kinase 99 CK-MB (CK-2) Troponin I NT-Pro-B Natriuret Pep 886 H Impressions: Hip/Pelvis X-Ray 10/16/17 16:39 IMPRESSION: SATISFACTORY POSTOPERATIVE RIGHT HIP. Chest X-Ray 10/17/17 00:00 IMPRESSION: Peripheral right lung interstitial changes appear more dense on today's exam. Findings may represent pneumonia in the appropriate clinical setting. Head CT 10/17/17 00:00 IMPRESSION: CHRONIC CHANGES OF ATROPHY AND MICROVASCULAR ISCHEMIA. NO ACUTE PROCESS. EVIDENCE OF ACUTE STROKE: NO. KUB X-Ray 10/21/17 00:00 IMPRESSION: NG tube with its tip in the left upper quadrant presumably at the level of the gastric fundus. Other findings as noted above Assessment & Plan - Plan Summary Plan Summary: Patient is 86-year-old gentleman POD #6 from right hip hemiarthroplasty Primary team taking care of his ileus. Orthopedics will take a backseat.. Continue physical therapy Continue pain control Continue DVT prophylaxis Awaiting senior living facility placement
--- NOTE | 2017-10-22 18:42 | PDOC PROGRESS REPORT ---
Subjective Progress Note for:: 10/22/17 Subjective:: The patient is an 86 year old male with a past medical history of lymphoma ( unknown type/staging; declining further treatment), COPD, CHF, debility, and BLE venous stasis dermatitis (chronic) who was admitted 10/15/17 for a Rt hip fracture secondary to mechanical fall. Ileus and fecal retention discovered on KUB yesterday, NG tube placed yesterday afternoon. The patient is seen this afternoon on rounds, he is resting in bed. States his abdominal distention and pain have greatly improved since NG tube placement. The patient denies passing flatus. Patient has still not had a bowel movement. The patient reports he was able to work with PT today and he was able to tolerate it well. Upon assessment, abdomen appears distended but soft, mild diffuse TTP. (+) Bowel sounds but they are hypoactive. Pulses are palpable in the upper extremities and lower extremities. Anterior dull erythema in both lower extremities, multiple shallow ulcerations, no drainage. Chronic skin changes indicative of venous stasis. Plan for suppository today. Consider repeating enema tomorrow. Reason For Visit: STATUS POST RIGHT HIP HEMIARTHROPLASTY Physical Exam Vital Signs: Temp Pulse Resp BP Pulse Ox 98.0 F 86 18 140/59 H 96 10/22/17 16:08 10/22/17 16:13 10/22/17 16:13 10/22/17 16:08 10/22/17 16:13 Intake & Output 10/21/17 10/22/17 10/23/17 06:59 06:59 06:59 Intake Total 118 100 50 Output Total 300 2950 Balance -182 -2850 50 Weight 98.7 kg 98.3 kg General appearance: PRESENT: obese Eye exam: PRESENT: conjunctiva pink, PERRLA Mouth exam: PRESENT: moist, tongue midline Teeth exam: PRESENT: poor dentation Neck exam: PRESENT: full ROM. ABSENT: JVD Respiratory exam: PRESENT: clear to auscultation ricardo, symmetrical, unlabored Cardiovascular exam: PRESENT: +S1, +S2, systolic murmur - CHRONIC Pulses: PRESENT: normal radial pulses, +1 pedal pulses bilateral GI/Abdominal exam: PRESENT: hypoactive bowel sounds, soft, tenderness, other - ng tube to low continuous suction Rectal exam: PRESENT: deferred Extremities exam: ABSENT: full ROM Musculoskeletal exam: PRESENT: ambulatory - with assitance, full ROM Neurological exam: PRESENT: alert, awake, oriented to person, oriented to place , oriented to time, oriented to situation Psychiatric exam: PRESENT: appropriate affect Skin exam: PRESENT: dry, erythema - bilateral lower extremities, warm Results Laboratory Results: 10/22/17 06:50 10/22/17 06:50 10/22/17 10/22/17 06:50 06:50 WBC 8.9 RBC 3.54 L Hgb 10.4 L Hct 30.5 L MCV 86 MCH 29.3 MCHC 34.0 RDW 14.5 H Plt Count 290 Sodium 136.3 L Potassium 4.3 Chloride 97 L Carbon Dioxide 30 Anion Gap 9 BUN 39 H Creatinine 0.95 Est GFR ( Amer) > 60 Est GFR (Non-Af Amer) > 60 Glucose 95 Calcium 8.3 L Phosphorus 3.9 Magnesium 2.2 10/15/17 10/15/17 10/15/17 03:15 03:15 10:30 Creatine Kinase 122 368 H CK-MB (CK-2) 1.31 Troponin I < 0.012 NT-Pro-B Natriuret Pep 10/15/17 10/15/17 10/15/17 10:30 16:55 16:55 Creatine Kinase CK-MB (CK-2) 2.92 Troponin I 0.018 0.036 NT-Pro-B Natriuret Pep 2240 H 10/16/17 10/16/17 10/16/17 06:12 06:12 17:30 Creatine Kinase 923 H 1244 H CK-MB (CK-2) Troponin I 0.064 NT-Pro-B Natriuret Pep 10/16/17 10/16/17 10/16/17 17:35 23:20 23:20 Creatine Kinase 1271 H CK-MB (CK-2) 7.25 H 6.76 H Troponin I 0.056 0.054 NT-Pro-B Natriuret Pep 10/17/17 10/17/17 10/18/17 10:53 10:53 06:15 Creatine Kinase 1307 H CK-MB (CK-2) 7.41 H Troponin I 0.033 0.015 NT-Pro-B Natriuret Pep 2910 H 10/19/17 10/19/17 10/21/17 05:08 05:08 09:53 Creatine Kinase 1032 H CK-MB (CK-2) Troponin I NT-Pro-B Natriuret Pep 1080 H 594 H 10/22/17 10/22/17 06:50 06:50 Creatine Kinase 99 CK-MB (CK-2) Troponin I NT-Pro-B Natriuret Pep 886 H Impressions: Hip/Pelvis X-Ray 10/16/17 16:39 IMPRESSION: SATISFACTORY POSTOPERATIVE RIGHT HIP. Chest X-Ray 10/17/17 00:00 IMPRESSION: Peripheral right lung interstitial changes appear more dense on today's exam. Findings may represent pneumonia in the appropriate clinical setting. Head CT 10/17/17 00:00 IMPRESSION: CHRONIC CHANGES OF ATROPHY AND MICROVASCULAR ISCHEMIA. NO ACUTE PROCESS. EVIDENCE OF ACUTE STROKE: NO. KUB X-Ray 10/21/17 00:00 IMPRESSION: NG tube with its tip in the left upper quadrant presumably at the level of the gastric fundus. Other findings as noted above Status: Imported from PACS Assessment & Plan - Diagnosis (1) Fracture of head of right femur Qualifiers: Encounter type: initial encounter Fracture type: closed Qualified Code(s) : S72.051A - Unspecified fracture of head of right femur, initial encounter for closed fracture Is this a current diagnosis for this admission?: Yes Plan: Secondary to mechanical fall Now POST-OP right hip hemiarthroplasty Primary plan per orthopedics Cardiology consulted and provided cardiac clearance Analgesics and antiemetics as needed Lovenox for DVT prophylaxis per orthopedic recommendations Currently awaiting placement at [facility] (2) Cellulitis Qualifiers: Site of cellulitis: extremity Site of cellulitis of extremity: lower extremity Laterality: right Qualified Code(s): L03.115 - Cellulitis of right lower limb Is this a current diagnosis for this admission?: Yes Plan: Continues to improve, secondary to chronic venous stasis and venous ulceration Bilateral lower extremities are edematous, anterior dull erythema, multiple shallow ulcerations, no drainage Continue clindamycin Patient will benefit from podiatry and/or wound clinic follow-up as outpatient (3) Debility Is this a current diagnosis for this admission?: Yes Plan: Daily PT/OT Anticipate for acute rehabilitation upon discharge Discharge planning aware Currently awaiting placement at [facility] (4) Congestive heart failure Qualifiers: Heart failure type: diastolic Heart failure chronicity: chronic Qualified Code(s): I50.32 - Chronic diastolic (congestive) heart failure Is this a current diagnosis for this admission?: Yes Plan: Echocardiogram reveals preserved LVEF, mild diastolic dysfunction, trace MR, mild TR, moderate pulmonary hypertension ProBNP improving 2240->1080->594->886 Troponins peaked at 0.064, no longer trending Trace generalized edema, improving since starting daily diuresis IVF discontinued Continue daily IV lasix, will have to transition to daily PO lasix prior to acute rehab Daily weights and strict I's and O's (5) Fall Qualifiers: Encounter type: initial encounter Qualified Code(s): W19.XXXA - Unspecified fall, initial encounter Is this a current diagnosis for this admission?: Yes Plan: Mechanical fall at home Fall precautions are in place Remaining plan as above (6) Kidney insufficiency Is this a current diagnosis for this admission?: Yes Plan: Improved Creatinine peaked at 1.4, down to 0.95 Avoid nephrotoxic medications Le catheter for strict I's and O's Monitor daily chemistries (7) Rhabdomyolysis Qualifiers: Rhabdomyolysis type: traumatic Is this a current diagnosis for this admission?: Yes Plan: Secondary to fall resulting in right hip fracture CK increasing 116-->1032 yesterday Check CK in AM Le catheter for strict I's and O's Encourage p.o. fluids Continue to trend Early mobility, encourage cooperation with physical therapy (8) Left arm weakness Is this a current diagnosis for this admission?: Yes Plan: Resolved. Likely secondary to generalized debility & sedation Head CT was negative for acute CVA Laboratory evaluation benign PT OT consulted recommend acute rehab (9) Adynamic ileus Is this a current diagnosis for this admission?: Yes Plan: As seen on KUB Secondary to constipation stemming from immobility and daily narcotic use Patient states he has not had a bowel movement in 6 + days NG tube to low continuous wall suction for bowel decompression Senna BID, daily MiraLAX, PRN milk of magnesia Continue daily Lactulose Initiate daily suppositories Attempted soap suds enema yesterday but was unsuccessful. Consider attempting enema again tomorrow. - Time Time Spent with patient: 15-24 minutes Medications reviewed and adjusted accordingly: Yes Anticipated discharge: SNF - Inpatient Certification Based on my medical assessment, after consideration of the patient's comorbidities, presenting symptoms, or acuity I expect that the services needed warrant INPATIENT care.: Yes I certify that my determination is in accordance with my understanding of Medicare's requirements for reasonable and necessary INPATIENT services [42 CFR 412.3e].: Yes Medical Necessity: Risk of Complication if Not Cared For in Hospital - Plan Summary Plan Summary: INITIATE SUPPOSITORY
[2017-10-22] MEDS: BISACODYL 10 MG SUPP.RECT PR SCH (18:51)
[2017-10-23] MEDS: CLINDAMYCIN 300 MG/D5W RTU 300 MG/50 ML RTUPB IV SCH ×3 (05:23→21:41)
[2017-10-23] MEDS: MORPHINE SULFATE 10 MG/ML INJ IV PRN ×2 (07:18→21:43)
[2017-10-23] MEDS: IPRATROPIUM/ALBUTEROL 0.5-2.5 MG/3 ML AMPUL NEB SCH (08:35)
[2017-10-23] MEDS ORDERED: IPRATROPIUM/ALBUTEROL 0.5-2.5 MG/3 ML AMPUL NEB PRN (09:29)
[2017-10-23] MEDS: POLYETHYLENE GLYCOL 3350 POWDER 17 GM/1 PACKET PO SCH (11:33)
[2017-10-23] MEDS: SENNOSIDES/DOCUSATE 8.6-50 MG 1 EACH TABLET NG SCH ×2 (11:33→17:27)
[2017-10-23] MEDS: LACTULOSE SYRUP 20 GM/30 ML UDCUP NG SCH ×2 (11:33→21:40)
[2017-10-23] MEDS: MINERAL OIL/PETROLATUM,WHITE CREAM 114 GM TP SCH (11:34)
[2017-10-23] MEDS: ENOXAPARIN SODIUM INJ 40 MG/0.4 ML DISP.SYRIN SUBCUT SCH (11:35)
[2017-10-23] MEDS: BISACODYL 10 MG SUPP.RECT PR SCH (11:36)
[2017-10-23] MEDS: PRENATAL VITAMIN W DHA CAPSULE PO SCH (11:37)
--- NOTE | 2017-10-23 21:04 | PDOC PROGRESS REPORT ---
<EMILY DOUGHERTY Ijeoma - Last Filed: 10/23/17 20:47> Subjective Progress Note for:: 10/23/17 Subjective:: The patient is an 86 year old male with a past medical history of lymphoma ( unknown type/staging; declining further treatment), COPD, CHF, debility, and BLE venous stasis dermatitis (chronic) who was admitted 10/15/17 for a Rt hip fracture secondary to mechanical fall. Ileus and fecal retention discovered on KUB 10/21, NG tube placed 10/22. The patient is seen this afternoon on rounds, he is resting in bed. Nursing staff administered a molasses enema this morning and is starting to have bowel movements and passing flatus. Upon assessment, abdomen appears distended but soft, no TTP. (+) Bowel sounds but they are hypoactive. Pulses are palpable in the upper extremities and lower extremities. Anterior dull erythema in both lower extremities, multiple shallow ulcerations, no drainage. Chronic skin changes indicative of venous stasis. Nursing staff reported today around 1600 the patient was napping and accidentally removed his NG tube. No need for replacement now that patient is passing stool. He is able to take PO medications without difficulty. Will consider replacement of NG tube if patient becomes acutely constipated or if his ileus should get worse. Continue aggressive bowel regimen. Patient awaiting transfer to acute rehab once medically cleared. Reason For Visit: STATUS POST RIGHT HIP HEMIARTHROPLASTY Physical Exam Vital Signs: Temp Pulse Resp BP Pulse Ox 98.7 F 81 18 144/62 H 92 10/23/17 15:03 10/23/17 15:03 10/23/17 15:03 10/23/17 15:03 10/23/17 15:03 Intake & Output 10/22/17 10/23/17 10/24/17 06:59 06:59 06:59 Intake Total 100 150 50 Output Total 2950 300 602 Balance -5601 -150 -932 Weight 98.3 kg 98.3 kg General appearance: PRESENT: morbidly obese Head exam: PRESENT: atraumatic Eye exam: PRESENT: conjunctiva pink, PERRLA Mouth exam: PRESENT: moist Teeth exam: PRESENT: poor dentation Neck exam: PRESENT: full ROM Respiratory exam: PRESENT: clear to auscultation ricardo, symmetrical, unlabored. ABSENT: wheezes Cardiovascular exam: PRESENT: +S1, +S2 Pulses: PRESENT: normal radial pulses, +1 pedal pulses bilateral Vascular exam: PRESENT: normal capillary refill GI/Abdominal exam: PRESENT: distended, hypoactive bowel sounds, soft. ABSENT: firm, tenderness Rectal exam: PRESENT: deferred Extremities exam: PRESENT: pedal edema. ABSENT: full ROM Musculoskeletal exam: PRESENT: ambulatory - with assistance. ABSENT: full ROM Neurological exam: PRESENT: alert, awake, oriented to person, oriented to place , oriented to time, oriented to situation Psychiatric exam: PRESENT: appropriate affect Skin exam: PRESENT: dry, erythema - bilateral lower extremities, intact Results Laboratory Results: 10/22/17 06:50 10/22/17 06:50 10/15/17 10/15/17 10/15/17 03:15 03:15 10:30 Creatine Kinase 122 368 H CK-MB (CK-2) 1.31 Troponin I < 0.012 NT-Pro-B Natriuret Pep 10/15/17 10/15/17 10/15/17 10:30 16:55 16:55 Creatine Kinase CK-MB (CK-2) 2.92 Troponin I 0.018 0.036 NT-Pro-B Natriuret Pep 2240 H 10/16/17 10/16/17 10/16/17 06:12 06:12 17:30 Creatine Kinase 923 H 1244 H CK-MB (CK-2) Troponin I 0.064 NT-Pro-B Natriuret Pep 10/16/17 10/16/17 10/16/17 17:35 23:20 23:20 Creatine Kinase 1271 H CK-MB (CK-2) 7.25 H 6.76 H Troponin I 0.056 0.054 NT-Pro-B Natriuret Pep 10/17/17 10/17/17 10/18/17 10:53 10:53 06:15 Creatine Kinase 1307 H CK-MB (CK-2) 7.41 H Troponin I 0.033 0.015 NT-Pro-B Natriuret Pep 2910 H 10/19/17 10/19/17 10/21/17 05:08 05:08 09:53 Creatine Kinase 1032 H CK-MB (CK-2) Troponin I NT-Pro-B Natriuret Pep 1080 H 594 H 10/22/17 10/22/17 06:50 06:50 Creatine Kinase 99 CK-MB (CK-2) Troponin I NT-Pro-B Natriuret Pep 886 H Impressions: Hip/Pelvis X-Ray 10/16/17 16:39 IMPRESSION: SATISFACTORY POSTOPERATIVE RIGHT HIP. Chest X-Ray 10/17/17 00:00 IMPRESSION: Peripheral right lung interstitial changes appear more dense on today's exam. Findings may represent pneumonia in the appropriate clinical setting. Head CT 10/17/17 00:00 IMPRESSION: CHRONIC CHANGES OF ATROPHY AND MICROVASCULAR ISCHEMIA. NO ACUTE PROCESS. EVIDENCE OF ACUTE STROKE: NO. KUB X-Ray 10/21/17 00:00 IMPRESSION: NG tube with its tip in the left upper quadrant presumably at the level of the gastric fundus. Other findings as noted above Status: Imported from PACS Assessment & Plan - Diagnosis (1) Fracture of head of right femur QualifierTitle: Encounter type: initial encounter Fracture type: closed Qualified Code(s): S72.051A - Unspecified fracture of head of right femur, initial encounter for closed fracture Is this a current diagnosis for this admission?: Yes Plan: Secondary to mechanical fall Now POST-OP right hip hemiarthroplasty Primary plan per orthopedics Cardiology consulted and provided cardiac clearance Analgesics and antiemetics as needed Lovenox for DVT prophylaxis per orthopedic recommendations Currently awaiting placement at [facility] [place] (2) Cellulitis QualifierTitle: Site of cellulitis: extremity Site of cellulitis of extremity: lower extremity Laterality: right Qualified Code(s): L03.115 - Cellulitis of right lower limb Is this a current diagnosis for this admission?: Yes Plan: Continues to improve, secondary to chronic venous stasis and venous ulceration Bilateral lower extremities are edematous, anterior dull erythema, multiple shallow ulcerations, no drainage Continue clindamycin Patient will benefit from podiatry and/or wound clinic follow-up as outpatient (3) Debility Is this a current diagnosis for this admission?: Yes Plan: Daily PT/OT Anticipate for acute rehabilitation upon discharge Discharge planning aware Currently awaiting placement at [facility] (4) Congestive heart failure QualifierTitle: Heart failure type: diastolic Heart failure chronicity: chronic Qualified Code(s): I50.32 - Chronic diastolic (congestive) heart failure Is this a current diagnosis for this admission?: Yes Plan: Echocardiogram reveals preserved LVEF, mild diastolic dysfunction, trace MR, mild TR, moderate pulmonary hypertension ProBNP improving 2240->1080->594->886 Troponins peaked at 0.064, no longer trending Trace generalized edema, improved with diuresis Will continue daily diuresis with PO lasix Daily weights and strict I's and O's (5) Fall QualifierTitle: Encounter type: initial encounter Qualified Code(s): W19.XXXA - Unspecified fall, initial encounter Is this a current diagnosis for this admission?: Yes Plan: Mechanical fall at home Fall precautions are in place Remaining plan as above (6) Kidney insufficiency Is this a current diagnosis for this admission?: Yes Plan: Improved Creatinine peaked at 1.4, down to < 1.0 for 24hrs+ Avoid nephrotoxic medications Le catheter for strict I's and O's Monitor daily chemistries (7) Rhabdomyolysis QualifierTitle: Rhabdomyolysis type: traumatic Is this a current diagnosis for this admission?: Yes Plan: Secondary to fall resulting in right hip fracture CK increasing 116-->1032 Check CK in AM Le catheter for strict I's and O's Encourage p.o. fluids Continue to trend Early mobility, encourage cooperation with physical therapy (8) Left arm weakness Is this a current diagnosis for this admission?: Yes Plan: Resolved. Likely secondary to generalized debility & sedation Head CT was negative for acute CVA Laboratory evaluation benign PT OT consulted recommend acute rehab (9) Adynamic ileus Is this a current diagnosis for this admission?: Yes Plan: As seen on KUB Secondary to constipation stemming from immobility and daily narcotic use Patient states he has not had a bowel movement in 7 + days Attempted soap suds enema but was unsuccessful. Molasses enema administered today and patient is now having bowel movements. NG tube to low continuous wall suction for bowel decompression. Removed this afternoon. No plan to replace at this time. Senna BID, daily MiraLAX, PRN milk of magnesia Daily Lactulose Daily suppositories - Time Time Spent with patient: 25-34 minutes Medications reviewed and adjusted accordingly: Yes Anticipated discharge: SNF - Inpatient Certification Based on my medical assessment, after consideration of the patient's comorbidities, presenting symptoms, or acuity I expect that the services needed warrant INPATIENT care.: Yes I certify that my determination is in accordance with my understanding of Medicare's requirements for reasonable and necessary INPATIENT services [42 CFR 412.3e].: Yes Medical Necessity: Risk of Complication if Not Cared For in Hospital <BREKVNG WATT M - Last Filed: 11/02/17 16:18> Subjective Reason For Visit: STATUS POST RIGHT HIP HEMIARTHROPLASTY Physical Exam Vital Signs: Temp Pulse Resp BP Pulse Ox 98.1 F 76 17 129/64 H 99 10/26/17 11:25 10/26/17 11:25 10/26/17 11:25 10/26/17 11:25 10/26/17 11:25 Results Laboratory Results: 10/26/17 04:11 10/26/17 04:11 10/15/17 10/15/17 10/15/17 03:15 03:15 10:30 Creatine Kinase 122 368 H CK-MB (CK-2) 1.31 Troponin I < 0.012 NT-Pro-B Natriuret Pep 10/15/17 10/15/17 10/15/17 10:30 16:55 16:55 Creatine Kinase CK-MB (CK-2) 2.92 Troponin I 0.018 0.036 NT-Pro-B Natriuret Pep 2240 H 10/16/17 10/16/17 10/16/17 06:12 06:12 17:30 Creatine Kinase 923 H 1244 H CK-MB (CK-2) Troponin I 0.064 NT-Pro-B Natriuret Pep 10/16/17 10/16/17 10/16/17 17:35 23:20 23:20 Creatine Kinase 1271 H CK-MB (CK-2) 7.25 H 6.76 H Troponin I 0.056 0.054 NT-Pro-B Natriuret Pep 10/17/17 10/17/17 10/18/17 10:53 10:53 06:15 Creatine Kinase 1307 H CK-MB (CK-2) 7.41 H Troponin I 0.033 0.015 NT-Pro-B Natriuret Pep 2910 H 10/19/17 10/19/17 10/21/17 05:08 05:08 09:53 Creatine Kinase 1032 H CK-MB (CK-2) Troponin I NT-Pro-B Natriuret Pep 1080 H 594 H 10/22/17 10/22/17 10/24/17 06:50 06:50 04:00 Creatine Kinase 99 71 CK-MB (CK-2) Troponin I NT-Pro-B Natriuret Pep 886 H 10/24/17 10/25/17 10/26/17 04:00 04:16 04:11 Creatine Kinase CK-MB (CK-2) Troponin I NT-Pro-B Natriuret Pep 1100 H 1010 H 1050 H Impressions: Hip/Pelvis X-Ray 10/16/17 16:39 IMPRESSION: SATISFACTORY POSTOPERATIVE RIGHT HIP. Chest X-Ray 10/17/17 00:00 IMPRESSION: Peripheral right lung interstitial changes appear more dense on today's exam. Findings may represent pneumonia in the appropriate clinical setting. Head CT 10/17/17 00:00 IMPRESSION: CHRONIC CHANGES OF ATROPHY AND MICROVASCULAR ISCHEMIA. NO ACUTE PROCESS. EVIDENCE OF ACUTE STROKE: NO. KUB X-Ray 10/21/17 00:00 IMPRESSION: NG tube with its tip in the left upper quadrant presumably at the level of the gastric fundus. Other findings as noted above Provider Note Provider Note: I have discussed this patient in detail with ONEIL Dougherty. I am in agreement with her evaluation and plan.
[2017-10-24] MEDS: MORPHINE SULFATE 10 MG/ML INJ IV PRN (01:42)
[2017-10-24] MEDS: CYCLOBENZAPRINE HCL 10 MG TABLET NG PRN (01:48)
[2017-10-24] MEDS ORDERED: HYDROMORPHONE HCL INJ/PF 2 MG/ML AMPULE IV ONE (06:00)
[2017-10-24] MEDS: CLINDAMYCIN 300 MG/D5W RTU 300 MG/50 ML RTUPB IV SCH ×3 (06:23→22:32)
[2017-10-24] MEDS: LACTULOSE SYRUP 20 GM/30 ML UDCUP NG SCH ×2 (12:56→22:31)
[2017-10-24] MEDS: PRENATAL VITAMIN W DHA CAPSULE PO SCH (12:57)
[2017-10-24] MEDS: SENNOSIDES/DOCUSATE 8.6-50 MG 1 EACH TABLET NG SCH ×2 (12:57→18:00)
[2017-10-24] MEDS: POLYETHYLENE GLYCOL 3350 POWDER 17 GM/1 PACKET PO SCH (12:58)
[2017-10-24] MEDS: BISACODYL 10 MG SUPP.RECT PR SCH (12:59)
[2017-10-24] MEDS: ENOXAPARIN SODIUM INJ 40 MG/0.4 ML DISP.SYRIN SUBCUT SCH (12:59)
[2017-10-24] MEDS: ACETAMINOPHEN 325 MG TABLET NG PRN (13:16)
[2017-10-24] MEDS: MINERAL OIL/PETROLATUM,WHITE CREAM 114 GM TP SCH (13:17)
--- NOTE | 2017-10-24 22:28 | PDOC PROGRESS REPORT ---
<EMILY DOUGHERTY Ijeoma - Last Filed: 10/24/17 21:38> Subjective Progress Note for:: 10/24/17 Subjective:: The patient is an 86 year old male with a past medical history of lymphoma ( unknown type/staging; declining further treatment), COPD, CHF, debility, and BLE venous stasis dermatitis (chronic) who was admitted 10/15/17 for a Rt hip fracture secondary to mechanical fall. Ileus and fecal retention discovered on KUB 10/21, NG tube placed 10/22. The patient is seen this afternoon on rounds, he is resting in bed. The patient started to have bowel movements and passing flatus yesterday following molasses enema. Upon assessment, abdomen appears distended but soft, no TTP. (+) Bowel sounds. Pulses are palpable in the upper extremities and lower extremities. Anterior dull erythema in both lower extremities, multiple shallow ulcerations, no drainage. Chronic skin changes indicative of venous stasis. Continue aggressive bowel regimen. Advance diet today as tolerated. Likely transfer to SNF rehab tomorrow. Reason For Visit: STATUS POST RIGHT HIP HEMIARTHROPLASTY Physical Exam Vital Signs: Temp Pulse Resp BP Pulse Ox 97.5 F 77 16 134/63 H 97 10/24/17 15:31 10/24/17 16:52 10/24/17 16:52 10/24/17 15:31 10/24/17 16:52 Intake & Output 10/23/17 10/24/17 10/25/17 06:59 06:59 06:59 Intake Total 150 100 100 Output Total 300 1052 Balance -150 -952 100 Weight 98.3 kg 92.9 kg General appearance: PRESENT: morbidly obese Head exam: PRESENT: atraumatic Eye exam: PRESENT: conjunctiva pink, PERRLA Mouth exam: PRESENT: moist Teeth exam: PRESENT: poor dentation Neck exam: PRESENT: full ROM Respiratory exam: PRESENT: clear to auscultation ricardo, symmetrical, unlabored Cardiovascular exam: PRESENT: +S1, +S2, systolic murmur - chronic Pulses: PRESENT: normal radial pulses, +1 pedal pulses bilateral GI/Abdominal exam: PRESENT: normal bowel sounds, soft. ABSENT: distended, tenderness Rectal exam: PRESENT: deferred Extremities exam: ABSENT: full ROM Musculoskeletal exam: PRESENT: ambulatory - with assistance, full ROM Neurological exam: PRESENT: alert, awake, oriented to person, oriented to place , oriented to time, oriented to situation Psychiatric exam: PRESENT: appropriate affect Skin exam: PRESENT: dry, erythema - bilateral lower extremities, intact, warm Results Laboratory Results: 10/22/17 06:50 10/22/17 06:50 10/15/17 10/15/17 10/15/17 03:15 03:15 10:30 Creatine Kinase 122 368 H CK-MB (CK-2) 1.31 Troponin I < 0.012 NT-Pro-B Natriuret Pep 10/15/17 10/15/17 10/15/17 10:30 16:55 16:55 Creatine Kinase CK-MB (CK-2) 2.92 Troponin I 0.018 0.036 NT-Pro-B Natriuret Pep 2240 H 10/16/17 10/16/17 10/16/17 06:12 06:12 17:30 Creatine Kinase 923 H 1244 H CK-MB (CK-2) Troponin I 0.064 NT-Pro-B Natriuret Pep 10/16/17 10/16/17 10/16/17 17:35 23:20 23:20 Creatine Kinase 1271 H CK-MB (CK-2) 7.25 H 6.76 H Troponin I 0.056 0.054 NT-Pro-B Natriuret Pep 10/17/17 10/17/17 10/18/17 10:53 10:53 06:15 Creatine Kinase 1307 H CK-MB (CK-2) 7.41 H Troponin I 0.033 0.015 NT-Pro-B Natriuret Pep 2910 H 10/19/17 10/19/17 10/21/17 05:08 05:08 09:53 Creatine Kinase 1032 H CK-MB (CK-2) Troponin I NT-Pro-B Natriuret Pep 1080 H 594 H 10/22/17 10/22/17 10/24/17 06:50 06:50 04:00 Creatine Kinase 99 71 CK-MB (CK-2) Troponin I NT-Pro-B Natriuret Pep 886 H 10/24/17 04:00 Creatine Kinase CK-MB (CK-2) Troponin I NT-Pro-B Natriuret Pep 1100 H Impressions: Hip/Pelvis X-Ray 10/16/17 16:39 IMPRESSION: SATISFACTORY POSTOPERATIVE RIGHT HIP. Chest X-Ray 10/17/17 00:00 IMPRESSION: Peripheral right lung interstitial changes appear more dense on today's exam. Findings may represent pneumonia in the appropriate clinical setting. Head CT 10/17/17 00:00 IMPRESSION: CHRONIC CHANGES OF ATROPHY AND MICROVASCULAR ISCHEMIA. NO ACUTE PROCESS. EVIDENCE OF ACUTE STROKE: NO. KUB X-Ray 10/21/17 00:00 IMPRESSION: NG tube with its tip in the left upper quadrant presumably at the level of the gastric fundus. Other findings as noted above Status: Imported from PACS Assessment & Plan - Diagnosis (1) Fracture of head of right femur QualifierTitle: Encounter type: initial encounter Fracture type: closed Qualified Code(s): S72.051A - Unspecified fracture of head of right femur, initial encounter for closed fracture Is this a current diagnosis for this admission?: Yes Plan: Secondary to mechanical fall Now POST-OP right hip hemiarthroplasty Primary plan per orthopedics Cardiology consulted and provided cardiac clearance Analgesics and antiemetics as needed Lovenox for DVT prophylaxis per orthopedic recommendations Currently awaiting placement at [facility] (2) Cellulitis QualifierTitle: Site of cellulitis: extremity Site of cellulitis of extremity: lower extremity Laterality: right Qualified Code(s): L03.115 - Cellulitis of right lower limb Is this a current diagnosis for this admission?: Yes Plan: Continues to improve, secondary to chronic venous stasis and venous ulceration Bilateral lower extremities are edematous, anterior dull erythema, multiple shallow ulcerations, no drainage Continue clindamycin Patient will benefit from podiatry and/or wound clinic follow-up as outpatient (3) Debility Is this a current diagnosis for this admission?: Yes Plan: Daily PT/OT Anticipate for acute rehabilitation upon discharge Discharge planning aware Currently awaiting placement at [place] (4) Congestive heart failure QualifierTitle: Heart failure type: diastolic Heart failure chronicity: chronic Qualified Code(s): I50.32 - Chronic diastolic (congestive) heart failure Is this a current diagnosis for this admission?: Yes Plan: Echocardiogram reveals preserved LVEF, mild diastolic dysfunction, trace MR, mild TR, moderate pulmonary hypertension ProBNP improving 2240->1080->594->886 Troponins peaked at 0.064, no longer trending Trace generalized edema, improved with diuresis Daily weights and strict I's and O's (5) Fall QualifierTitle: Encounter type: initial encounter Qualified Code(s): W19.XXXA - Unspecified fall, initial encounter Is this a current diagnosis for this admission?: Yes Plan: Mechanical fall at home Fall precautions are in place Remaining plan as above (6) Kidney insufficiency Is this a current diagnosis for this admission?: Yes Plan: Improved Creatinine peaked at 1.4, down to < 1.0 for 24hrs+ Avoid nephrotoxic medications Le catheter for strict I's and O's Monitor daily chemistries (7) Rhabdomyolysis QualifierTitle: Rhabdomyolysis type: traumatic Is this a current diagnosis for this admission?: Yes Plan: Secondary to fall resulting in right hip fracture CK increasing 116-->1032 Check CK in AM Le catheter for strict I's and O's Encourage p.o. fluids Continue to trend Early mobility, encourage cooperation with physical therapy (8) Left arm weakness Is this a current diagnosis for this admission?: Yes Plan: Resolved. Likely secondary to generalized debility & sedation Head CT was negative for acute CVA Laboratory evaluation benign PT OT consulted recommend acute rehab (9) Adynamic ileus Is this a current diagnosis for this admission?: Yes Plan: Improving. As seen on KUB Secondary to constipation stemming from immobility and daily narcotic use Patient states he has not had a bowel movement in 7 + days Attempted soap suds enema but was unsuccessful. Molasses enema administered, patient had one bowel movement over night. NG tube removed yesterday. No plan to replace at this time. Senna BID, daily MiraLAX, PRN milk of magnesia Daily Lactulose Daily suppositories Continue aggressive bowel regimen until patient is having regular bowel movements. - Time Time Spent with patient: 15-24 minutes Smoking Cessation Education: 3 to 10 minutes Medications reviewed and adjusted accordingly: Yes Anticipated discharge: SNF - Inpatient Certification Based on my medical assessment, after consideration of the patient's comorbidities, presenting symptoms, or acuity I expect that the services needed warrant INPATIENT care.: Yes I certify that my determination is in accordance with my understanding of Medicare's requirements for reasonable and necessary INPATIENT services [42 CFR 412.3e].: Yes Medical Necessity: Risk of Complication if Not Cared For in Hospital - Plan Summary Plan Summary: discharge to snf rehab tomorrow <KVNG NAVAS M - Last Filed: 11/02/17 16:20> Subjective Reason For Visit: STATUS POST RIGHT HIP HEMIARTHROPLASTY Physical Exam Vital Signs: Temp Pulse Resp BP Pulse Ox 98.1 F 76 17 129/64 H 99 10/26/17 11:25 10/26/17 11:25 10/26/17 11:25 10/26/17 11:25 10/26/17 11:25 Results Laboratory Results: 10/26/17 04:11 10/26/17 04:11 10/15/17 10/15/17 10/15/17 03:15 03:15 10:30 Creatine Kinase 122 368 H CK-MB (CK-2) 1.31 Troponin I < 0.012 NT-Pro-B Natriuret Pep 10/15/17 10/15/17 10/15/17 10:30 16:55 16:55 Creatine Kinase CK-MB (CK-2) 2.92 Troponin I 0.018 0.036 NT-Pro-B Natriuret Pep 2240 H 10/16/17 10/16/17 10/16/17 06:12 06:12 17:30 Creatine Kinase 923 H 1244 H CK-MB (CK-2) Troponin I 0.064 NT-Pro-B Natriuret Pep 10/16/17 10/16/17 10/16/17 17:35 23:20 23:20 Creatine Kinase 1271 H CK-MB (CK-2) 7.25 H 6.76 H Troponin I 0.056 0.054 NT-Pro-B Natriuret Pep 10/17/17 10/17/17 10/18/17 10:53 10:53 06:15 Creatine Kinase 1307 H CK-MB (CK-2) 7.41 H Troponin I 0.033 0.015 NT-Pro-B Natriuret Pep 2910 H 10/19/17 10/19/17 10/21/17 05:08 05:08 09:53 Creatine Kinase 1032 H CK-MB (CK-2) Troponin I NT-Pro-B Natriuret Pep 1080 H 594 H 10/22/17 10/22/17 10/24/17 06:50 06:50 04:00 Creatine Kinase 99 71 CK-MB (CK-2) Troponin I NT-Pro-B Natriuret Pep 886 H 10/24/17 10/25/17 10/26/17 04:00 04:16 04:11 Creatine Kinase CK-MB (CK-2) Troponin I NT-Pro-B Natriuret Pep 1100 H 1010 H 1050 H Impressions: Hip/Pelvis X-Ray 10/16/17 16:39 IMPRESSION: SATISFACTORY POSTOPERATIVE RIGHT HIP. Chest X-Ray 10/17/17 00:00 IMPRESSION: Peripheral right lung interstitial changes appear more dense on today's exam. Findings may represent pneumonia in the appropriate clinical setting. Head CT 10/17/17 00:00 IMPRESSION: CHRONIC CHANGES OF ATROPHY AND MICROVASCULAR ISCHEMIA. NO ACUTE PROCESS. EVIDENCE OF ACUTE STROKE: NO. KUB X-Ray 10/21/17 00:00 IMPRESSION: NG tube with its tip in the left upper quadrant presumably at the level of the gastric fundus. Other findings as noted above Provider Note Provider Note: I have discussed this patient in detail with ONEIL Dougherty. I am in agreement with her evalution plan.
[2017-10-25] MEDS: MORPHINE SULFATE 10 MG/ML INJ IV PRN ×2 (00:06→16:00)
[2017-10-25] MEDS: CYCLOBENZAPRINE HCL 10 MG TABLET NG PRN ×2 (00:38→14:37)
[2017-10-25 05:34] LABS: HEMATOCRIT 33.8 % (37.9-51.0); HEMOGLOBIN 11.5 g/dL (13.5-17.0); MEAN CORPUSCULAR VOLUME 86 fl (80-97); RED BLOOD COUNT 3.94 10^6/uL (4.35-5.55); WHITE BLOOD COUNT 9.5 10^3/uL (4.0-10.5)
[2017-10-25 05:35] LABS: MEAN CORPUSCULAR HEMOGLOBIN 29.3 pg (27.0-33.4); MEAN CORPUSCULAR HGB CONC 34.1 g/dL (32.0-36.0); PLATELET COUNT 391 10^3/uL (150-450); RED CELL DISTRIBUTION WIDTH 14.3 % (11.5-14.0)
[2017-10-25 06:12] LABS: ANION GAP 9 (5-19); BLOOD UREA NITROGEN 32 mg/dL (7-20); CARBON DIOXIDE 31 mmol/L (22-30); CHLORIDE 98 mmol/L (98-107); GLUCOSE 89 mg/dL (75-110); PHOSPHORUS 3.9 mg/dL (2.5-4.5); POTASSIUM 4.4 mmol/L (3.6-5.0); SODIUM 138.2 mmol/L (137-145)
[2017-10-25] MEDS: CLINDAMYCIN 300 MG/D5W RTU 300 MG/50 ML RTUPB IV SCH ×3 (06:35→22:35)
[2017-10-25] MEDS: ACETAMINOPHEN 325 MG TABLET NG PRN (08:41)
[2017-10-25] MEDS: POLYETHYLENE GLYCOL 3350 POWDER 17 GM/1 PACKET PO SCH (11:04)
[2017-10-25] MEDS: LACTULOSE SYRUP 20 GM/30 ML UDCUP NG SCH ×2 (11:04→22:35)
[2017-10-25] MEDS: MINERAL OIL/PETROLATUM,WHITE CREAM 114 GM TP SCH (11:04)
[2017-10-25] MEDS: PRENATAL VITAMIN W DHA CAPSULE PO SCH (11:05)
[2017-10-25] MEDS: SENNOSIDES/DOCUSATE 8.6-50 MG 1 EACH TABLET NG SCH ×2 (11:05→17:37)
[2017-10-25] MEDS: BISACODYL 10 MG SUPP.RECT PR SCH (11:06)
[2017-10-25] MEDS: ENOXAPARIN SODIUM INJ 40 MG/0.4 ML DISP.SYRIN SUBCUT SCH (11:07)
--- NOTE | 2017-10-25 14:41 | PDOC TRANSFER SUMMARY ---
<EMILY AMBROCIO - Last Filed: 10/25/17 14:35> General Admission Date/PCP: 10/15/17 00:38 Admission Date: 10/15/17 Transfer Date: 10/25/17 Resuscitation Status: Full Code - Transfer Diagnosis (1) Fracture of head of right femur Is this a current diagnosis for this admission?: Yes (2) Cellulitis Is this a current diagnosis for this admission?: Yes (3) Debility Is this a current diagnosis for this admission?: Yes (4) Congestive heart failure Is this a current diagnosis for this admission?: Yes (5) Fall Is this a current diagnosis for this admission?: Yes (6) Kidney insufficiency Is this a current diagnosis for this admission?: Yes (7) Rhabdomyolysis Is this a current diagnosis for this admission?: Yes (8) Left arm weakness Is this a current diagnosis for this admission?: Yes (9) Adynamic ileus Is this a current diagnosis for this admission?: Yes - Transfer Medications Transfer Medications: Current Medications Acetaminophen (Tylenol 325 Mg Tablet) 650 mg NG Q4HP PRN PRN Reason: FOR PAIN OR TEMP Stop: 11/14/17 00:58 Last Admin: 10/25/17 08:41 Dose: 650 mg Al Hydrox/Mg Hydrox/Simethicone (Maalox Plus Susp 30 Udcup) 15 ml PO Q6HP PRN PRN Reason: HEARTBURN Stop: 11/14/17 00:58 Last Admin: 10/21/17 07:18 Dose: 15 ml Albuterol/Ipratropium (Duoneb 3 Ml Ampul) 3 ml NEB RTQ6HP PRN PRN Reason: SHORTNESS OF BREATH Stop: 11/22/17 09:27 Last Admin: 10/24/17 09:05 Dose: 3 ml Bisacodyl (Dulcolax 10 Mg Supp.Rect) 10 mg KS DAILY HEMANTH Stop: 11/21/17 13:29 Last Admin: 10/25/17 11:06 Dose: 10 mg Cyclobenzaprine HCl (Flexeril 10 Mg Tablet) 5 mg NG Q8HP PRN PRN Reason: MUSCLE SPASMS Stop: 11/14/17 14:37 Last Admin: 10/25/17 00:38 Dose: 5 mg Enoxaparin Sodium (Lovenox Inj 40 Mg/0.4 Ml Disp.Syrin) 40 mg SUBCUT DAILY HEMANTH Stop: 11/17/17 16:59 Last Admin: 10/25/17 11:07 Dose: 40 mg Multi-Ingredient Cream (Eucerin Cream 114 Gm) 1 applic TP DAILY HEMANTH Stop: 11/15/17 09:59 Last Admin: 10/25/17 11:04 Dose: 1 applic Polyethylene Glycol (Miralax Powder 17 Gm/Packet) 17 gm PO DAILY HEMANTH Stop: 11/19/17 09:59 Last Admin: 10/25/17 11:04 Dose: 17 gm Vit/Iron/Folic Acid/DHA ( Multi + Dha Capsule) 1 cap PO DAILY HEMANTH Stop: 11/16/17 09:59 Last Admin: 10/25/17 11:05 Dose: 1 cap Senna/Docusate Sodium (Senna Plus Tablet) 2 each NG BID HEMANTH Stop: 11/18/17 18:29 Last Admin: 10/25/17 11:05 Dose: 2 each - Allergies Allergies/Adverse Reactions: No Known Allergies Allergy (Unverified 10/14/17 19:52) - Diet/Activity Discharge Diet: As Tolerated Hospital Course Hospital Course: H&P 10/15/2017: NAE JOYA is a 86 year old male with a past medical history of 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 Patient presents 30 minutes following a trip over a rug resulting in fall to the floor hitting his head and right hip resulting in intractable pain to the right hip, no loss of consciousness, or evidence of head trauma. In the emergency room is found to have a right-sided hip fracture. He is referred to the hospitalist for admission. He denies recent medication changes , chest pain palpitations nausea vomiting. HOSPITAL COURSE: The patient [facility] secondary to mechanical fall. (+) R femoral neck fracture repaired by Ortho. The patient required cardiac clearance due to initial elevated BNP (2240). Echocardiogram reveals preserved LVEF, mild diastolic dysfunction, trace MR, mild TR, moderate pulmonary hypertension. The patient was cleared by Single Stayer Operator, Dr. Macedo. Now POST-OP right hip hemiarthroplasty. The patient's lab work indicated a degree of rhabdomyolysis, with his CK peaking at 1307. He was also suffering from an JACQUES, with his Cr peaking at 1.4. He was treated with aggressive IVF fluid resuscitation. Shortly thereafter, the patient started exhibiting signs of volume overload - peripheral edema, crackles, sob. His symptoms were treated with IV lasix. BNP improved to 884 and his symptoms resolved. The patient's lower extremities appeared to show signs of chronic venous stasis and ulceration. Both LEs were edematous with anterior dull erythema, multiple shallow ulcerations, but no drainage. The patient was treated for a possible cellulitis infection with ~1 week of clindamycin. The patient would benefit from a podiatry and/or wound clinic follow up as outpatient Around Hospital Day#6 the patient developed significant abdominal pain and bloating. The patient stated he had not moved his bowels in over a week. KUB revealed an ileus and a large amount of retained stool - no evidence of obstruction. An NG tube was placed to decompress the abdomen and the patient was placed on an aggressive bowel regimen. Over the course of 3 days, the patient was treated with senna, dulcolax, milk of magnesia, lactulose, soapsuds enema, and finally a molasses enema. On HD#9 the patient began having regular bowel movements. By this time, his abdomen was soft and nontender, his abdominal pain had resolved. The patient accidentally removed his NG tube while sleeping, it was not replaced given the resolution of his symptoms. After 10 days in the hospital, the patient was deemed safe for discharge. He was tolerating PT very well, his vital signs were stable, laboratory studies were relatively normal, and his had resumed having normal bowel movements. For any further information regarding this patient's hospitalization, please refer to the EMR. Physical Exam Vital Signs: Temp Pulse Resp BP Pulse Ox 98.7 F 60 16 141/65 H 96 10/25/17 04:49 10/25/17 08:58 10/25/17 08:58 10/25/17 04:49 10/25/17 08:58 Intake & Output 10/24/17 10/25/17 10/26/17 06:59 06:59 06:59 Intake Total 100 518 50 Output Total 1052 650 Balance -952 -132 50 Weight 92.9 kg 93.3 kg Results Laboratory Results: 10/25/17 04:16 10/25/17 04:16 10/25/17 10/25/17 04:16 04:16 WBC 9.5 RBC 3.94 L Hgb 11.5 L Hct 33.8 L MCV 86 MCH 29.3 MCHC 34.1 RDW 14.3 H Plt Count 391 Sodium 138.2 Potassium 4.4 Chloride 98 Carbon Dioxide 31 H Anion Gap 9 BUN 32 H Creatinine 0.98 Est GFR ( Amer) > 60 Est GFR (Non-Af Amer) > 60 Glucose 89 Calcium 8.0 L Phosphorus 3.9 Magnesium 2.2 10/15/17 10/15/17 10/15/17 03:15 03:15 10:30 Creatine Kinase 122 368 H CK-MB (CK-2) 1.31 Troponin I < 0.012 NT-Pro-B Natriuret Pep 10/15/17 10/15/17 10/15/17 10:30 16:55 16:55 Creatine Kinase CK-MB (CK-2) 2.92 Troponin I 0.018 0.036 NT-Pro-B Natriuret Pep 2240 H 10/16/17 10/16/17 10/16/17 06:12 06:12 17:30 Creatine Kinase 923 H 1244 H CK-MB (CK-2) Troponin I 0.064 NT-Pro-B Natriuret Pep 10/16/17 10/16/17 10/16/17 17:35 23:20 23:20 Creatine Kinase 1271 H CK-MB (CK-2) 7.25 H 6.76 H Troponin I 0.056 0.054 NT-Pro-B Natriuret Pep 10/17/17 10/17/17 10/18/17 10:53 10:53 06:15 Creatine Kinase 1307 H CK-MB (CK-2) 7.41 H Troponin I 0.033 0.015 NT-Pro-B Natriuret Pep 2910 H 10/19/17 10/19/17 10/21/17 05:08 05:08 09:53 Creatine Kinase 1032 H CK-MB (CK-2) Troponin I NT-Pro-B Natriuret Pep 1080 H 594 H 10/22/17 10/22/17 10/24/17 06:50 06:50 04:00 Creatine Kinase 99 71 CK-MB (CK-2) Troponin I NT-Pro-B Natriuret Pep 886 H 10/24/17 10/25/17 04:00 04:16 Creatine Kinase CK-MB (CK-2) Troponin I NT-Pro-B Natriuret Pep 1100 H 1010 H Impressions: Hip/Pelvis X-Ray 10/16/17 16:39 IMPRESSION: SATISFACTORY POSTOPERATIVE RIGHT HIP. Chest X-Ray 10/17/17 00:00 IMPRESSION: Peripheral right lung interstitial changes appear more dense on today's exam. Findings may represent pneumonia in the appropriate clinical setting. Head CT 10/17/17 00:00 IMPRESSION: CHRONIC CHANGES OF ATROPHY AND MICROVASCULAR ISCHEMIA. NO ACUTE PROCESS. EVIDENCE OF ACUTE STROKE: NO. KUB X-Ray 10/21/17 00:00 IMPRESSION: NG tube with its tip in the left upper quadrant presumably at the level of the gastric fundus. Other findings as noted above Status: Imported from PACS Plan [facility] Time Spent: Less than 30 Minutes <KVNG NAVAS - Last Filed: 11/02/17 16:22> General Admission Date/PCP: 10/15/17 00:38 Physical Exam Vital Signs: Temp Pulse Resp BP Pulse Ox 98.1 F 76 17 129/64 H 99 10/26/17 11:25 10/26/17 11:25 10/26/17 11:25 10/26/17 11:25 10/26/17 11:25 Results Laboratory Results: 10/26/17 04:11 10/26/17 04:11 10/15/17 10/15/17 10/15/17 03:15 03:15 10:30 Creatine Kinase 122 368 H CK-MB (CK-2) 1.31 Troponin I < 0.012 NT-Pro-B Natriuret Pep 10/15/17 10/15/17 10/15/17 10:30 16:55 16:55 Creatine Kinase CK-MB (CK-2) 2.92 Troponin I 0.018 0.036 NT-Pro-B Natriuret Pep 2240 H 10/16/17 10/16/17 10/16/17 06:12 06:12 17:30 Creatine Kinase 923 H 1244 H CK-MB (CK-2) Troponin I 0.064 NT-Pro-B Natriuret Pep 10/16/17 10/16/17 10/16/17 17:35 23:20 23:20 Creatine Kinase 1271 H CK-MB (CK-2) 7.25 H 6.76 H Troponin I 0.056 0.054 NT-Pro-B Natriuret Pep 10/17/17 10/17/17 10/18/17 10:53 10:53 06:15 Creatine Kinase 1307 H CK-MB (CK-2) 7.41 H Troponin I 0.033 0.015 NT-Pro-B Natriuret Pep 2910 H 10/19/17 10/19/17 10/21/17 05:08 05:08 09:53 Creatine Kinase 1032 H CK-MB (CK-2) Troponin I NT-Pro-B Natriuret Pep 1080 H 594 H 10/22/17 10/22/17 10/24/17 06:50 06:50 04:00 Creatine Kinase 99 71 CK-MB (CK-2) Troponin I NT-Pro-B Natriuret Pep 886 H 10/24/17 10/25/17 10/26/17 04:00 04:16 04:11 Creatine Kinase CK-MB (CK-2) Troponin I NT-Pro-B Natriuret Pep 1100 H 1010 H 1050 H Impressions: Hip/Pelvis X-Ray 10/16/17 16:39 IMPRESSION: SATISFACTORY POSTOPERATIVE RIGHT HIP. Chest X-Ray 10/17/17 00:00 IMPRESSION: Peripheral right lung interstitial changes appear more dense on today's exam. Findings may represent pneumonia in the appropriate clinical setting. Head CT 10/17/17 00:00 IMPRESSION: CHRONIC CHANGES OF ATROPHY AND MICROVASCULAR ISCHEMIA. NO ACUTE PROCESS. EVIDENCE OF ACUTE STROKE: NO. KUB X-Ray 10/21/17 00:00 IMPRESSION: NG tube with its tip in the left upper quadrant presumably at the level of the gastric fundus. Other findings as noted above Provider Note Provider Note: I have discussed this patient in detail with ONEIL Ambrocio. I am in agreement with her evaluation and care.
[2017-10-26] MEDS: MORPHINE SULFATE 10 MG/ML INJ IV PRN (00:28)
[2017-10-26 05:11] LABS: HEMATOCRIT 32.7 % (37.9-51.0); MEAN CORPUSCULAR HEMOGLOBIN 29.2 pg (27.0-33.4); MEAN CORPUSCULAR HGB CONC 33.7 g/dL (32.0-36.0); MEAN CORPUSCULAR VOLUME 87 fl (80-97); PLATELET COUNT 345 10^3/uL (150-450); RED BLOOD COUNT 3.78 10^6/uL (4.35-5.55); RED CELL DISTRIBUTION WIDTH 14.1 % (11.5-14.0)
[2017-10-26 05:47] LABS: ANION GAP 9 (5-19); BLOOD UREA NITROGEN 26 mg/dL (7-20); CALCIUM 7.9 mg/dL (8.4-10.2); CARBON DIOXIDE 30 mmol/L (22-30); CHLORIDE 99 mmol/L (98-107); GLUCOSE 97 mg/dL (75-110); PHOSPHORUS 3.7 mg/dL (2.5-4.5); POTASSIUM 4.3 mmol/L (3.6-5.0); SODIUM 138.4 mmol/L (137-145)
[2017-10-26] MEDS: CLINDAMYCIN 300 MG/D5W RTU 300 MG/50 ML RTUPB IV SCH ×2 (08:31→14:38)
[2017-10-26] MEDS: LACTULOSE SYRUP 20 GM/30 ML UDCUP NG SCH (11:58)
[2017-10-26] MEDS: BISACODYL 10 MG SUPP.RECT PR SCH (11:58)
[2017-10-26] MEDS: SENNOSIDES/DOCUSATE 8.6-50 MG 1 EACH TABLET NG SCH (11:59)
[2017-10-26] MEDS: POLYETHYLENE GLYCOL 3350 POWDER 17 GM/1 PACKET PO SCH (11:59)
[2017-10-26 12:03] VITALS: BP 129/64
[2017-10-26] MEDS: MINERAL OIL/PETROLATUM,WHITE CREAM 114 GM TP SCH (12:51)
[2017-10-26] MEDS: ENOXAPARIN SODIUM INJ 40 MG/0.4 ML DISP.SYRIN SUBCUT SCH (12:52)
[2017-10-26] MEDS: ACETAMINOPHEN 325 MG TABLET NG PRN (12:52)
[2017-10-26] MEDS: PRENATAL VITAMIN W DHA CAPSULE PO SCH (12:52)
== END 2017-10-26 15:30 | DRG 956 ==
LOC: ER 19:11 → EH 10-15 00:38 → 5 10-15 02:23
PROVIDERS: ADMIT Internal Medicine; ATTEND Internal Medicine
PROC: 0SRR0JZ Replacement of Right Hip Joint, Femoral Surface with Synthetic Substitute, Open Approach (ICD-10-PCS; principal; 2017-10-16 11:00)
PROC: 0D9670Z Drainage of Stomach with Drainage Device, Via Natural or Artificial Opening (ICD-10-PCS; 2017-10-22)
DX: S72.051A Unspecified fracture of head of right femur, initial encounter for closed fracture (principal); T79.6XXA Traumatic ischemia of muscle, initial encounter; L03.115 Cellulitis of right lower limb; C85.90 Non-Hodgkin lymphoma, unspecified, unspecified site; I50.32 Chronic diastolic (congestive) heart failure; K56.7 Ileus, unspecified; N17.9 Acute kidney failure, unspecified; L97.919 Non-pressure chronic ulcer of unspecified part of right lower leg with unspecified severity; L97.929 Non-pressure chronic ulcer of unspecified part of left lower leg with unspecified severity; S09.90XA Unspecified injury of head, initial encounter; W01.0XXA Fall on same level from slipping, tripping and stumbling without subsequent striking against object, initial encounter; Y93.89 Activity, other specified; Y92.009 Unspecified place in unspecified non-institutional (private) residence as the place of occurrence of the external cause; Y99.9 Unspecified external cause status; J44.9 Chronic obstructive pulmonary disease, unspecified; R53.1 Weakness; I10 Essential (primary) hypertension; I87.2 Venous insufficiency (chronic) (peripheral); N28.9 Disorder of kidney and ureter, unspecified
CPT/HCPCS: 01210; 36415; 36600; 70450; 71045; 74018; 80048; 80053; 81001; 82550; 82553; 82803; 82962; 83036; 83735; 83880; 84100; 84484; 85025; 85027; 85610; 85730; 86850; 86900; 86901; 88305; 88311; 88342; 93005; 93010; 93306; 94640; 94667; 94799; 96374; 96375; 99285; C1776; C9290; G8978-GP; G8979-GP; G8987-GO; G8988-GO; J0690; J1170; J1644; J1650; J1940; J2250; J2270; J2405; J2550; J2704; J3010; J3490; J7030; J7120; J7620

== ENCOUNTER 2017-12-31 03:24 | Emergency (ER) | payer SELFPAY ==
[2017-12-31] MEDS ORDERED: NITROGLYCERIN 0.4 MG/TAB 25 TAB/BOTTLE ONE (03:55)
[2017-12-31] MEDS ORDERED: ASPIRIN 81 MG TABLET, CHEWABLE ONE (03:55)
[2017-12-31] MEDS ORDERED: ASPIRIN 325 MG TABLET PO ONE (03:59)
[2017-12-31] MEDS ORDERED: NITROGLYCERIN 0.4 MG/TAB 25 TAB/BOTTLE SL PRN (03:59)
[2017-12-31] MEDS ORDERED: ASPIRIN 81 MG TABLET, CHEWABLE PO ONE (04:05)
--- NOTE | 2017-12-31 04:05 | ER Document Report ---
ED General - General Stated Complaint: CHEST CONGESTION Time Seen by Provider: 12/31/17 03:56 Notes: Patient is a 87-year-old male who is brought in by embolus from the custodial due to a complaint of chest tightness and some dyspnea. Patient states of the paramedics that he thinks is just a COPD. I asked him when he started feeling short of breath he said "I am always little bit short of breath". I asked him if he is having chest pain and he says "I have a lot of chest tightness. When I asked him if he is had this before the COPD he answers "not really". Symptoms started tonight. No vomiting. No history of coronary disease. Does have history of former smoker and COPD. He was in about 2 and half months ago to the due to a broken hip. He says he has been recovering well from that and has no concerns from that. Patient says his chest tightness is substernal in the middle of his chest. Does not radiate. Is not made worse with taking a deep breath. No pain radiating to the back. No other complaints at this time. TRAVEL OUTSIDE OF THE [place] IN LAST 30 DAYS: No - Related Data Allergies/Adverse Reactions: No Known Allergies Allergy (Verified 12/31/17 05:01) Past Medical History - Social History Smoking Status: Former Smoker Frequency of alcohol use: None Drug Abuse: None Family History: COPD - Past Medical History Cardiac Medical History: Reports: Hx Congestive Heart Failure, Hx Hypertension Pulmonary Medical History: Reports: Hx COPD Renal/ Medical History: Denies: Hx Peritoneal Dialysis Malignancy Medical History: Reports Hx Lymphoma - Immunizations Hx Diphtheria, Pertussis, Tetanus Vaccination: Yes Review of Systems - Review of Systems Notes: My Normal Review Basic REVIEW OF SYSTEMS: CONSTITUTIONAL : Denies fever, chills, or sweats. Denies recent illness. EENT: Denies eye, ear, throat, or mouth pain or symptoms. Denies nasal or sinus congestion. CARDIOVASCULAR: Chest tightness. RESPIRATORY: Some mild shortness of breath. GASTROINTESTINAL: Denies abdominal pain. Denies nausea, vomiting, or diarrhea. Denies constipation. Last BM: GENITOURINARY: Denies difficulty urinating, painful urination, burning, frequency, or blood in urine. FEMALE GENITOURINARY: Denies vaginal bleeding, abnormal or irregular periods. LMP: MUSCULOSKELETAL: Denies neck or back pain or joint pain or swelling. NEUROLOGICAL: Denies altered mental status or loss of consciousness. Denies headache. Denies weakness or paralysis or loss of use of either side. Denies problems with gait or speech. Denies sensory or motor loss. ALL OTHER SYSTEMS REVIEWED AND NEGATIVE. Physical Exam - Vital signs Vitals: Temp 98.2 F 12/31/17 03:32 - Notes Notes: General Appearance: Well nourished, alert, cooperative, no acute distress, no obvious discomfort. Vitals: reviewed, See vital signs table. Eyes: PERRL, EOMI, Conjuctiva clear Mouth: No decreasd moisture Throat: No tonsillar inflammation, No airway obstruction, No lymphadenopathy Neck: Supple, no neck tenderness, No thyromegaly Lungs: No wheezing, No rales, No rhonci, No accessory muscle use, good air exchange bilaterally. Lungs are completely clear to auscultation. Heart: Normal rate, Regular rythm, No murmur, no rub Abdomen: Normal BS, soft, No rigidity, No abdominal tenderness, No guarding, no rebound, no abdominal masses, no organomegaly Extremities: strength 5/5 in all extremities, good pulses in all extremities, no swelling or tenderness in the extremities, no edema. Skin: warm, dry, appropriate color, no rash Neuro: speech clear, oriented x 3, normal affect, responds appropriately to questions. Course - Re-evaluation Re-evalutation: 12/31/17 04:04 I evaluate the patient. He is having some chest tightness. He thinks is related to COPD however his lung stauffer are clear without wheezing. His EKG shows some mild ST segment elevation in the lateral precordial leads as well as also in lead II. There is no reciprocal ST segment depressions however the elevation is new in comparison to his old EKG from October 17, 2017. I have called [facility] to speak with interventional cardiology to get the recommendations and have them evaluate EKG as to whether not a want us to call this is a STEMI. Currently we will hold off calling STEMI as the patient clinically looks very well and comfortable and I do not have reciprocal ST is segment depressions. I will wait to call us to me until I hear back from the seo associate. I did speak with the nurse at the transfer center for [facility] and she will get me in touch with the seo associate. 12/31/17 04:44 The transfer center call me back and told me I would have to call the stimulator and speak with the ER physician at [facility]. I did this and spoke with Dr. Lombardi. She came to Dr. Hauser's pager number and asked me to fax her the EKGs and they would place them in the system where the seo associate can access them. I have faxed her the EKGs. I have attempted to call Dr. Hauser. I got his pager and if placement number for him to call me back. Patient's pain is immediate relief with nitro. He is now on Nitropaste. Repeat EKG post resolution of chest tightness is unchanged comparison to his initial EKG. 12/31/17 04:[address] Hauser, building services coordinator at [facility]. He says being that the patient is pain-free he would not go forward with thrombolytic therapy. He said to place patient on Nitropaste which we are he have. He said to start a heparin drip and await results of cardiac enzymes. 12/31/17 05:44 Fortunately patient's initial troponin is negative however patient's symptoms of chest tightness started just prior to arrival and therefore may take some time for the troponin to elevate. Due to the concerning EKG changes patient will need to be further evaluated by cardiology. Chest x-ray is read as unchanged airway opacity. The of course that they cannot rule out an underlying pneumonia however the patient has no fever and he is not coughing and his symptoms are resolved with nitro and therefore I think pneumonia is unlikely. Patient continues to remain chest pain-free with the Nitropaste in place. I have spoken with Dr. Oseguera at [facility] who will check to see if they have beds for transfer. 12/31/17 05:46 - Vital Signs Vital signs: Temp Pulse Resp BP Pulse Ox 98.2 F 15 107/49 L 96 12/31/17 03:32 12/31/17 06:30 12/31/17 06:30 12/31/17 06:30 - Laboratory Result Diagrams: 12/31/17 03:55 12/31/17 03:55 Laboratory results interpreted by me: 12/31/17 12/31/17 03:55 03:55 WBC 18.6 H RDW 14.7 H Seg Neutrophils % 83.0 H Lymphocytes % 8.0 L Absolute Neutrophils 15.4 H Absolute Monocytes 1.6 H Carbon Dioxide 31 H BUN 37 H Glucose 257 H ALT 18 L Total Protein 6.0 L Albumin 3.1 L Discharge - Discharge Disposition: [facility]
[2017-12-31 04:07] LABS: ABSOLUTE BASOPHILS # (AUTO) 0.1 10^3/uL (0.0-0.2); ABSOLUTE LYMPHOCYTES (AUTO) 1.5 10^3/uL (0.5-4.7); ABSOLUTE MONOCYTES (AUTO) 1.6 10^3/uL (0.1-1.4); ABSOLUTE NEUT (AUTO) 15.4 10^3/uL (1.7-8.2); BASOPHILS % (AUTO) 0.4 % (0-2); EOSINOPHILS % (AUTO) 0.2 % (0-6); HEMATOCRIT 41.8 % (37.9-51.0); HEMOGLOBIN 14.1 g/dL (13.5-17.0); MEAN CORPUSCULAR HGB CONC 33.7 g/dL (32.0-36.0); MEAN CORPUSCULAR VOLUME 86 fl (80-97); MONOCYTES % (AUTO) 8.4 % (3-13); PLATELET COUNT 301 10^3/uL (150-450); RED BLOOD COUNT 4.85 10^6/uL (4.35-5.55); RED CELL DISTRIBUTION WIDTH 14.7 % (11.5-14.0); TOTAL CELLS COUNTED % (AUTO) 100 %; WHITE BLOOD COUNT 18.6 10^3/uL (4.0-10.5)
[2017-12-31 04:29] LABS: ALANINE AMINOTRANSFERASE 18 U/L (21-72); ALBUMIN 3.1 g/dL (3.5-5.0); ALKALINE PHOSPHATASE 71 U/L (38-126); ANION GAP 9 (5-19); ASPARTATE AMINO TRANSFERASE 24 U/L (17-59); BILIRUBIN,DIRECT 0.2 mg/dL (0.0-0.4); BILIRUBIN,TOTAL 0.8 mg/dL (0.2-1.3); BLOOD UREA NITROGEN 37 mg/dL (7-20); CALCIUM 8.8 mg/dL (8.4-10.2); CARBON DIOXIDE 31 mmol/L (22-30); CHLORIDE 98 mmol/L (98-107); GLUCOSE 257 mg/dL (75-110); POTASSIUM 4.8 mmol/L (3.6-5.0); SODIUM 137.7 mmol/L (137-145)
[2017-12-31] MEDS ORDERED: NITROGLYCERIN 2% OINTMENT 1 GM PACKET TP ONE (04:29)
--- NOTE | 2017-12-31 04:36 | RADIOLOGY REPORT (SQ) ---
EXAM DESCRIPTION: XR CHEST 1 VIEW COMPLETED DATE/TME: 12/31/2017 03:59 CLINICAL HISTORY: chest pain COMPARISON: Report from 10/17/2017 FINDINGS: Single frontal view of the chest. Atherosclerotic calcification and tortuosity of thoracic aorta. Heart is not enlarged. Left-sided Mediport. Right upper lung peripheral interstitial and alveolar opacities. No pneumothorax or large effusion. No lobar consolidation. Osseous structures are stable. Upper abdominal soft tissues are unremarkable. IMPRESSION: 1. Right upper lung interstitial opacities are again identified. This may be related to chronic lung disease however superimposed acute pneumonic process not excluded. Continued follow-up to resolution recommended.
[2017-12-31] MEDS ORDERED: HEPARIN SOD (PORCINE) 1,000 UNIT/ML 10 ML VIAL IV ONE (04:49)
[2017-12-31] MEDS ORDERED: HEPARIN SODIUM,PORCINE/D5W 25,000 UNIT/250 ML RTUINJ IV PRN (04:49)
[2017-12-31 07:32] LABS: INTERNATIONAL RATION (INR) 1.02; PROTHROMBIN TIME 13.9 SEC (11.4-15.4)
[2017-12-31 10:09] VITALS: BP 115/66
--- NOTE | 2017-12-31 10:21 | ER Document Report ---
Doctor's Note Notes: [facility] The patient is alert, in a good mood. Vital signs are stable. He is stable for transfer.
--- NOTE | 2017-12-31 12:44 | EKG REPORT ---
SEVERITY:- ABNORMAL ECG - SINUS OR ECTOPIC ATRIAL RHYTHM ST ELEVATION, PROBABLE LATERAL INJURY PROBABLE POSTERIOR INFARCT BORDERLINE ST ELEVATION, INFERIOR LEADS : Confirmed by: Jennifer Moreno MD 31-Dec-2017 12:43:38
== END 2017-12-31 10:25 | disposition short-term general hospital (02) ==
LOC: ER 03:24
DX: R07.9 Chest pain, unspecified (principal); R06.00 Dyspnea, unspecified; J44.9 Chronic obstructive pulmonary disease, unspecified; Z87.891 Personal history of nicotine dependence; I10 Essential (primary) hypertension
CPT/HCPCS: 93005; 99285; 96365; 36415; 85025; 85610; 85730; 80053; 84484; 71045; 93010; J1644 ×2

== ENCOUNTER 2018-03-04 20:56 | Emergency (ER) | payer MEDICARE, MEDICAID ==
[2018-03-04] MEDS ORDERED: BUPIVACAINE HCL 0.5 % INJ/PF 30 ML SDV INJ ONE (22:15)
[2018-03-04] MEDS ORDERED: LIDOCAINE 2%/EPINEPHRINE INJ 20 ML VIAL INJ ONE (22:15)
[2018-03-05 00:36] LABS: ABSOLUTE BASOPHILS # (AUTO) 0.1 10^3/uL (0.0-0.2); ABSOLUTE EOSINOPHILS # (AUTO) 0.9 10^3/uL (0.0-0.6); ABSOLUTE LYMPHOCYTES (AUTO) 2.2 10^3/uL (0.5-4.7); ABSOLUTE MONOCYTES (AUTO) 0.8 10^3/uL (0.1-1.4); ABSOLUTE NEUT (AUTO) 8.4 10^3/uL (1.7-8.2); HEMATOCRIT 35.9 % (37.9-51.0); LYMPHOCYTES % (AUTO) 17.9 % (13-45); MEAN CORPUSCULAR HEMOGLOBIN 28.6 pg (27.0-33.4); MEAN CORPUSCULAR HGB CONC 33.6 g/dL (32.0-36.0); MEAN CORPUSCULAR VOLUME 85 fl (80-97); MONOCYTES % (AUTO) 6.6 % (3-13); PLATELET COUNT 260 10^3/uL (150-450); RED BLOOD COUNT 4.21 10^6/uL (4.35-5.55); RED CELL DISTRIBUTION WIDTH 14.8 % (11.5-14.0); SEGMENTED NEUTROPHILS % (AUTO) 67.5 % (42-78); TOTAL CELLS COUNTED % (AUTO) 100 %; WHITE BLOOD COUNT 12.4 10^3/uL (4.0-10.5)
--- NOTE | 2018-03-05 01:14 | ER Document Report ---
ED General - General Chief Complaint: Nose Bleed Stated Complaint: NOSE BLEED Time Seen by Provider: 03/04/18 22:04 Notes: Patient is a pleasant 87-year-old male presents with complaint of nosebleed. He said bleeding has occurred several times this week and always occurs from the left nare. Today it occurred and will not stop and therefore he came to the ER. Patient states that nursing facility. Patient had a gauze soaked with TXA placed in the left nare. Bleeding has since stopped. He has no other complaints at this time. TRAVEL OUTSIDE OF THE [place] IN LAST 30 DAYS: No - Related Data Allergies/Adverse Reactions: No Known Allergies Allergy (Verified 12/31/17 05:01) Past Medical History - Social History Smoking Status: Never Smoker Chew tobacco use (# tins/day): No Frequency of alcohol use: None Drug Abuse: None Family History: COPD Patient has suicidal ideation: No Patient has homicidal ideation: No - Past Medical History Cardiac Medical History: Reports: Hx Congestive Heart Failure, Hx Hypertension Pulmonary Medical History: Reports: Hx COPD Renal/ Medical History: Denies: Hx Peritoneal Dialysis Malignancy Medical History: Reports Hx Lymphoma - Immunizations Hx Diphtheria, Pertussis, Tetanus Vaccination: Yes Review of Systems - Review of Systems Notes: My Normal Review Basic REVIEW OF SYSTEMS: CONSTITUTIONAL : Denies fever, chills, or sweats. Denies recent illness. EENT: Nosebleed HEMATOLOGIC : On Eliquis NEUROLOGICAL: Denies altered mental status or loss of consciousness. Denies headache. Denies weakness or paralysis or loss of use of either side. Denies problems with gait or speech. Denies sensory or motor loss. ALL OTHER SYSTEMS REVIEWED AND NEGATIVE. Physical Exam - Vital signs Vitals: Temp Pulse Resp BP Pulse Ox 97.7 F 85 20 145/65 H 100 03/04/18 21:02 03/04/18 21:02 03/04/18 21:02 03/04/18 21:02 03/04/18 21:02 - Notes Notes: General Appearance: Well nourished, alert, cooperative, no acute distress, no obvious discomfort. Appearing. Vitals: reviewed, See vital signs table. Head: no swelling or tenderness to the head Eyes: PERRL, EOMI, Conjuctiva clear Mouth: Dry blood in mouth. Nares: Right nares clear. Left nare has some dried blood. No clots and they are on evaluation at this time. No active bleeding at this time. I do not see the anterior source to cauterize at this time. Throat: No tonsillar inflammation, No airway obstruction, No lymphadenopathy Neck: Supple, no neck tenderness, No thyromegaly Lungs: No wheezing, No rales, No rhonci, No accessory muscle use, good air exchange bilaterally. Heart: Normal rate, Regular rythm, No murmur, no rub Skin: warm, dry, appropriate color, no rash Neuro: speech clear, oriented x 3, normal affect, responds appropriately to questions. Course - Re-evaluation Re-evalutation: 03/05/18 01:19 Patient has not had any bleeding since arriving to the ED. TXA the paramedics applied seems to have worked appropriately. I did place some lidocaine with epi in the nose to help numb the nose in case I need to place packing. Patient is now been watched for several hours and had no recurrence of bleeding. He takes Eliquis for A. fib. He said he bled several times throughout this week and therefore I think the benefits of holding the Eliquis outweigh the risks. Discussed with the patient he is agreeable to it. We will have him hold the Eliquis for the weekend and restart again on Wednesday. I will refer him to ENT. I encouraged him to call the office on Wednesday for follow-up appointment. He is to return to ER if he has recurrent bleeding. Patient agrees with plan and will be discharged home. Dictation of this chart was performed using voice recognition software; therefore, there may be some unintended grammatical errors. - Vital Signs Vital signs: Temp Pulse Resp BP Pulse Ox 97.7 F 85 20 145/65 H 100 03/04/18 21:02 03/04/18 21:02 03/04/18 21:02 03/04/18 21:02 03/04/18 21:02 - Laboratory Result Diagrams: 03/05/18 00:24 Laboratory results interpreted by me: 03/05/18 00:24 WBC 12.4 H RBC 4.21 L Hgb 12.0 L Hct 35.9 L RDW 14.8 H Eosinophils % 7.0 H Absolute Neutrophils 8.4 H Absolute Eosinophils 0.9 H Discharge - Discharge Clinical Impression: Epistaxis Condition: Good Disposition: HOME, SELF-CARE Additional Instructions: Please hold your Eliquis until Wednesday. You can restart it Wednesday Evening. Please return to the ER if you have recurrent nose bleeding that does not improve with holding pressure to your nose. Please call Dr. Cole's office Wednesday to make a close follow up appointment. Referrals: TOLU COLE DO [ASSOCIATE] - 03/07/18
[2018-03-05 07:04] VITALS: BP 140/83
== END 2018-03-05 07:30 | disposition home or self-care (01) ==
LOC: ER 20:56
DX: R04.0 Epistaxis (principal); I10 Essential (primary) hypertension; J44.9 Chronic obstructive pulmonary disease, unspecified; I48.91 Unspecified atrial fibrillation; Z79.01 Long term (current) use of anticoagulants; Z85.72 Personal history of non-Hodgkin lymphomas
CPT/HCPCS: 99284; 36415; 85025; J3490 ×2

== ENCOUNTER 2018-03-18 01:38 | Emergency (ER) | payer MEDICAID, MEDICARE ==
--- NOTE | 2018-03-18 02:20 | ER Document Report ---
ED ENT - General Mode of Arrival: Medic Information source: Patient TRAVEL OUTSIDE OF THE [place] IN LAST 30 DAYS: No - General Chief Complaint: Nose Bleed Stated Complaint: NOSE BLEED Time Seen by Provider: 03/18/18 02:14 Notes: 87-year-old male who presents to the emergency department today with complaints of a nosebleed. Patient states he has had some nose bleeds in the past that have required Rhino Rocket placement. Upon arrival here, the patient already has a large amount of gauze lodged in his left nostril which has successfully stopped the bleeding. Bleeding is controlled upon arrival. Patient is on Eliquis and "something else" for blood thinning. Patient denies any trauma or other injuries to the nose, however he does state that he blew his nose today just prior to this bleeding beginning. Patient denies any pain. 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 - Immunizations Hx Diphtheria, Pertussis, Tetanus Vaccination: Yes Review of Systems - Review of Systems Constitutional: No symptoms reported EENT: See HPI, Other - nose bleed Cardiovascular: No symptoms reported Respiratory: No symptoms reported Gastrointestinal: No symptoms reported Genitourinary: No symptoms reported Male Genitourinary: No symptoms reported Musculoskeletal: No symptoms reported Skin: No symptoms reported Hematologic/Lymphatic: No symptoms reported Neurological/Psychological: No symptoms reported -: Yes All other systems reviewed and negative Physical Exam - Vital signs Vitals: Pulse Ox 100 03/18/18 02:06 - Notes Notes: PHYSICAL EXAM GENERAL: Alert, interacts well. No acute distress. HEAD: Normocephalic, atraumatic. EYES: Pupils equal, round, and reactive to light. Extraocular movements intact. ENT: Oral mucosa moist, tongue midline. No blood in posterior oropharynx. Gauze removed from the left nare along with a very large clot. There is no active bleeding at this time. NECK: Full range of motion. Supple. Trachea midline. LUNGS: Clear to auscultation bilaterally, no wheezes, rales, or rhonchi. No respiratory distress. HEART: Regular rate and rhythm. No murmurs, gallops, or rubs. ABDOMEN: Soft, non-tender. Non-distended. Bowel sounds present in all 4 quadrants. No guarding, rigidity, or rebound. EXTREMITIES: Moves all 4 extremities spontaneously. No edema, radial and dorsalis pedis pulses 2/4 bilaterally. No cyanosis. NEUROLOGICAL: Alert and oriented x3. Normal speech. PSYCH: Normal affect, normal mood. SKIN: Warm, dry, normal turgor. No rashes or lesions noted. (JAGRUTI SHEPPARD) Course - Re-evaluation Re-evalutation: 03/18/18 07:53 Bleeding stopped, restarted once, before I could start holding pressure the bleeding stopped again, observe for over 2 hours. Discharged home. (JANE KUNZ) - Vital Signs Vital signs: Temp Pulse Resp BP Pulse Ox 97.8 F 17 119/75 98 03/18/18 07:20 03/18/18 07:19 03/18/18 07:20 03/18/18 07:20 Discharge - Discharge Clinical Impression: Anterior epistaxis Condition: Stable Disposition: HOME, SELF-CARE Additional Instructions: Nosebleed Instructions There is a significant chance of re-bleeding following a nosebleed. Proper care makes this less likely. Do not touch the nose for 24 hours. Do not blow the nose forcefully for one week. After 24 hours, gently apply Vaseline ointment to both nostrils with the tip of a finger, three times a day, for one week. It's normal to have a bloody mucous discharge for a few days. If active bleeding recurs, blow all the blood from the nose, then sit quietly and pinch the nose as firmly as possible for 10 minutes. If this does not stop the bleeding, return for further care. If packing was left in the nose and it starts to come out of the nostril, either tuck it back in or cut it off. Don't pull it out. Return for recheck and removal of the packing when instructed. Persons with frequent nosebleeds should avoid aspirin (unless prescribed for another reason). Humidity in the bedroom, and petroleum jelly applied to the nostrils at night may help. Referrals: MARLENE ARREDONDO MD [Primary Care Provider] - Follow up as needed Scribe Attestation: 03/18/18 07:53 I personally performed the services described in the documentation, reviewed and edited the documentation which was dictated to the scribe in my presence, and it accurately records my words and actions. (JANE KUNZ) Scribe Documentation - Scribe Written by Luis Armando:: Luis Armando Fabian, 03/18/2018 [id number] acting as scribe for :: Hood
[2018-03-18 07:43] VITALS: BP 119/75
== END 2018-03-18 07:25 | disposition home or self-care (01) ==
LOC: ER 01:38
DX: R04.0 Epistaxis (principal); Z79.01 Long term (current) use of anticoagulants; J44.9 Chronic obstructive pulmonary disease, unspecified; I10 Essential (primary) hypertension; Z85.72 Personal history of non-Hodgkin lymphomas
CPT/HCPCS: 99283

== ENCOUNTER 2018-03-18 08:34 | Emergency (ER) | payer MEDICAID, MEDICARE ==
[2018-03-18] MEDS ORDERED: NORMAL SALINE 500 ML IV ONE (08:49)
--- NOTE | 2018-03-18 09:11 | ER Document Report ---
ED General - General Chief Complaint: Dizziness Stated Complaint: DIZZINESS Time Seen by Provider: 03/18/18 08:48 TRAVEL OUTSIDE OF THE [place] IN LAST 30 DAYS: No - HPI Notes: Patient is a 87-year-old male that presents to the emergency department for chief complaint of lightheadedness. Patient was just discharged from the emergency room after having a nosebleed. He did receive Afrin and TXA which stopped his bleeding. He does not have any nasal packing in place. Patient states he was sitting in a wheelchair and was hearing people talking around him but did not want to respond because his legs were cramping and he was in pain. Nursing staff states that patient was awake and sitting and they are attempting to get his attention but he would not respond. They were concerned for altered mental status. EMS reports when they arrived on scene patient was behaving normally. group home also stated they took a blood pressure that was low during his period of nonresponsiveness. There was no syncope fall or head injury. Patient states that when he sits in a wheelchair he usually feels some lightheadedness. He states he only does not feel lightheaded when he is sitting or lying back slightly. He states he does not sit in a wheelchair for that reason. He does remember people talking around him and remembers them talking to him he states he did not want to respond to them. Past Medical History: CHF, hyponatremia Past Surgical History: Reviewed in chart Social History: Denies tobacco and alcohol Family History: Reviewed and noncontributory for presenting illness Allergies: Reviewed, see documented allergy list. REVIEW OF SYSTEMS: CONSTITUTIONAL : No fever No chills No diaphoresis No recent illness EENT: No vision changes No congestion No sore throat CARDIOVASCULAR: No chest pain No palpitations RESPIRATORY: No shortness of breath No cough No difficulty breathing GASTROINTESTINAL: No abdominal pain No nausea No vomiting No diarrhea GENITOURINARY: No dysuria No hematuria No difficulty urinating MUSCULOSKELETAL: No back pain No leg pain No arm pain SKIN: No rashes No lesions LYMPHATIC: No swollen, enlarged glands. NEUROLOGICAL: lightheadedness No headache No weakness No paresthesias PSYCHIATRIC: No anxiety No depression PHYSICAL EXAMINATION: Vital signs reviewed, nursing noted reviewed. GENERAL: Well-appearing, well-nourished and in no acute distress. HEAD: Atraumatic, normocephalic. EYES: Eyes appear normal, extraocular movements intact, sclera anicteric, conjunctiva are normal. ENT: Dried blood around left nares with no active epistaxis, nares patent, oropharynx clear without exudates. Mildly dry mucous membranes. NECK: Normal range of motion, supple without lymphadenopathy LUNGS: Breath sounds clear to auscultation bilaterally and equal. No wheezes rales or rhonchi. HEART: Regular rate and rhythm without murmurs ABDOMEN: Soft, nontender, normoactive bowel sounds. No rebound, guarding, or rigidity. No masses appreciated. EXTREMITIES: Nontender, good range of motion, no pitting or edema. NEUROLOGICAL: No focal neurological deficits. Moves all extremities spontaneously Motor and sensory grossly intact on exam. PSYCH: Normal mood, normal affect. SKIN: Warm, Dry, normal turgor, chronic venous stasis color changes to lower extremities - Related Data Allergies/Adverse Reactions: No Known Allergies Allergy (Verified 12/31/17 05:01) Past Medical History - Social History Smoking Status: Unknown if Ever Smoked Family History: COPD Patient has suicidal ideation: No Patient has homicidal ideation: No - Past Medical History Cardiac Medical History: Reports: Hx Congestive Heart Failure, Hx Hypertension Pulmonary Medical History: Reports: Hx COPD Renal/ Medical History: Denies: Hx Peritoneal Dialysis Malignancy Medical History: Reports Hx Lymphoma - Immunizations Hx Diphtheria, Pertussis, Tetanus Vaccination: Yes Physical Exam - Vital signs Vitals: Resp 13 03/18/18 09:01 Course - Re-evaluation Re-evalutation: 03/18/18 09:11 Vitals reviewed. Nursing notes reviewed. Patient is awake, conversational and in no acute distress. He currently has no complaints. He is asking for a drink which was provided. Patient is also currently hungry. His epistaxis has not returned. Chart review did show a history of hyponatremia and lab work will be obtained to evaluate his electrolytes. He also recently had epistaxis and is on Eliquis therefore CBC will be obtained to evaluate for acute anemia. Patient given a small fluid bolus for his apparent dehydration with dry mucous membr anes. He has congestive heart failure and therefore aggressive hydration not indicated. 03/18/18 09:42 Patient has normal electrolytes. He does have slight elevation in his creatinine which is chronic and unchanged. He is tolerating oral intake. His diastolic blood pressure did drop however patient did not become symptomatic during his orthostatics. He is otherwise hemodynamically stable. He did not have any loss of consciousness during this episode. He has not had any rebleeding of his nose. He was discharged home in stable condition. Laboratory 03/18/18 03/18/18 08:58 08:58 WBC 12.5 H RBC 3.94 L Hgb 11.3 L Hct 33.4 L MCV 85 MCH 28.6 MCHC 33.7 RDW 15.4 H Plt Count 252 Seg Neutrophils % 65.5 Lymphocytes % 20.5 Monocytes % 6.6 Eosinophils % 6.6 H Basophils % 0.8 Absolute Neutrophils 8.2 Absolute Lymphocytes 2.6 Absolute Monocytes 0.8 Absolute Eosinophils 0.8 H Absolute Basophils 0.1 Sodium 142.7 Potassium 3.9 Chloride 105 Carbon Dioxide 29 Anion Gap 9 BUN 39 H Creatinine 1.36 H Est GFR ( Amer) > 60 Est GFR (Non-Af Amer) 50 L Glucose 138 H Calcium 8.9 - Vital Signs Vital signs: Temp Pulse Resp BP Pulse Ox 97.5 F 80 16 105/60 95 03/18/18 09:04 03/18/18 09:11 03/18/18 09:08 03/18/18 09:11 03/18/18 09:08 - Laboratory Result Diagrams: 03/18/18 08:58 03/18/18 08:58 Laboratory results interpreted by me: 03/18/18 03/18/18 08:58 08:58 WBC 12.5 H RBC 3.94 L Hgb 11.3 L Hct 33.4 L RDW 15.4 H Eosinophils % 6.6 H Absolute Eosinophils 0.8 H BUN 39 H Creatinine 1.36 H Est GFR (Non-Af Amer) 50 L Glucose 138 H Discharge - Discharge Clinical Impression: Light-headed feeling, Orthostatic hypotension Condition: Stable Disposition: HOME, SELF-CARE Instructions: Orthostatic Hypotension ([facility]) Additional Instructions: Please return to the emergency department if you have any worsening, or concern of your symptoms. Please return to the emergency department if you develop chest pain, difficulty breathing, severe abdominal pain, or ongoing vomiting. Please follow-up with your primary care physician in 2-3 days and any other recommended physicians. If prescribed, take all medications as directed. If you have any questions or concerns do not hesitate to return the emergency department for evaluation. Referrals: MARLENE ARREDONDO MD [Primary Care Provider] - Follow up as needed
[2018-03-18 09:13] VITALS: BP 115/75
[2018-03-18 09:17] LABS: ABSOLUTE BASOPHILS # (AUTO) 0.1 10^3/uL (0.0-0.2); ABSOLUTE EOSINOPHILS # (AUTO) 0.8 10^3/uL (0.0-0.6); ABSOLUTE LYMPHOCYTES (AUTO) 2.6 10^3/uL (0.5-4.7); ABSOLUTE MONOCYTES (AUTO) 0.8 10^3/uL (0.1-1.4); ABSOLUTE NEUT (AUTO) 8.2 10^3/uL (1.7-8.2); BASOPHILS % (AUTO) 0.8 % (0-2); EOSINOPHILS % (AUTO) 6.6 % (0-6); HEMATOCRIT 33.4 % (37.9-51.0); HEMOGLOBIN 11.3 g/dL (13.5-17.0); LYMPHOCYTES % (AUTO) 20.5 % (13-45); MEAN CORPUSCULAR HEMOGLOBIN 28.6 pg (27.0-33.4); MEAN CORPUSCULAR HGB CONC 33.7 g/dL (32.0-36.0); MEAN CORPUSCULAR VOLUME 85 fl (80-97); MONOCYTES % (AUTO) 6.6 % (3-13); PLATELET COUNT 252 10^3/uL (150-450); RED BLOOD COUNT 3.94 10^6/uL (4.35-5.55); RED CELL DISTRIBUTION WIDTH 15.4 % (11.5-14.0); SEGMENTED NEUTROPHILS % (AUTO) 65.5 % (42-78); TOTAL CELLS COUNTED % (AUTO) 100 %; WHITE BLOOD COUNT 12.5 10^3/uL (4.0-10.5)
[2018-03-18 09:37] LABS: ANION GAP 9 (5-19); BLOOD UREA NITROGEN 39 mg/dL (7-20); CALCIUM 8.9 mg/dL (8.4-10.2); CARBON DIOXIDE 29 mmol/L (22-30); CHLORIDE 105 mmol/L (98-107); GLUCOSE 138 mg/dL (75-110); POTASSIUM 3.9 mmol/L (3.6-5.0); SODIUM 142.7 mmol/L (137-145)
== END 2018-03-18 10:45 | disposition home or self-care (01) ==
LOC: ER 08:34
DX: R42 Dizziness and giddiness (principal); I11.0 Hypertensive heart disease with heart failure; I50.9 Heart failure, unspecified; R79.89 Other specified abnormal findings of blood chemistry; R25.2 Cramp and spasm; J44.9 Chronic obstructive pulmonary disease, unspecified; Z85.72 Personal history of non-Hodgkin lymphomas; Z79.01 Long term (current) use of anticoagulants
CPT/HCPCS: 99284; 36415; 85025; 80048; J7040

== ENCOUNTER 2018-03-27 11:06 | Emergency (ER) | payer MEDICARE, MEDICAID ==
[2018-03-27] MEDS ORDERED: OXYMETAZOLINE HCL 0.05% NASAL SPRAY 15 ML BOTTLE NASL ONE (11:31)
--- NOTE | 2018-03-27 11:34 | ER Document Report ---
HPI - HPI Time Seen by Provider: 03/27/18 11:18 Pain Level: Denies Notes: Patient is an 87-year-old male with a history of A. fib who presents to the emergency department complaining of left-sided nosebleed which she has had recurrently recently. Patient states that he is currently on Eliquis, Plavix, and aspirin daily. Patient states that the nursing facility did pack his nose with just a gauze dressing. Patient believes that his nose may be still bleeding, but has not noticed as much going to the back of his throat as it was initially. He has otherwise been eating and drinking without difficulty. No injury. Denies drug allergies. Denies any headache, fever, head injury, neck pain, changes in vision/speech/mentation/hearing, URI, sore throat, chest pain, palpitations, syncope, cough, shortness of breath, wheeze, dyspnea, abdominal pain, nausea/vomiting/diarrhea, urinary retention, dysuria, hematuria, or rash. - ROS Systems Reviewed and Negative: Yes All other systems reviewed and negative Past Medical History - Social History Smoking Status: Unknown if Ever Smoked Family History: COPD - Past Medical History Cardiac Medical History: Reports: Hx Congestive Heart Failure, Hx Hypertension Pulmonary Medical History: Reports: Hx COPD Renal/ Medical History: Denies: Hx Peritoneal Dialysis Malignancy Medical History: Reports Hx Lymphoma - Immunizations Hx Diphtheria, Pertussis, Tetanus Vaccination: Yes Vertical Provider Document - CONSTITUTIONAL Agree With Documented VS: Yes Notes: PHYSICAL EXAMINATION: GENERAL: Well-appearing, well-nourished and in no acute distress. HEAD: Atraumatic, normocephalic. EYES: Pupils equal round and reactive to light, extraocular movements intact, sclera anicteric, conjunctiva are normal. ENT: EAC clear b/l. TM's intact b/l without erythema, fluid, or perforation. No tonsilar hypertrophy or erythema. Moist mucous membranes. No sinus tenderness. Left nares is packed currently with gauze with a slow drip of blood from the gauze noted. Rt nare is patent. There is no active bleeding in the oropharynx. Dried blood on the back side of the tongue. No airway compromise or angioedema. NECK: Normal range of motion, supple without lymphadenopathy LUNGS: Breath sounds clear to auscultation bilaterally and equal. No wheezes rales or rhonchi. HEART: Regular rate and rhythm without murmurs, rubs, gallops. Musculoskeletal: FROM to passive/active. Strength 5+/5. Extremities: No cyanosis, clubbing, or edema b/l. Peripheral pulses 2+. Capillary refill less than 3 seconds. NEUROLOGICAL: Cranial nerves grossly intact. Normal speech, normal gait. PSYCH: Normal mood, normal affect. SKIN: Warm, Dry, normal turgor, no rashes or lesions noted. - INFECTION CONTROL TRAVEL OUTSIDE OF THE [place] IN LAST 30 DAYS: No Course - Re-evaluation Re-evalutation: 03/27/18 11:58 Pt's original gauze was removed and a large clot was also removed with it. Pt's left nare was patent with what appears to be bleeding superficially and anterior in the nare. Afrin was sprayed in his nare. Gauze soaked afrin was then placed inside of the nare and we will re-evaluate thereafter. Pt's oropharynx is clear without active bleeding posteriorly. 03/27/18 12:50 Pt had recurrent bleed despite initial attempt with afrin. packing was removed and nare is still patent with no posterior bleeding. I can see the small area that is actively slowly bleeding to the 11 o clock position superficially near the nare/septum connection area as you look into the nare. It is anterior and superficial. TXA soaked gauze was then tightly packed into the nare. 03/27/18 14:19 The TXA has appeared to work well. There is scant blood noted w/o any obvious dripping/activity. We will observe the patient in an upright position for any recurrence of bleed prior to discharge. If it starts to leak again, I will cauterize. Pt and Dr. Sheehan in agreement with plan. 03/27/18 14:52 Patient is an afebrile, well-hydrated, 87-year-old gentleman with epistaxis. Vitals are currently acceptable without significant tachycardia, tachypnea, or hypoxia. PE is otherwise unremarkable. He is nontoxic-appearing and is tolerating p.o. without difficulty. The bleeding has been well controlled after TXA was placed. He has not had any recurrence of active bleeding. Patient does not want me to cauterize the area of activity at this time. Patient is an 87-year-old male who is currently on Plavix, aspirin, and Eliquis. I reviewed w ith the patient that he needs to have a thorough risk/benefit conversation with his family doctor or provider at [facility] about these medicines for the risk of bleeding. At this time based on his risk and benefit it would be appropriate to hold his Eliquis for 2-3 days and in that time have a follow-up with an ear nose and throat provider. Patient is agreeable to this plan. He is to recheck with his PCM this week as well. Return to the ED with any other worsening/concerning symptoms as reviewed. Patient is in agreement. - Laboratory Result Diagrams: 03/27/18 11:43 Discharge - Discharge Clinical Impression: Epistaxis not due to trauma Condition: Stable Disposition: HOME, SELF-CARE Instructions: Nosebleed Instructions ([facility]) Additional Instructions: Hold your Eliquis for 2-3 days. He should have a risk/benefit conversation with your medical provider on your blood thinning medications versus the risk of bleeding. Nosebleed instructions as reviewed. Maintain adequate fluid intake and a healthy diet Do not pick your nose or blow your nose too hard. Schedule an appointment with ENT for a recheck in 1-3 days or as soon as able. Return to the ED with any worsening symptoms and/or development of fever, headache, uncontrolled nose bleed, changes in behavior/mentation/vision/speech, chest pain, palpitations, syncope, shortness of breath, trouble breathing, abdominal pain, n/v/d, blood in stool/urine, loss of control of bowel/bladder, urinary retention, muscle weakness/paralysis, saddle anesthesia, numbness/tingling, or other worsening symptoms that are concerning to you. Referrals: TOLU COLE DO [ASSOCIATE] - 03/29/18 MARLENE ARREDONDO MD [Primary Care Provider] - Follow up in 3-5 days
[2018-03-27 12:01] LABS: ABSOLUTE EOSINOPHILS # (AUTO) 0.7 10^3/uL (0.0-0.6); ABSOLUTE LYMPHOCYTES (AUTO) 1.8 10^3/uL (0.5-4.7); ABSOLUTE MONOCYTES (AUTO) 0.6 10^3/uL (0.1-1.4); ABSOLUTE NEUT (AUTO) 5.6 10^3/uL (1.7-8.2); BASOPHILS % (AUTO) 0.5 % (0-2); EOSINOPHILS % (AUTO) 8.1 % (0-6); HEMOGLOBIN 12.3 g/dL (13.5-17.0); LYMPHOCYTES % (AUTO) 20.6 % (13-45); MEAN CORPUSCULAR HEMOGLOBIN 28.6 pg (27.0-33.4); MEAN CORPUSCULAR HGB CONC 33.3 g/dL (32.0-36.0); MEAN CORPUSCULAR VOLUME 86 fl (80-97); MONOCYTES % (AUTO) 6.6 % (3-13); PLATELET COUNT 266 10^3/uL (150-450); RED BLOOD COUNT 4.31 10^6/uL (4.35-5.55); RED CELL DISTRIBUTION WIDTH 15.5 % (11.5-14.0); SEGMENTED NEUTROPHILS % (AUTO) 64.2 % (42-78); TOTAL CELLS COUNTED % (AUTO) 100 %; WHITE BLOOD COUNT 8.8 10^3/uL (4.0-10.5)
[2018-03-27 12:08] LABS: INTERNATIONAL RATION (INR) 1.24; PROTHROMBIN TIME 16.2 SEC (11.4-15.4)
[2018-03-27 12:09] LABS: PARTIAL THROMBOPLASTIN TIME 48.3 SEC (23.5-35.8)
[2018-03-27] MEDS ORDERED: TRANEXAMIC ACID INJ/PF 1,000 MG/10 ML SDV IV ONE (12:26)
[2018-03-27 15:26] VITALS: BP 148/66
== END 2018-03-27 15:25 | disposition home or self-care (01) ==
LOC: ER 11:06
PROC: 2Y41X5Z Packing of Nasal Region using Packing Material (ICD-10-PCS; principal; 2018-03-27)
DX: R04.0 Epistaxis (principal); Z79.01 Long term (current) use of anticoagulants; Z79.02 Long term (current) use of antithrombotics/antiplatelets; Z79.82 Long term (current) use of aspirin; I50.9 Heart failure, unspecified; I11.0 Hypertensive heart disease with heart failure; J44.9 Chronic obstructive pulmonary disease, unspecified
CPT/HCPCS: 99283; 36415; 85025; 85610; 85730; 30905; J3490 ×2

== ENCOUNTER 2018-04-08 19:45 | Emergency (ER) | payer MEDICAID, MEDICARE ==
[2018-04-08] MEDS ORDERED: TRANEXAMIC ACID INJ/PF 1,000 MG/10 ML SDV IV ONE (20:17)
[2018-04-08] MEDS ORDERED: CEPHALEXIN 500 MG CAPSULE PO ONE (20:31)
--- NOTE | 2018-04-08 20:31 | ER Document Report ---
ED General - General Chief Complaint: Nose Bleed Stated Complaint: NOSE BLEED Time Seen by Provider: 04/08/18 20:16 Primary Care Provider: MARLENE ARREDONDO MD [Primary Care Provider] - Follow up as needed TOLU COLE DO [ASSOCIATE] - 04/11/18 Notes: Patient is an 87-year-old male with a past medical history of atrial fibrillation, anticoagulated on Eliquis who presents complaining of epistaxis from the left nostril for the past several hours. Patient states that these were currently had this issue each time he goes back on Eliquis. States when anticoagulation is stopped the bleeds likewise stopped. He has had to come the emergency department repeatedly over the past 8 weeks for similar issues. Denies any associated pain. States that holding direct pressure has not improved the bleeding. Nothing has worsened the bleeding since onset. No trauma to the nose. Denies any lightheadedness or syncope. No nausea or vomiting. TRAVEL OUTSIDE OF THE [place] IN LAST 30 DAYS: No - Related Data Allergies/Adverse Reactions: No Known Allergies Allergy (Verified 12/31/17 05:01) Past Medical History - General Information source: Patient - Social History Smoking Status: Former Smoker Chew tobacco use (# tins/day): No Drug Abuse: None Lives with: Shelter Family History: COPD Patient has suicidal ideation: No Patient has homicidal ideation: No - Past Medical History Cardiac Medical History: Reports: Hx Congestive Heart Failure, Hx Heart Attack - stemi, Hx Hypertension Pulmonary Medical History: Reports: Hx COPD Renal/ Medical History: Denies: Hx Peritoneal Dialysis Malignancy Medical History: Reports Hx Lymphoma - Immunizations Hx Diphtheria, Pertussis, Tetanus Vaccination: Yes Review of Systems - Review of Systems Notes: Constitutional: Negative for fever. HENT: Positive for epistaxis Eyes: Negative for visual changes. Cardiovascular: Negative for chest pain. Respiratory: Negative for shortness of breath. Gastrointestinal: Negative for abdominal pain, vomiting or diarrhea. Genitourinary: Negative for dysuria. Musculoskeletal: Negative for back pain. Skin: Negative for rash. Neurological: Negative for headaches, weakness or numbness. 10 point ROS negative except as marked above and in HPI. Physical Exam - Vital signs Vitals: Temp Pulse BP Pulse Ox 98.0 F 96 130/56 H 97 04/08/18 20:03 04/08/18 20:03 04/08/18 20:03 04/08/18 20:03 Interpretation: Normal Notes: PHYSICAL EXAMINATION: GENERAL: Elderly male, appears moderately uncomfortable but in no overt distress HEAD: Atraumatic, normocephalic. EYES: Pupils equal round and reactive to light, extraocular movements intact, sclera anicteric, conjunctiva are normal. ENT: Bleeding with a moderate pace from the left nostril. Oropharynx clear. NECK: Normal range of motion, supple without lymphadenopathy LUNGS: Breath sounds clear to auscultation bilaterally and equal. No wheezes rales or rhonchi. HEART: Regular rate and rhythm without murmurs ABDOMEN: Soft, nontender, normoactive bowel sounds. No guarding, no rebound. No masses appreciated. EXTREMITIES: Normal range of motion, no pitting or edema. No cyanosis. NEUROLOGICAL: No focal neurological deficits. Moves all extremities spontaneously and on command. PSYCH: Moderately anxious SKIN: Warm, Dry, normal turgor, no rashes or lesions noted. Course - Re-evaluation Re-evalutation: 04/08/18 20:27 Patient presents with a moderately brisk bleed from the left nostril. Upon my assessment, bleeding was not controlled with direct pressure or instillation of oxymetazoline. I therefore atomized 1.5 mL's of tranexamic acid in the nostril, inserted a Merocel packing into the nostril expanding it using additional 2 mL's of TXA. This did result in immediate termination of the bleeding. CBC will be obtained. Patient will be monitored for at least 1 hour to ensure that there is no recurrence of bleeding. Cephalexin prophylaxis will be given based on packing placement. 04/08/18 21:07 Unfortunately initial TXA packing was unsuccessful. A 5.5 cm Rhino Rocket was inserted without difficulty. This was terminated bleeding. Will continue to observe the patient. 04/08/18 23:04 Hemoglobin is completely unchanged from what it was obtained only 1 PM earlier today prior to the onset of the patient's bleed. He has not had any recurrence of bleeding. Will discharge with cephalexin prophylaxis and ENT follow-up. At this time will discharge with return precautions and follow-up recommendations. Verbal discharge instructions given a the bedside and opportunity for questions given. Medication warnings reviewed. Patient is in agreement with this plan and has verbalized understanding of return precautions and the need for primary care follow-up in the next 24-72 hours. - Vital Signs Vital signs: Temp Pulse Resp BP Pulse Ox 97.8 F 71 16 129/69 H 96 04/09/18 01:39 04/09/18 01:39 04/09/18 01:39 04/09/18 01:39 04/09/18 01:39 - Laboratory Result Diagrams: 04/08/18 22:38 Laboratory results interpreted by me: 04/08/18 22:38 WBC 10.9 H RBC 3.56 L Hgb 10.1 L Hct 30.3 L RDW 15.1 H Procedures - Nosebleed Procedure Left Location: Anterior Supplies used: Packing, Rhinorocket Notes: First attempt was instillation of TXA soaked Murocel packing into the left nostril. Unfortunately this was unsuccessful. This Murocel packing was subsequently removed. Clots were removed from the nasal cavity. A 5.5 cm Rhino Rocket was inserted into the nostril and insufflated with 10 cc of air. This did terminate bleeding. Patient tolerated procedure well without any immediate complication. Discharge - Discharge Clinical Impression: Nosebleed Anemia Qualifiers: Anemia type: unspecified type Qualified Code(s): D64.9 - Anemia, unspecified Condition: Stable Disposition: HOME-SNF (ED ONLY) Additional Instructions: You need to follow-up with ENT in the next 3-5 days for packing removal. Take antibiotics as prescribed. Take Tylenol 1000 mg every 6 hours as needed return if you have recurrence of bleeding, fever of greater than 100.4 F, worsening pain, pass out, or have any other symptoms that are worrisome to you. Prescriptions: Cephalexin Monohydrate [Keflex 500 mg Capsule] 500 mg PO Q6H 5 Days capsule Referrals: MARLENE ARREDONDO MD [Primary Care Provider] - Follow up as needed TOLU COLE DO [ASSOCIATE] - 04/11/18
[2018-04-08] MEDS ORDERED: ACETAMINOPHEN 325 MG TABLET ONE (21:44)
[2018-04-08] MEDS ORDERED: ACETAMINOPHEN 325 MG TABLET PO ONE (21:50)
[2018-04-08 23:00] LABS: HEMATOCRIT 30.3 % (37.9-51.0); HEMOGLOBIN 10.1 g/dL (13.5-17.0); MEAN CORPUSCULAR HEMOGLOBIN 28.4 pg (27.0-33.4); MEAN CORPUSCULAR HGB CONC 33.4 g/dL (32.0-36.0); MEAN CORPUSCULAR VOLUME 85 fl (80-97); PLATELET COUNT 250 10^3/uL (150-450); RED BLOOD COUNT 3.56 10^6/uL (4.35-5.55); RED CELL DISTRIBUTION WIDTH 15.1 % (11.5-14.0); WHITE BLOOD COUNT 10.9 10^3/uL (4.0-10.5)
[2018-04-09] MEDS ORDERED: OXYCODONE HCL IR 5 MG TABLET PO ONE (01:06)
[2018-04-09 01:45] VITALS: BP 129/69
== END 2018-04-09 02:04 ==
LOC: ER 19:45
DX: R04.0 Epistaxis (principal); I48.91 Unspecified atrial fibrillation; Z79.01 Long term (current) use of anticoagulants; D64.9 Anemia, unspecified; I25.2 Old myocardial infarction; I10 Essential (primary) hypertension; J44.9 Chronic obstructive pulmonary disease, unspecified; Z87.891 Personal history of nicotine dependence
CPT/HCPCS: 99283; 36415; 85027; 30901; J3490 ×2

== ENCOUNTER 2018-04-15 01:04 | Emergency (ER) | payer MEDICARE, MEDICAID ==
--- NOTE | 2018-04-15 01:18 | ER Document Report ---
ED General - General Stated Complaint: NOSE BLEED Time Seen by Provider: 04/15/18 01:09 Notes: Patient is an 87-year-old male with a history of recurrent nosebleeds. He presents with a nosebleed again. He was seen here [address] Hale. He had a Rhino Rocket placed in his left nare. Patient followed up with ENT 2 days ago. At that time he had the Rhino Rocket removed and that no packing placed. He supposed to follow back up on the to have the packing removed. He is on blood thinning medications. Each time he is sent home from here a week informed them to stop giving him the blood thinners. Patient says they continue to give the blood thinners and according to his med list he is receiving both Plavix and Eliquis despite us asking them to stop these medications. He is on Eliquis because of history of A. fib. TRAVEL OUTSIDE OF THE [place] IN LAST 30 DAYS: No - Related Data Allergies/Adverse Reactions: No Known Allergies Allergy (Verified 12/31/17 05:01) Past Medical History - Social History Smoking Status: Unknown if Ever Smoked Frequency of alcohol use: None Drug Abuse: None Family History: COPD - Past Medical History Cardiac Medical History: Reports: Hx Congestive Heart Failure, Hx Heart Attack - stemi, Hx Hypertension Pulmonary Medical History: Reports: Hx COPD Renal/ Medical History: Denies: Hx Peritoneal Dialysis Malignancy Medical History: Reports Hx Lymphoma - Immunizations Hx Diphtheria, Pertussis, Tetanus Vaccination: Yes Review of Systems - Review of Systems Notes: My Normal Review Basic REVIEW OF SYSTEMS: CONSTITUTIONAL : Denies fever, chills, or sweats. Denies recent illness. EENT: Bleeding from left nare RESPIRATORY: Denies cough, cold, or chest congestion. Denies shortness of breath, difficulty breathing, or wheezing. MUSCULOSKELETAL: Denies neck or back pain or joint pain or swelling. SKIN: Denies rash or skin lesions. HEMATOLOGIC : On blood thinning medications. NEUROLOGICAL: Denies altered mental status or loss of consciousness. Denies headache. Denies weakness or paralysis or loss of use of either side. Denies problems with gait or speech. Denies sensory or motor loss. ALL OTHER SYSTEMS REVIEWED AND NEGATIVE. Physical Exam - Vital signs Vitals: Temp Pulse Resp BP Pulse Ox 97.9 F 70 16 140/70 H 98 04/15/18 01:36 04/15/18 01:36 04/15/18 01:36 04/15/18 01:36 04/15/18 01:36 - Notes Notes: General Appearance: Well nourished, alert, cooperative, no acute distress, no obvious discomfort. Vitals: reviewed, See vital signs table. Head: no swelling or tenderness to the head Eyes: PERRL, EOMI, Conjuctiva clear Mouth: No decreasd moisture Nare: Patient has a large clot over the left nare. Once clot is removed patient has a packing that is sewn in inside the left nare. He has a slow blood leakage around the packing. No bleeding from the right nare. Skin: warm, dry, appropriate color, no rash Neuro: speech clear, oriented x 3, normal affect, responds appropriately to questions. Course - Re-evaluation Re-evalutation: 04/15/18 03:20 Patient is resting comfortably. Txa is currently infusing. Bleeding appears to have stopped. 04/15/18 05:42 Patient's bleeding did stop after TXA infused. I also made a clamp placed on the nose which I left there for approximately 45 minutes. I left the packing in place as it is currently sutured in place. Patient has appointment with the ENT doctor on the . I did call the skilled nursing and informed them to hold the Plavix for the next 24 hours. I informed them not to restart the Eliquis until it is cleared by ear nose and throat doctor. I also wrote this in the discharge instructions. She is to return if he has recurrent bleeding. - Vital Signs Vital signs: Temp Pulse Resp BP Pulse Ox 97.9 F 70 12 144/65 H 95 04/15/18 01:36 04/15/18 01:36 04/15/18 04:01 04/15/18 04:01 04/15/18 04:01 - Laboratory Result Diagrams: 04/15/18 01:35 Laboratory results interpreted by me: 04/15/18 01:35 WBC 11.6 H RBC 3.33 L Hgb 9.4 L Hct 27.8 L RDW 14.6 H Eosinophils % 7.1 H Absolute Eosinophils 0.8 H Discharge - Discharge Clinical Impression: Nosebleed Additional Instructions: Do not take Eliquis anymore. You cannot be restarted on Eliquis until cleared by the ear nose and throat doctor. Hold the Plavix for 24 hours. Hold the April 15 dose of the Plavix. You can restart this on the . Return to ER if you continue to have recurrent bleeding of the nose despite holding pressure to the nose for at least 30 minutes.
[2018-04-15] MEDS ORDERED: LIDOCAINE 1%/EPINEPHRINE INJ 20 ML VIAL INJ ONE (01:34)
[2018-04-15 01:46] LABS: ABSOLUTE BASOPHILS # (AUTO) 0.1 10^3/uL (0.0-0.2); ABSOLUTE EOSINOPHILS # (AUTO) 0.8 10^3/uL (0.0-0.6); ABSOLUTE LYMPHOCYTES (AUTO) 2.1 10^3/uL (0.5-4.7); ABSOLUTE MONOCYTES (AUTO) 0.9 10^3/uL (0.1-1.4); ABSOLUTE NEUT (AUTO) 7.8 10^3/uL (1.7-8.2); BASOPHILS % (AUTO) 0.7 % (0-2); EOSINOPHILS % (AUTO) 7.1 % (0-6); HEMATOCRIT 27.8 % (37.9-51.0); HEMOGLOBIN 9.4 g/dL (13.5-17.0); LYMPHOCYTES % (AUTO) 17.7 % (13-45); MEAN CORPUSCULAR HEMOGLOBIN 28.4 pg (27.0-33.4); MEAN CORPUSCULAR VOLUME 83 fl (80-97); MONOCYTES % (AUTO) 7.7 % (3-13); PLATELET COUNT 294 10^3/uL (150-450); RED BLOOD COUNT 3.33 10^6/uL (4.35-5.55); RED CELL DISTRIBUTION WIDTH 14.6 % (11.5-14.0); SEGMENTED NEUTROPHILS % (AUTO) 66.8 % (42-78); TOTAL CELLS COUNTED % (AUTO) 100 %; WHITE BLOOD COUNT 11.6 10^3/uL (4.0-10.5)
[2018-04-15] MEDS ORDERED: TRANEXAMIC ACID INJ/PF 1,000 MG/10 ML SDV IV ONE (01:50)
[2018-04-15 08:13] VITALS: BP 123/55
== END 2018-04-15 08:28 ==
LOC: ER 01:04
DX: I10 Essential (primary) hypertension (principal); I25.2 Old myocardial infarction; J44.9 Chronic obstructive pulmonary disease, unspecified; R04.0 Epistaxis; I48.91 Unspecified atrial fibrillation; Z79.01 Long term (current) use of anticoagulants; Z79.02 Long term (current) use of antithrombotics/antiplatelets; Z91.14 Patient's other noncompliance with medication regimen; Z85.72 Personal history of non-Hodgkin lymphomas; Z98.890 Other specified postprocedural states
CPT/HCPCS: 99283; 96365; 36415; 85025; J3490

== ENCOUNTER 2018-07-20 14:22 | Inpatient (IN) | payer MEDICARE, MEDICAID ==
--- NOTE | 2018-07-20 14:57 | RADIOLOGY REPORT (SQ) ---
EXAM DESCRIPTION: CHEST SINGLE VIEW COMPLETED DATE/TIME: 07/20/2018 2:49 pm REASON FOR STUDY: bed 16 sepsis protocol COMPARISON: 12/31/2017 NUMBER OF VIEWS: One view. TECHNIQUE: Single frontal radiographic view of the chest acquired. LIMITATIONS: None. FINDINGS: LUNGS AND PLEURA: Interstitial markings are prominent but unchanged. [id number] remain s in place. No consolidation. No pneumothorax. MEDIASTINUM AND HILAR STRUCTURES: No masses. Contour normal. HEART AND VASCULAR STRUCTURES: Heart normal in size. Normal vasculature. BONES: No acute findings. HARDWARE: [id number] remains in place. OTHER: There is interposition of the colon. IMPRESSION: Prominent interstitial markings. No acute findings. [id number] remains in place. TECHNICAL DOCUMENTATION: JOB ID: [id number] [employer]- All Rights Reserved Reading location - IP/workstation name: [email or web address]
[2018-07-20 15:03] LABS: VENOUS BLOOD BASE EXCESS -7.6 mmol/L; VENOUS BLOOD PH 7.31 (7.30-7.42)
[2018-07-20 15:04] LABS: ABSOLUTE LYMPHOCYTES (AUTO) 1.3 10^3/uL (0.5-4.7); ABSOLUTE MONOCYTES (AUTO) 0.8 10^3/uL (0.1-1.4); ABSOLUTE NEUT (AUTO) 12.6 10^3/uL (1.7-8.2); BASOPHILS % (AUTO) 0.1 % (0-2); EOSINOPHILS % (AUTO) 0.2 % (0-6); HEMATOCRIT 23.1 % (37.9-51.0); LYMPHOCYTES % (AUTO) 8.6 % (13-45); MEAN CORPUSCULAR HEMOGLOBIN 27.2 pg (27.0-33.4); MEAN CORPUSCULAR HGB CONC 32.9 g/dL (32.0-36.0); MEAN CORPUSCULAR VOLUME 83 fl (80-97); MONOCYTES % (AUTO) 5.6 % (3-13); PLATELET COUNT 338 10^3/uL (150-450); RED CELL DISTRIBUTION WIDTH 15.4 % (11.5-14.0); SEGMENTED NEUTROPHILS % (AUTO) 85.5 % (42-78); TOTAL CELLS COUNTED % (AUTO) 100 %; WHITE BLOOD COUNT 14.8 10^3/uL (4.0-10.5)
[2018-07-20 15:08] LABS: INTERNATIONAL RATION (INR) 2.38; PROTHROMBIN TIME 27.1 SEC (11.4-15.4)
[2018-07-20 15:09] LABS: HEMOGLOBIN 7.6 g/dL (13.5-17.0)
[2018-07-20] MEDS ORDERED: NORMAL SALINE 500 ML IV ONE (15:17)
[2018-07-20] MEDS ORDERED: NORMAL SALINE 250 ML IV PRN ×2 (15:18)
--- NOTE | 2018-07-20 15:24 | ER Document Report ---
ED General - General Stated Complaint: ALTERED MENTAL STATUS Time Seen by Provider: 07/20/18 15:17 Primary Care Provider: MARLENE ARREDONDO MD [Primary Care Provider] - Follow up as needed TRAVEL OUTSIDE OF THE [place] IN LAST 30 DAYS: No - HPI Notes: Patient is a 87-year-old male that presents to the emergency department for chief complaint of palor and decreased energy. Patient presented by [facility] from [facility]. Family saw him today and felt that he looked pale and had decreased energy. He is a full code. Patient states that his only complaint currently is feeling tired and having ron n in his legs. He reports chronic pain in his legs from DVT. He denies recent injury or trauma. He is unsure if his stool has changed at all. He denies any difficulty breathing, chest pain, fevers or abdominal pain. Patient is a poor historian which does limit my HPI. Past Medical History: Diabetes, non-Hodgkin's lymphoma, pulmonary hypertension, congestive heart failure, DVT, COPD, CKD Past Surgical History: Reviewed in chart Social History: Lives at [facility] facility Family History: Reviewed and noncontributory for presenting illness Allergies: Reviewed, see documented allergy list. REVIEW OF SYSTEMS: CONSTITUTIONAL : No fever No chills No diaphoresis No recent illness Fatigue EENT: No vision changes No congestion No sore throat CARDIOVASCULAR: No chest pain No palpitations RESPIRATORY: No shortness of breath No cough No difficulty breathing GASTROINTESTINAL: No abdominal pain No nausea No vomiting No diarrhea GENITOURINARY: No dysuria No hematuria No difficulty urinating MUSCULOSKELETAL: No back pain leg pain No arm pain SKIN: No rashes No lesions LYMPHATIC: No swollen, enlarged glands. NEUROLOGICAL: No lightheadedness No headache No weakness No paresthesias PSYCHIATRIC: No anxiety No depression PHYSICAL EXAMINATION: Vital signs reviewed, nursing noted reviewed. GENERAL: Ill-appearing, thin, somnolent HEAD: Atraumatic, normocephalic. EYES: Eyes appear normal, extraocular movements intact, sclera anicteric, conjunctiva are pale ENT: Diffuse dental decay, nares patent, oropharynx clear without exudates. Dry mucous membranes. NECK: Normal range of motion, supple without lymphadenopathy LUNGS: Breath sounds clear to auscultation bilaterally and equal. No wheezes rales or rhonchi. HEART: Regular rate and rhythm without murmurs ABDOMEN: Soft, nontender, normoactive bowel sounds. No rebound, guarding, or rigidity. No masses appreciated. EXTREMITIES: Nontender, good range of motion, no pitting or edema. : Black stool, Hemoccult positive NEUROLOGICAL: Oriented to person only. Somnolent. Moves all extremities spontaneously Motor and sensory grossly intact on exam. PSYCH: Normal mood, normal affect. SKIN: Warm, Dry, normal turgor, bilateral chronic venous stasis color changes to lower legs and feet, stage II sacral decubitus ulcer - Related Data Allergies/Adverse Reactions: No Known Allergies Allergy (Verified 12/31/17 05:01) Past Medical History - Social History Smoking Status: Never Smoker Family History: COPD - Past Medical History Cardiac Medical History: Reports: Hx Congestive Heart Failure, Hx Heart Attack - stemi, Hx Hypertension Pulmonary Medical History: Reports: Hx COPD Renal/ Medical History: Denies: Hx Peritoneal Dialysis Malignancy Medical History: Reports Hx Lymphoma - Immunizations Hx Diphtheria, Pertussis, Tetanus Vaccination: Yes Physical Exam - Vital signs Vitals: Resp Pulse Ox 21 H 99 07/20/18 14:36 07/20/18 14:36 Course - Re-evaluation Re-evalutation: 07/20/18 15:22 Vitals reviewed. Nursing notes reviewed. Patient presented to the emergency room hypotensive. He has pale conjunctivae and dry mucous membranes. He was started on IV fluids with some improvement of blood pressure. He is acutely anemic with a hemoglobin of 7.6. He is Hemoccult positive. Patient anticoagulated on Eliquis and Plavix. He will be ordered blood transfusion for his bleeding and hypotension. Patient is reportedly a full code. There is no family present currently. 07/20/18 16:52 Patient's family has arrived. His daughter is at bedside and states she is his primary caregiver. She is in the process of obtaining medical power of regulatory attorney. On reevaluation is more alert than when he initially presented. He is more interactive. Blood pressure has improved to 115/62 after the first unit of blood. We are currently waiting the second unit of blood. He is in acute renal failure with no acute hyperkalemia. His renal failure is likely related to volume depletion. He does have a history of CKD. There are no current signs of infection to suggest sepsis. Patient and family had a lengthy discussion with myself regarding DNR. They have decided to make patient DNR/DNI. They do not wish for him to have any central lines for pressor medications if that would be necessary. They do not wish for him to be intubated. Patient understands this conversation and agrees with this plan of care. I did discuss his care with Dr. Adame who has accepted admission. Laboratory 07/20/18 07/20/18 07/20/18 14:36 14:36 14:36 WBC 14.8 H RBC 2.80 L Hgb 7.6 L Hct 23.1 L MCV 83 MCH 27.2 MCHC 32.9 RDW 15.4 H Plt Count 338 Seg Neutrophils % 85.5 H Lymphocytes % 8.6 L Monocytes % 5.6 Eosinophils % 0.2 Basophils % 0.1 Absolute Neutrophils 12.6 H Absolute Lymphocytes 1.3 Absolute Monocytes 0.8 Absolute Eosinophils 0.0 Absolute Basophils 0.0 PT 27.1 H INR 2.38 VBG pH VBG pCO2 VBG HCO3 VBG Base Excess Sodium 139.4 Potassium 4.7 Chloride 101 Carbon Dioxide 19 L Anion Gap 19 BUN 195 H Creatinine 6.53 H Est GFR ( Amer) 10 L Est GFR (Non-Af Amer) 8 L Glucose 117 H POC Glucose Lactic Acid Calcium 8.5 Total Bilirubin 0.5 Direct Bilirubin 0.5 H Neonat Total Bilirubin Not Reportable Neonat Direct Bilirubin Not Reportable Neonat Indirect Bili Not Reportable AST 27 ALT 27 Alkaline Phosphatase 123 Troponin I Total Protein 5.9 L Albumin 2.9 L POC Stool Occult Blood Blood Type Antibody Screen Crossmatch 07/20/18 07/20/18 07/20/18 14:36 14:36 14:36 WBC RBC Hgb Hct MCV MCH MCHC RDW Plt Count Seg Neutrophils % Lymphocytes % Monocytes % Eosinophils % Basophils % Absolute Neutrophils Absolute Lymphocytes Absolute Monocytes Absolute Eosinophils Absolute Basophils PT INR VBG pH 7.31 VBG pCO2 37.0 VBG HCO3 18.0 L VBG Base Excess -7.6 Sodium Potassium Chloride Carbon Dioxide Anion Gap BUN Creatinine Est GFR ( Amer) Est GFR (Non-Af Amer) Glucose POC Glucose Lactic Acid 1.0 Calcium Total Bilirubin Direct Bilirubin Neonat Total Bilirubin Neonat Direct Bilirubin Neonat Indirect Bili AST ALT Alkaline Phosphatase Troponin I 0.052 Total Protein Albumin POC Stool Occult Blood Blood Type Antibody Screen Crossmatch 07/20/18 07/20/18 07/20/18 15:14 15:15 15:56 WBC RBC Hgb Hct MCV MCH MCHC RDW Plt Count Seg Neutrophils % Lymphocytes % Monocytes % Eosinophils % Basophils % Absolute Neutrophils Absolute Lymphocytes Absolute Monocytes Absolute Eosinophils Absolute Basophils PT INR VBG pH VBG pCO2 VBG HCO3 VBG Base Excess Sodium Potassium Chloride Carbon Dioxide Anion Gap BUN Creatinine Est GFR ( Amer) Est GFR (Non-Af Amer) Glucose POC Glucose 132 H Lactic Acid Calcium Total Bilirubin Direct Bilirubin Neonat Total Bilirubin Neonat Direct Bilirubin Neonat Indirect Bili AST ALT Alkaline Phosphatase Troponin I Total Protein Albumin POC Stool Occult Blood POSITIVE Blood Type AB POSITIVE Antibody Screen NEGATIVE Crossmatch See Detail Chest X-Ray 07/20/18 14:25 IMPRESSION: Prominent interstitial markings. No acute findings. [id number] remains in place. - Vital Signs Vital signs: Temp Pulse Resp BP Pulse Ox 96.9 F L 63 17 96/47 L 98 07/20/18 15:59 07/20/18 15:59 07/20/18 15:59 07/20/18 15:59 07/20/18 15:59 - Laboratory Result Diagrams: 07/20/18 14:36 07/20/18 14:36 Laboratory results interpreted by me: 07/20/18 07/20/18 07/20/18 14:36 14:36 14:36 WBC 14.8 H RBC 2.80 L Hgb 7.6 L Hct 23.1 L RDW 15.4 H Seg Neutrophils % 85.5 H Lymphocytes % 8.6 L Absolute Neutrophils 12.6 H PT 27.1 H VBG HCO3 Carbon Dioxide 19 L BUN 195 H Creatinine 6.53 H Est GFR ( Amer) 10 L Est GFR (Non-Af Amer) 8 L Glucose 117 H POC Glucose Direct Bilirubin 0.5 H Total Protein 5.9 L Albumin 2.9 L Crossmatch 07/20/18 07/20/18 07/20/18 14:36 15:14 15:56 WBC RBC Hgb Hct RDW Seg Neutrophils % Lymphocytes % Absolute Neutrophils PT VBG HCO3 18.0 L Carbon Dioxide BUN Creatinine Est GFR ( Amer) Est GFR (Non-Af Amer) Glucose POC Glucose 132 H Direct Bilirubin Total Protein Albumin Crossmatch See Detail - EKG Interpretation by Me Additional EKG results interpreted by me: 07/20/18 15:24 Interpreted by myself 1454: Normal sinus rhythm, first-degree AV block, rate 76, normal axis, no ectopy, no STEMI, diffuse T wave flattening Critical Care Note - Critical Care Note Total time excluding time spent on procedures (mins): 50 Comments: Critical care time 50 exclusive from separate billable procedures for a patient requiring complex medical decision making, and high potential for clinical deterioration. Time spent obtaining history from patient or surrogate, discussions with consultants, development of treatment plan with patient or surrogate, evaluation of patient's response to treatment, examination of patient, ordering and performing treatments and interventions, ordering and review of laboratory studies, re-evaluation of patient's condition, ordering and review of radiographic studies and review of old charts Discharge - Discharge Clinical Impression: Upper GI bleed, Blood loss anemia, Shocks, hemorrhagic Acute renal failure Qualifiers: Acute renal failure type: unspecified Qualified Code(s): N17.9 - Acute kidney failure, unspecified Condition: Serious Disposition: ADMITTED INPATIENT Admitting Provider: Wendi (Hospitalist) Unit Admitted: ICU Referrals: MARLENE ARREDONDO MD [Primary Care Provider] - Follow up as needed
[2018-07-20 16:09] LABS: ALANINE AMINOTRANSFERASE 27 U/L (21-72); ALBUMIN 2.9 g/dL (3.5-5.0); ALKALINE PHOSPHATASE 123 U/L (38-126); ANION GAP 19 (5-19); ASPARTATE AMINO TRANSFERASE 27 U/L (17-59); BILIRUBIN,DIRECT 0.5 mg/dL (0.0-0.4); BILIRUBIN,TOTAL 0.5 mg/dL (0.2-1.3); CALCIUM 8.5 mg/dL (8.4-10.2); CARBON DIOXIDE 19 mmol/L (22-30); CHLORIDE 101 mmol/L (98-107); GLUCOSE 117 mg/dL (75-110); SODIUM 139.4 mmol/L (137-145); TOTAL PROTEIN 5.9 g/dL (6.3-8.2)
[2018-07-20 16:13] LABS: POTASSIUM 4.7 mmol/L (3.6-5.0)
[2018-07-20 16:31] LABS: BLOOD UREA NITROGEN 195 mg/dL (7-20)
--- NOTE | 2018-07-20 17:18 | PDOC H&P ---
History of Present Illness Admission Date/PCP: 07/20/18 16:59 MARLENE ARREDONDO History of Present Illness: MADALYN JOYA is a 87 year old male, [facility] resident with past medical history of hypertension, hyperlipidemia, lymphoma, COPD, DVT on Eliquis, chronic renal failure, CHF and history of IN brought from detention with chief complaint of being pale and altered mental status. He is also noticed to have melanotic stool and his stool for occult blood is positive. The above brief history is obtained from ER attending a lot since patient is nonverbal when I saw him. On arrival patient found to be hypotensive with blood pressure of 60/40 for which she was given normal saline and later his blood pressure increased to 90/60 after a bolus of normal saline. His blood work shows leukocytosis of 14.6 and hemoglobin of 7.6, BUN of 195 creatinine of 6.53 and GFR of 8. Patient got 1 unit of packed RBC. Dr. Adamson consulted on this patient. ER attending discussed with the family member and making DNR/DNI. Past Medical History Cardiac Medical History: Reports: Congestive Heart Failure, Myocardial Infarction - stemi, Hypertension Pulmonary Medical History: Reports: Chronic Obstructive Pulmonary Disease (COPD) Malignancy Medical History: Reports: Lymphoma Social History Smoking Status: Never Smoker Hx Recreational Drug Use: No Hx Prescription Drug Abuse: No - Advance Directive Resuscitation Status: Do Not Resuscitate Family History Family History: COPD Parental Family History Reviewed: Yes Children Family History Reviewed: Yes Sibling(s) Family History Reviewed.: Yes Medication/Allergy Home Medications: Apixaban [Eliquis 2.5 mg Tablet] 2.5 mg PO Q12 07/20/18 Atorvastatin Calcium [Lipitor 40 mg Tablet] 40 mg PO DAILY 07/20/18 Clopidogrel Bisulfate [Plavix 75 mg Tablet] 75 mg PO DAILY 07/20/18 Lisinopril [Prinivil 5 mg Tablet] 5 mg PO DAILY 07/20/18 Metoprolol Succinate [Toprol Xl 25 mg Tab.sr] 25 mg PO DAILY 07/20/18 Mirtazapine 7.5 mg PO QHS 07/20/18 Allergies/Adverse Reactions: No Known Allergies Allergy (Verified 12/31/17 05:01) Review of Systems ROS unobtainable: Due to mental status Physical Exam Vital Signs: Temp Pulse Resp BP Pulse Ox 97.3 F 67 18 118/56 L 99 07/20/18 17:05 07/20/18 17:04 07/20/18 17:05 07/20/18 17:05 07/20/18 17:04 Intake & Output 07/19/18 07/20/18 07/21/18 06:59 06:59 06:59 Intake Total 300 Balance 300 General appearance: PRESENT: no acute distress Eye exam: PRESENT: conjunctiva pale Mouth exam: PRESENT: dry mucosa Neck exam: ABSENT: carotid bruit, JVD, lymphadenopathy, thyromegaly Respiratory exam: PRESENT: clear to auscultation ricardo. ABSENT: rales, rhonchi, wheezes Cardiovascular exam: PRESENT: RRR. ABSENT: diastolic murmur, rubs, systolic murmur GI/Abdominal exam: PRESENT: normal bowel sounds, soft. ABSENT: distended, guarding, mass, organolmegaly, rebound, tenderness Results Laboratory Results: 07/20/18 14:36 07/20/18 14:36 07/20/18 07/20/18 07/20/18 14:36 14:36 14:36 WBC 14.8 H RBC 2.80 L Hgb 7.6 L Hct 23.1 L MCV 83 MCH 27.2 MCHC 32.9 RDW 15.4 H Plt Count 338 Seg Neutrophils % 85.5 H Lymphocytes % 8.6 L Monocytes % 5.6 Eosinophils % 0.2 Basophils % 0.1 Absolute Neutrophils 12.6 H Absolute Lymphocytes 1.3 Absolute Monocytes 0.8 Absolute Eosinophils 0.0 Absolute Basophils 0.0 VBG pH VBG pCO2 VBG HCO3 VBG Base Excess Sodium 139.4 Potassium 4.7 Chloride 101 Carbon Dioxide 19 L Anion Gap 19 BUN 195 H Creatinine 6.53 H Est GFR ( Amer) 10 L Est GFR (Non-Af Amer) 8 L Glucose 117 H Lactic Acid 1.0 Calcium 8.5 Total Bilirubin 0.5 AST 27 ALT 27 Alkaline Phosphatase 123 Total Protein 5.9 L Albumin 2.9 L Blood Type Antibody Screen 07/20/18 07/20/18 14:36 15:56 WBC RBC Hgb Hct MCV MCH MCHC RDW Plt Count Seg Neutrophils % Lymphocytes % Monocytes % Eosinophils % Basophils % Absolute Neutrophils Absolute Lymphocytes Absolute Monocytes Absolute Eosinophils Absolute Basophils VBG pH 7.31 VBG pCO2 37.0 VBG HCO3 18.0 L VBG Base Excess -7.6 Sodium Potassium Chloride Carbon Dioxide Anion Gap BUN Creatinine Est GFR ( Amer) Est GFR (Non-Af Amer) Glucose Lactic Acid Calcium Total Bilirubin AST ALT Alkaline Phosphatase Total Protein Albumin Blood Type AB POSITIVE Antibody Screen NEGATIVE 07/20/18 14:36 Troponin I 0.052 Impressions: Chest X-Ray 07/20/18 14:25 IMPRESSION: Prominent interstitial markings. No acute findings. [id number] remains in place. Assessment and Plan - Diagnosis (1) Acute blood loss anemia Is this a current diagnosis for this admission?: Yes Plan: Due to #2 Most probably due to upper GI bleeding. Patient is going to be transfused second unit of packed RBC. And will follow his hemoglobin and hematocrit. (2) Upper GI bleeding Is this a current diagnosis for this admission?: Yes Plan: Dr. Adamson consulted and he will evaluate the patient for possible EGD and colonoscopy. In the meantime we will start him on IV Protonix and cautiously hydrated with normal saline. I will stop his Eliquis. (3) COPD (chronic obstructive pulmonary disease) Qualifiers: Emphysema type: unspecified Is this a current diagnosis for this admission?: Yes Plan: Patient does not have shortness of breath or wheezing. We will put him on PRN bronchodilators. (4) Hypertension Qualifiers: Hypertension type: essential hypertension Qualified Code(s): I10 - Esse ntial (primary) hypertension Is this a current diagnosis for this admission?: Yes Plan: I will hold his home antihypertensive regimen patient's since patient currently hypotensive (5) Hyperlipidemia Qualifiers: Hyperlipidemia type: unspecified Qualified Code(s): E78.5 - Hyperlipidemia, unspecified Is this a current diagnosis for this admission?: Yes Plan: Continue home medication
[2018-07-20] MEDS ORDERED: ACETAMINOPHEN 325 MG TABLET PO PRN (17:19)
[2018-07-20] MEDS ORDERED: DEXTROSE 40% GEL 15 GM TUBE PO PRN ×2 (17:19)
[2018-07-20] MEDS ORDERED: DEXTROSE 50%-WATER 25 GM/50 ML DISP.SYRIN IV PRN ×2 (17:19)
[2018-07-20] MEDS ORDERED: GLUCAGON,HUMAN RECOMB 1 MG INJ SUBCUT PRN (17:19)
[2018-07-20] MEDS ORDERED: ONDANSETRON HCL INJ/PF 4 MG/2 ML SDV IV PRN (17:19)
[2018-07-20] MEDS ORDERED: PANTOPRAZOLE SODIUM 40 MG VIAL IV ONE (17:26)
[2018-07-20 18:45] LABS: APPEARANCE,URINE TURBID; BILIRUBIN,URINE NEGATIVE (NEGATIVE); GLUCOSE, URINE NEGATIVE (NEGATIVE); KETONES,URINE NEGATIVE (NEGATIVE); LEUKOCYTE ESTERASE,URINE SMALL (NEGATIVE); NITRITE,URINE NEGATIVE (NEGATIVE); PROTEIN,URINE 30 mg/dL (NEGATIVE); URINE SPECIFIC GRAVITY 1.013; UROBILINOGEN,URINE NEGATIVE mg/dL (<2.0)
[2018-07-20 18:47] LABS: COLOR,URINE YELLOW
[2018-07-20] MEDS ORDERED: PANTOPRAZOLE SODIUM 80 MG in NORMAL SALINE 100 ML IV ONE (19:00)
[2018-07-20] MEDS: IPRATROPIUM/ALBUTEROL 0.5-2.5 MG/3 ML AMPUL NEB PRN (20:23)
--- NOTE | 2018-07-20 21:59 | PDOC CONSULTATION ---
Consultation Consult Date: 07/20/18 Provider Consulted: MAYO ESPINAL Consult reason:: Anemia with stool occult blood positive History of Present Illness Admission Date/PCP: 07/20/18 16:59 MARLENE ARREDONDO Patient complains of: weakness confusion History of Present Illness: MADALYN JOYA is a 87 year old male with history of nasal bleed in April and had cautery by ENT. Last nasal bleed episode was 2 weeks ago according to heis daughter. Noted to be weak and confused in the NH and brought to ED today. Noted BP Sys of about 60 and stool positive for heme occult. Given 2 units PRBCs with VS improved and patient more awake but still not completely well oriented. He does not know where he is. He is also bedridden after his MO in December 2017. 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 He is on Eliquis and Plavix which were just stopped today. Had a long talk with his daughter and she request patient on DNR/DNI protocol. She is agreeing to EGD and colonoscopy but feels her Dad is very weak at this time. Will hold off endoscopy until family is agreeable. Patient does not look to be actively bleeding at this time. I suspect his anemia may be more due to chronic nasal bleed aggravated by Eliquis and Plavix. Past Medical History Cardiac Medical History: Reports: Congestive Heart Failure, Myocardial Infarction - stemi, Hypertension Pulmonary Medical History: Reports: Chronic Obstructive Pulmonary Disease (COPD) Malignancy Medical History: Reports: Lymphoma Psychiatric Medical History: Denies: Depression Past Surgical History Past Surgical History: Reports: Other - chemoport for chemotherapy in 2010 Social History Smoking Status: Former Smoker Frequency of Alcohol Use: None Hx Recreational Drug Use: No Drugs: None Hx Prescription Drug Abuse: No - Advance Directive Resuscitation Status: Do Not Resuscitate Family History Family History: COPD Parental Family History Reviewed: Yes Children Family History Reviewed: No Sibling(s) Family History Reviewed.: No Medication/Allergy Home Medications: Apixaban [Eliquis 2.5 mg Tablet] 2.5 mg PO Q12 07/20/18 Atorvastatin Calcium [Lipitor 40 mg Tablet] 40 mg PO DAILY 07/20/18 Clopidogrel Bisulfate [Plavix 75 mg Tablet] 75 mg PO DAILY 07/20/18 Lisinopril [Prinivil 5 mg Tablet] 5 mg PO DAILY 07/20/18 Metoprolol Succinate [Toprol Xl 25 mg Tab.sr] 25 mg PO DAILY 07/20/18 Mirtazapine 7.5 mg PO QHS 07/20/18 Allergies/Adverse Reactions: No Known Allergies Allergy (Verified 12/31/17 05:01) Review of Systems Constitutional: PRESENT: as per HPI, chills, weakness Eyes: PRESENT: visual disturbances Cardiovascular: PRESENT: other - no chest pains/cough Gastrointestinal: PRESENT: other - no pains Neurological: PRESENT: weakness Physical Exam Vital Signs: Temp Pulse Resp BP Pulse Ox 97.0 F 79 19 114/60 98 07/20/18 19:44 07/20/18 20:23 07/20/18 20:23 07/20/18 19:44 07/20/18 20:23 Intake & Output 07/19/18 07/20/18 07/21/18 06:59 06:59 06:59 Intake Total 1100 Output Total 35 Balance 1065 Weight 74.7 kg General appearance: PRESENT: disheveled Eye exam: PRESENT: other - dry exudate around eyelids Neck exam: PRESENT: other - trachea midline Cardiovascular exam: PRESENT: RRR Pulses: PRESENT: normal radial pulses Vascular exam: PRESENT: normal capillary refill GI/Abdominal exam: PRESENT: soft Rectal exam: PRESENT: heme (+) stool Extremities exam: PRESENT: other - dark discoloration lower legs Neurological exam: PRESENT: oriented to person Psychiatric exam: PRESENT: flat affect Skin exam: PRESENT: pallor, warm Results Laboratory Results: 07/20/18 14:36 07/20/18 14:36 07/20/18 07/20/18 07/20/18 14:36 14:36 14:36 WBC 14.8 H RBC 2.80 L Hgb 7.6 L Hct 23.1 L MCV 83 MCH 27.2 MCHC 32.9 RDW 15.4 H Plt Count 338 Seg Neutrophils % 85.5 H Lymphocytes % 8.6 L Monocytes % 5.6 Eosinophils % 0.2 Basophils % 0.1 Absolute Neutrophils 12.6 H Absolute Lymphocytes 1.3 Absolute Monocytes 0.8 Absolute Eosinophils 0.0 Absolute Basophils 0.0 VBG pH VBG pCO2 VBG HCO3 VBG Base Excess Sodium 139.4 Potassium 4.7 Chloride 101 Carbon Dioxide 19 L Anion Gap 19 BUN 195 H Creatinine 6.53 H Est GFR ( Amer) 10 L Est GFR (Non-Af Amer) 8 L Glucose 117 H Lactic Acid 1.0 Calcium 8.5 Total Bilirubin 0.5 AST 27 ALT 27 Alkaline Phosphatase 123 Total Protein 5.9 L Albumin 2.9 L Urine Color Urine Appearance Urine pH Ur Specific [place] Urine Protein Urine Glucose (UA) Urine Ketones Urine Blood Urine Nitrite Ur Leukocyte Esterase Urine WBC (Auto) Urine RBC (Auto) Blood Type Antibody Screen 07/20/18 07/20/18 07/20/18 14:36 15:56 17:15 WBC RBC Hgb Hct MCV MCH MCHC RDW Plt Count Seg Neutrophils % Lymphocytes % Monocytes % Eosinophils % Basophils % Absolute Neutrophils Absolute Lymphocytes Absolute Monocytes Absolute Eosinophils Absolute Basophils VBG pH 7.31 VBG pCO2 37.0 VBG HCO3 18.0 L VBG Base Excess -7.6 Sodium Potassium Chloride Carbon Dioxide Anion Gap BUN Creatinine Est GFR ( Amer) Est GFR (Non-Af Amer) Glucose Lactic Acid Calcium Total Bilirubin AST ALT Alkaline Phosphatase Total Protein Albumin Urine Color YELLOW Urine Appearance TURBID Urine pH 5.0 Ur Specific [place] 1.013 Urine Protein 30 H Urine Glucose (UA) NEGATIVE Urine Ketones NEGATIVE Urine Blood LARGE H Urine Nitrite NEGATIVE Ur Leukocyte Esterase SMALL H Urine WBC (Auto) 62 Urine RBC (Auto) >182 Blood Type AB POSITIVE Antibody Screen NEGATIVE 07/20/18 14:36 Troponin I 0.052 Impressions: Chest X-Ray 07/20/18 14:25 IMPRESSION: Prominent interstitial markings. No acute findings. [id number] remains in place. Assessment & Plan - Diagnosis (1) Blood loss anemia Is this a current diagnosis for this admission?: Yes (2) COPD (chronic obstructive pulmonary disease) Qualifiers: Emphysema type: unspecified Is this a current diagnosis for this admission?: Yes (3) Congestive heart failure Qualifiers: Heart failure type: diastolic Heart failure chronicity: chronic Qualified Code(s): I50.32 - Chronic diastolic (congestive) heart failure Is this a current diagnosis for this admission?: Yes (4) Kidney insufficiency Is this a current diagnosis for this admission?: Yes - Time Time Spent: 30 to 50 Minutes - Plan Summary Plan Summary: Patient does not look to be actively bleeding at this time. Patient is a DNR/DNI Daughter feels patient too weak to undergo endoscopy She will inform us when she feels more comfortable for her Dad to undergo endoscopy Continue to hold Eliquis and Plavix for now Informed daughter that her dad will need a bowel prep prior to colonoscopy. She is hesitant for her dad to have bowel prep since patient has been bedridden and will have problems with frequent BMs.
[2018-07-20] MEDS ORDERED: PANTOPRAZOLE SODIUM 40 MG VIAL IV SCH (22:00)
[2018-07-20] MEDS: NORMAL SALINE 100 ML with PANTOPRAZOLE SODIUM 80 MG IV PRN ×2 (22:08)
[2018-07-20] MEDS: DEXTROSE 5%-NORMAL SALINE 1,000 ML IV PRN (22:09)
--- NOTE | 2018-07-20 23:41 | EKG REPORT ---
SEVERITY:- ABNORMAL ECG - SINUS OR ECTOPIC ATRIAL RHYTHM FIRST DEGREE AV BLOCK PROBABLE INFERIOR INFARCT, AGE INDETERMINATE CONSIDER POSTERIOR WALL INVOLVEMENT : Confirmed by: Franc Allison 20-Jul-2018 23:40:40
[2018-07-21] MEDS: OCTREOTIDE ACETATE INJ/PF 100 MCG/1 ML SDV IV SCH ×3 (02:51→17:46)
[2018-07-21] MEDS ORDERED: HYDROCORTISONE SOD SUCCINATE INJ/PF 100 MG/2 ML SDV IV ONE (03:45)
[2018-07-21 03:47] LABS: ABSOLUTE EOSINOPHILS # (AUTO) 0.1 10^3/uL (0.0-0.6); ABSOLUTE LYMPHOCYTES (AUTO) 1.4 10^3/uL (0.5-4.7); ABSOLUTE MONOCYTES (AUTO) 0.9 10^3/uL (0.1-1.4); ABSOLUTE NEUT (AUTO) 11.1 10^3/uL (1.7-8.2); BASOPHILS % (AUTO) 0.1 % (0-2); EOSINOPHILS % (AUTO) 0.6 % (0-6); HEMATOCRIT 28.7 % (37.9-51.0); HEMOGLOBIN 9.5 g/dL (13.5-17.0); LYMPHOCYTES % (AUTO) 10.1 % (13-45); MEAN CORPUSCULAR HEMOGLOBIN 26.9 pg (27.0-33.4); MEAN CORPUSCULAR VOLUME 82 fl (80-97); MONOCYTES % (AUTO) 6.8 % (3-13); PLATELET COUNT 291 10^3/uL (150-450); RED BLOOD COUNT 3.52 10^6/uL (4.35-5.55); RED CELL DISTRIBUTION WIDTH 16.8 % (11.5-14.0); SEGMENTED NEUTROPHILS % (AUTO) 82.4 % (42-78); TOTAL CELLS COUNTED % (AUTO) 100 %; WHITE BLOOD COUNT 13.5 10^3/uL (4.0-10.5)
[2018-07-21 04:10] LABS: ANION GAP 18 (5-19); CALCIUM 8.2 mg/dL (8.4-10.2); CARBON DIOXIDE 18 mmol/L (22-30); CHLORIDE 104 mmol/L (98-107); GLUCOSE 157 mg/dL (75-110); POTASSIUM 4.9 mmol/L (3.6-5.0); SODIUM 139.9 mmol/L (137-145)
[2018-07-21 04:23] LABS: BLOOD UREA NITROGEN 198 mg/dL (7-20)
[2018-07-21] MEDS: NORMAL SALINE 100 ML with PANTOPRAZOLE SODIUM 80 MG IV PRN ×4 (06:22→15:27)
[2018-07-21] MEDS: DEXTROSE 5%-NORMAL SALINE 1,000 ML IV PRN ×2 (07:50→16:50)
--- NOTE | 2018-07-21 13:20 | PDOC PROGRESS REPORT ---
Subjective Progress Note for:: 07/21/18 Subjective:: MADALYN JOYA is a 87 year old male, [facility] resident with past medical history of hypertension, hyperlipidemia, lymphoma, COPD, DVT on Eliquis, chronic renal failure, CHF and history of MD brought from half[facility]way with chief complaint of being pale and altered mental status. He is also noticed to have melanotic stool and his stool for occult blood is positive. The above brief history is obtained from ER attending a lot since patient is nonverbal when I saw him. On arrival patient found to be hypotensive with blood pressure of 60/40 for which she was given normal saline and later his blood pressure increased to 90/60 after a bolus of normal saline. His blood work shows leukocytosis of 14.6 and hemoglobin of 7.6, BUN of 195 creatinine of 6.53 and GFR of 8. Patient got 1 unit of packed RBC. Dr. Oswald consulted on this patient. ER attending discussed with the family member and making DNR/DNI. This morning I reviewed his labs his hemoglobin increased to 9.5 after 2 units of PRBC. And his creatinine also slightly improved from 6.53-6.46. Last night he has a several episodes of melanotic stool and this morning he has only one episode. The daughter of the patient, who is the POA does not want that the patient to have colonoscopy but she agrees with this EGD. Currently the patient has been getting IV Protonix. Reason For Visit: ACUTE BLODD LOSS,ANEMIA,UPPPER GI BLEEDING Physical Exam Vital Signs: Temp Pulse Resp BP Pulse Ox 95.9 F L 52 L 15 113/57 L 97 07/21/18 12:00 07/21/18 12:33 07/21/18 12:33 07/21/18 12:00 07/21/18 12:33 Intake & Output 07/20/18 07/21/18 07/22/18 06:59 06:59 06:59 Intake Total 1282 968 Output Total 250 100 Balance 1032 868 Weight 74.7 kg General appearance: PRESENT: no acute distress Head exam: PRESENT: atraumatic Eye exam: PRESENT: conjunctiva pale Respiratory exam: PRESENT: clear to auscultation ricardo. ABSENT: rales, rhonchi, wheezes Cardiovascular exam: PRESENT: RRR. ABSENT: diastolic murmur, rubs, systolic mur mur GI/Abdominal exam: PRESENT: normal bowel sounds, soft. ABSENT: distended, guarding, mass, organolmegaly, rebound, tenderness Neurological exam: PRESENT: alert, awake Results Laboratory Results: 07/21/18 03:39 07/21/18 03:39 07/20/18 07/20/18 07/20/18 14:36 14:36 14:36 WBC 14.8 H RBC 2.80 L Hgb 7.6 L Hct 23.1 L MCV 83 MCH 27.2 MCHC 32.9 RDW 15.4 H Plt Count 338 Seg Neutrophils % 85.5 H Lymphocytes % 8.6 L Monocytes % 5.6 Eosinophils % 0.2 Basophils % 0.1 Absolute Neutrophils 12.6 H Absolute Lymphocytes 1.3 Absolute Monocytes 0.8 Absolute Eosinophils 0.0 Absolute Basophils 0.0 VBG pH VBG pCO2 VBG HCO3 VBG Base Excess Sodium 139.4 Potassium 4.7 Chloride 101 Carbon Dioxide 19 L Anion Gap 19 BUN 195 H Creatinine 6.53 H Est GFR ( Amer) 10 L Est GFR (Non-Af Amer) 8 L Glucose 117 H Lactic Acid 1.0 Calcium 8.5 Total Bilirubin 0.5 AST 27 ALT 27 Alkaline Phosphatase 123 Total Protein 5.9 L Albumin 2.9 L Urine Color Urine Appearance Urine pH Ur Specific [place] Urine Protein Urine Glucose (UA) Urine Ketones Urine Blood Urine Nitrite Ur Leukocyte Esterase Urine WBC (Auto) Urine RBC (Auto) Blood Type Antibody Screen 07/20/18 07/20/18 07/20/18 14:36 15:56 17:15 WBC RBC Hgb Hct MCV MCH MCHC RDW Plt Count Seg Neutrophils % Lymphocytes % Monocytes % Eosinophils % Basophils % Absolute Neutrophils Absolute Lymphocytes Absolute Monocytes Absolute Eosinophils Absolute Basophils VBG pH 7.31 VBG pCO2 37.0 VBG HCO3 18.0 L VBG Base Excess -7.6 Sodium Potassium Chloride Carbon Dioxide Anion Gap BUN Creatinine Est GFR ( Amer) Est GFR (Non-Af Amer) Glucose Lactic Acid Calcium Total Bilirubin AST ALT Alkaline Phosphatase Total Protein Albumin Urine Color YELLOW Urine Appearance TURBID Urine pH 5.0 Ur Specific [place] 1.013 Urine Protein 30 H Urine Glucose (UA) NEGATIVE Urine Ketones NEGATIVE Urine Blood LARGE H Urine Nitrite NEGATIVE Ur Leukocyte Esterase SMALL H Urine WBC (Auto) 62 Urine RBC (Auto) >182 Blood Type AB POSITIVE Antibody Screen NEGATIVE 07/21/18 07/21/18 03:39 03:39 WBC 13.5 H RBC 3.52 L Hgb 9.5 L Hct 28.7 L MCV 82 MCH 26.9 L MCHC 33.0 RDW 16.8 H Plt Count 291 Seg Neutrophils % 82.4 H Lymphocytes % 10.1 L Monocytes % 6.8 Eosinophils % 0.6 Basophils % 0.1 Absolute Neutrophils 11.1 H Absolute Lymphocytes 1.4 Absolute Monocytes 0.9 Absolute Eosinophils 0.1 Absolute Basophils 0.0 VBG pH VBG pCO2 VBG HCO3 VBG Base Excess Sodium 139.9 Potassium 4.9 Chloride 104 Carbon Dioxide 18 L Anion Gap 18 BUN 198 H Creatinine 6.46 H Est GFR ( Amer) 10 L Est GFR (Non-Af Amer) 8 L Glucose 157 H Lactic Acid Calcium 8.2 L Total Bilirubin AST ALT Alkaline Phosphatase Total Protein Albumin Urine Color Urine Appearance Urine pH Ur Specific [place] Urine Protein Urine Glucose (UA) Urine Ketones Urine Blood Urine Nitrite Ur Leukocyte Esterase Urine WBC (Auto) Urine RBC (Auto) Blood Type Antibody Screen 07/20/18 14:36 Troponin I 0.052 Impressions: Chest X-Ray 07/20/18 14:25 IMPRESSION: Prominent interstitial markings. No acute findings. [id number] remains in place. Assessment and Plan - Diagnosis (1) Acute blood loss anemia Is this a current diagnosis for this admission?: Yes Plan: Status post 2 units PRBC. Globin trended up to 9.5. Continue IV Protonix and hold Eliquis. Patient seen and evaluated by Dr. Young. 0. Refused colonoscopy but agreed with this EGD. (2) Upper GI bleeding Is this a current diagnosis for this admission?: Yes Plan: Currently patient is getting IV Protonix. The frequency of melanotic stool is decreasing. (3) COPD (chronic obstructive pulmonary disease) Qualifiers: Emphysema type: unspecified Is this a current diagnosis for this admission?: Yes Plan: Patient does not have shortness of breath or wheezing. We will put him on PRN bronchodilators. (4) Hypertension Qualifiers: Hypertension type: essential hypertension Qualified Code(s): I10 - Essential (primary) hypertension Is this a current diagnosis for this admission?: Yes Plan: I will hold his home antihypertensive regimen patient's since patient currently hypotensive (5) Hyperlipidemia Qualifiers: Hyperlipidemia type: unspecified Qualified Code(s): E78.5 - Hyperlipidemia, unspecified Is this a current diagnosis for this admission?: Yes Plan: Continue home medication
[2018-07-21] MEDS ORDERED: NORMAL SALINE 1000 ML 1,000 ML IV ONE (19:00)
[2018-07-21 19:34] LABS: HEMATOCRIT 22.6 % (37.9-51.0); MEAN CORPUSCULAR HEMOGLOBIN 27.5 pg (27.0-33.4); MEAN CORPUSCULAR HGB CONC 33.8 g/dL (32.0-36.0); MEAN CORPUSCULAR VOLUME 81 fl (80-97); PLATELET COUNT 246 10^3/uL (150-450); RED BLOOD COUNT 2.77 10^6/uL (4.35-5.55); RED CELL DISTRIBUTION WIDTH 17.2 % (11.5-14.0); WHITE BLOOD COUNT 11.3 10^3/uL (4.0-10.5)
[2018-07-21 19:38] LABS: HEMOGLOBIN 7.6 g/dL (13.5-17.0)
[2018-07-21] MEDS ORDERED: NORMAL SALINE 1000 ML 1,000 ML IV SCH (19:45)
[2018-07-21] MEDS ORDERED: DESMOPRESSIN ACETATE IV ONE (21:30)
[2018-07-21] MEDS ORDERED: NORMAL SALINE IV ONE (21:30)
[2018-07-21] MEDS ORDERED: PHYTONADIONE INJ 10 MG/1 ML AMPULE SUBCUT ONE (22:15)
[2018-07-21 23:18] LABS: INTERNATIONAL RATION (INR) 2.17; PROTHROMBIN TIME 25.2 SEC (11.4-15.4)
[2018-07-22] MEDS: DEXTROSE 5%-NORMAL SALINE 1,000 ML IV PRN ×3 (01:26→20:16)
[2018-07-22] MEDS: NORMAL SALINE 100 ML with PANTOPRAZOLE SODIUM 80 MG IV PRN ×4 (01:29→12:12)
[2018-07-22] MEDS: OCTREOTIDE ACETATE INJ/PF 100 MCG/1 ML SDV IV SCH ×3 (06:09→22:50)
[2018-07-22] MEDS ORDERED: NORMAL SALINE 250 ML IV PRN ×2 (08:09)
[2018-07-22 08:32] LABS: ABSOLUTE LYMPHOCYTES (AUTO) 0.8 10^3/uL (0.5-4.7); ABSOLUTE MONOCYTES (AUTO) 0.8 10^3/uL (0.1-1.4); ABSOLUTE NEUT (AUTO) 8.3 10^3/uL (1.7-8.2); BASOPHILS % (AUTO) 0.1 % (0-2); EOSINOPHILS % (AUTO) 0.1 % (0-6); HEMATOCRIT 27.9 % (37.9-51.0); HEMOGLOBIN 9.3 g/dL (13.5-17.0); LYMPHOCYTES % (AUTO) 7.7 % (13-45); MEAN CORPUSCULAR HEMOGLOBIN 27.9 pg (27.0-33.4); MEAN CORPUSCULAR HGB CONC 33.5 g/dL (32.0-36.0); MEAN CORPUSCULAR VOLUME 84 fl (80-97); MONOCYTES % (AUTO) 7.9 % (3-13); PLATELET COUNT 251 10^3/uL (150-450); RED BLOOD COUNT 3.34 10^6/uL (4.35-5.55); RED CELL DISTRIBUTION WIDTH 16.7 % (11.5-14.0); SEGMENTED NEUTROPHILS % (AUTO) 84.2 % (42-78); TOTAL CELLS COUNTED % (AUTO) 100 %; WHITE BLOOD COUNT 9.8 10^3/uL (4.0-10.5)
[2018-07-22 08:46] LABS: PROTHROMBIN TIME 22.7 SEC (11.4-15.4)
--- NOTE | 2018-07-22 14:13 | PDOC PROGRESS REPORT ---
Subjective Progress Note for:: 07/22/18 Subjective:: Patient continues to have melanotic stool. His hemoglobin dropped from 9.5-7.5 and he was transfused additional [address] RBC[address] Dr[address] Dan and myself have had long discussion with the POA and other family members regarding the need to have upper endoscopy and colonoscopy. The POA and other family members now currently discussing the possibility of transition to comfort care. Reason For Visit: ACUTE BLODD LOSS,ANEMIA,UPPPER GI BLEEDING Physical Exam Vital Signs: Temp Pulse Resp BP Pulse Ox 98.6 F 67 17 90/48 L 95 07/22/18 11:00 07/22/18 10:00 07/22/18 11:00 07/22/18 10:40 07/22/18 11:00 Intake & Output 07/21/18 07/22/18 07/23/18 06:59 06:59 06:59 Intake Total 1282 1814.6 1000 Output Total 250 660 160 Balance 1032 1154.6 840 Weight 74.7 kg 82 kg General appearance: PRESENT: mild distress Eye exam: PRESENT: conjunctiva pale Neck exam: ABSENT: carotid bruit, JVD, lymphadenopathy, thyromegaly Respiratory exam: PRESENT: clear to auscultation ircardo. ABSENT: rales, rhonchi, wheezes Cardiovascular exam: PRESENT: RRR. ABSENT: diastolic murmur, rubs, systolic murmur Neurological exam: PRESENT: alert, awake Results Laboratory Results: 07/22/18 08:23 07/21/18 03:39 07/20/18 07/21/18 07/22/18 15:56 19:14 08:23 WBC 11.3 H 9.8 RBC 2.77 L 3.34 L Hgb 7.6 L 9.3 L Hct 22.6 L 27.9 L MCV 81 84 MCH 27.5 27.9 MCHC 33.8 33.5 RDW 17.2 H 16.7 H Plt Count 246 251 Seg Neutrophils % 84.2 H Lymphocytes % 7.7 L Monocytes % 7.9 Eosinophils % 0.1 Basophils % 0.1 Absolute Neutrophils 8.3 H Absolute Lymphocytes 0.8 Absolute Monocytes 0.8 Absolute Eosinophils 0.0 Absolute Basophils 0.0 Blood Type AB POSITIVE Antibody Screen NEGATIVE 07/20/18 17:15 Catheterized Urine Urine Culture - Final NO GROWTH 2 DAYS 07/20/18 14:36 Troponin I 0.052 Impressions: Chest X-Ray 07/20/18 14:25 IMPRESSION: Prominent interstitial markings. No acute findings. [id number] remains in place. Assessment and Plan - Diagnosis (1) Acute blood loss anemia Is this a current diagnosis for this admission?: Yes Plan: Patient continued to have melenic stool and his hemoglobin is keep dropping. He got a total of 4 units of packed RBC. Patient has been on Protonix IV. Family has not given their consent for colonoscopy or upper endoscopy. (2) Upper GI bleeding Is this a current diagnosis for this admission?: Yes Plan: Currently patient is getting IV Protonix. The frequency of melanotic stool is decreasing. (3) COPD (chronic obstructive pulmonary disease) Qualifiers: Emphysema type: unspecified Is this a current diagnosis for this admission?: Yes Plan: Patient does not have shortness of breath or wheezing. We will put him on PRN bronchodilators. (4) Hypertension Qualifiers: Hypertension type: essential hypertension Qualified Code(s): I10 - Essential (primary) hypertension Is this a current diagnosis for this admission?: Yes Plan: I will hold his home antihypertensive regimen patient's since patient currently hypotensive (5) Hyperlipidemia Qualifiers: Hyperlipidemia type: unspecified Qualified Code(s): E78.5 - Hyperlipidemia, unspecified Is this a current diagnosis for this admission?: Yes Plan: Continue home medication
[2018-07-22] MEDS ORDERED: VANCOMYCIN HCL 0 MG in DEXTROSE 5%-WATER 250 ML IV NR (14:15)
[2018-07-22] MEDS ORDERED: VANCOMYCIN HCL 500 MG in DEXTROSE 5%-WATER 100 ML IV ONE (15:00)
[2018-07-22] MEDS ORDERED: DESMOPRESSIN ACETATE INJ 4 MCG/1 ML AMPULE IV ONE (19:49)
[2018-07-23] MEDS: NORMAL SALINE 100 ML with PANTOPRAZOLE SODIUM 80 MG IV PRN ×4 (00:08→10:44)
[2018-07-23] MEDS: DEXTROSE 5%-NORMAL SALINE 1,000 ML IV PRN ×3 (04:07→20:02)
[2018-07-23 04:08] LABS: ABSOLUTE LYMPHOCYTES (AUTO) 1.4 10^3/uL (0.5-4.7); ABSOLUTE NEUT (AUTO) 10.8 10^3/uL (1.7-8.2); BASOPHILS % (AUTO) 0.1 % (0-2); EOSINOPHILS % (AUTO) 0.3 % (0-6); HEMATOCRIT 34.5 % (37.9-51.0); HEMOGLOBIN 11.1 g/dL (13.5-17.0); LYMPHOCYTES % (AUTO) 10.5 % (13-45); MEAN CORPUSCULAR HEMOGLOBIN 27.1 pg (27.0-33.4); MEAN CORPUSCULAR HGB CONC 32.1 g/dL (32.0-36.0); MEAN CORPUSCULAR VOLUME 84 fl (80-97); MONOCYTES % (AUTO) 7.5 % (3-13); PLATELET COUNT 278 10^3/uL (150-450); RED BLOOD COUNT 4.08 10^6/uL (4.35-5.55); RED CELL DISTRIBUTION WIDTH 16.8 % (11.5-14.0); SEGMENTED NEUTROPHILS % (AUTO) 81.6 % (42-78); TOTAL CELLS COUNTED % (AUTO) 100 %; WHITE BLOOD COUNT 13.2 10^3/uL (4.0-10.5)
[2018-07-23] MEDS: OCTREOTIDE ACETATE INJ/PF 100 MCG/1 ML SDV IV SCH ×3 (06:28→22:20)
[2018-07-23 08:59] LABS: HEMATOCRIT 32.8 % (37.9-51.0); HEMOGLOBIN 10.6 g/dL (13.5-17.0); MEAN CORPUSCULAR HEMOGLOBIN 27.4 pg (27.0-33.4); MEAN CORPUSCULAR HGB CONC 32.2 g/dL (32.0-36.0); MEAN CORPUSCULAR VOLUME 85 fl (80-97); PLATELET COUNT 262 10^3/uL (150-450); RED BLOOD COUNT 3.86 10^6/uL (4.35-5.55); RED CELL DISTRIBUTION WIDTH 16.6 % (11.5-14.0); WHITE BLOOD COUNT 13.4 10^3/uL (4.0-10.5)
[2018-07-23 09:17] LABS: ANION GAP 14 (5-19); CALCIUM 7.8 mg/dL (8.4-10.2); CARBON DIOXIDE 13 mmol/L (22-30); CHLORIDE 121 mmol/L (98-107); GLUCOSE 158 mg/dL (75-110); POTASSIUM 4.6 mmol/L (3.6-5.0); SODIUM 147.6 mmol/L (137-145)
[2018-07-23 09:23] LABS: BLOOD UREA NITROGEN > 120 mg/dL (7-20)
--- NOTE | 2018-07-23 12:43 | PDOC PROGRESS REPORT ---
Subjective Progress Note for:: 07/23/18 Subjective:: Patient seen resting in bed. His hemoglobin increased from 7.6-11.1 after 4 units of packed RBC. No significant change overnight. His blood culture is positive for gram-positive cocci in clusters so patient started on vancomycin empirically. And based on culture and sensitivity results will de-escalate or escalate. Reason For Visit: ACUTE BLODD LOSS,ANEMIA,UPPPER GI BLEEDING Physical Exam Vital Signs: Temp Pulse Resp BP Pulse Ox 98.6 F 63 14 110/51 L 98 07/23/18 12:00 07/23/18 12:00 07/23/18 12:00 07/23/18 12:00 07/23/18 12:00 Intake & Output 07/22/18 07/23/18 07/24/18 06:59 06:59 06:59 Intake Total 1814.6 2981 990 Output Total 660 1140 430 Balance 1154.6 1841 560 Weight 82 kg 83.1 kg Results Laboratory Results: 07/23/18 08:45 07/23/18 08:45 07/23/18 07/23/18 07/23/18 03:48 08:45 08:45 WBC 13.2 H 13.4 H RBC 4.08 L 3.86 L Hgb 11.1 L 10.6 L Hct 34.5 L 32.8 L MCV 84 85 MCH 27.1 27.4 MCHC 32.1 32.2 RDW 16.8 H 16.6 H Plt Count 278 262 Seg Neutrophils % 81.6 H Lymphocytes % 10.5 L Monocytes % 7.5 Eosinophils % 0.3 Basophils % 0.1 Absolute Neutrophils 10.8 H Absolute Lymphocytes 1.4 Absolute Monocytes 1.0 Absolute Eosinophils 0.0 Absolute Basophils 0.0 Sodium 147.6 H Potassium 4.6 Chloride 121 H Carbon Dioxide 13 L Anion Gap 14 BUN > 120 H Creatinine 5.71 H Est GFR ( Amer) 11 L Est GFR (Non-Af Amer) 9 L Glucose 158 H Calcium 7.8 L 07/20/18 17:15 Catheterized Urine Urine Culture - Final NO GROWTH 2 DAYS 07/20/18 14:36 Troponin I 0.052 Impressions: Chest X-Ray 07/20/18 14:25 IMPRESSION: Prominent interstitial markings. No acute findings. Tdztcy-[id number] remains in place. Assessment and Plan - Diagnosis (1) Gram-positive bacteremia Is this a current diagnosis for this admission?: Yes Plan: Empirically started on vancomycin. (2) Acute blood loss anemia Is this a current diagnosis for this admission?: Yes Plan: Patient continued to have melenic stool and his hemoglobin is keep dropping. He got a total of 4 units of packed RBC. Patient has been on Protonix IV. Family has not given their consent for colonoscopy or upper endoscopy. (3) Upper GI bleeding Is this a current diagnosis for this admission?: Yes Plan: Currently patient is getting IV Protonix. The frequency of melanotic stool is decreasing. (4) COPD (chronic obstructive pulmonary disease) Qualifiers: Emphysema type: unspecified Is this a current diagnosis for this admission?: Yes Plan: Patient does not have shortness of breath or wheezing. We will put him on PRN bronchodilators. (5) Hypertension Qualifiers: Hypertension type: essential hypertension Qualified Code(s): I10 - Essential (primary) hypertension Is this a current diagnosis for this admission?: Yes Plan: I will hold his home antihypertensive regimen patient's since patient currently hypotensive (6) Hyperlipidemia Qualifiers: Hyperlipidemia type: unspecified Qualified Code(s): E78.5 - Hyperlipidemia, unspecified Is this a current diagnosis for this admission?: Yes Plan: Continue home medication
[2018-07-23] MEDS ORDERED: MORPHINE SULFATE 10 MG/ML INJ IV PRN (15:07)
[2018-07-23] MEDS ORDERED: CALCIUM CARBONATE 250 MG/VITAMIN D3 125 UNIT TABLET PO SCH (18:00)
--- NOTE | 2018-07-23 21:07 | PDOC PROGRESS REPORT ---
Subjective Progress Note for:: 07/23/18 Reason For Visit: ACUTE BLODD LOSS,ANEMIA,UPPPER GI BLEEDING Physical Exam Vital Signs: Temp Pulse Resp BP Pulse Ox 97.5 F 75 9 L 124/57 L 99 07/23/18 18:00 07/23/18 18:00 07/23/18 18:00 07/23/18 18:00 07/23/18 18:00 Intake & Output 07/22/18 07/23/18 07/24/18 06:59 06:59 06:59 Intake Total 1814.6 2981 1989 Output Total 660 1140 740 Balance 1154.6 1841 1250 Weight 82 kg 83.1 kg Exam: abd is soft Results Laboratory Results: 07/23/18 08:45 07/23/18 08:45 07/23/18 07/23/18 07/23/18 03:48 08:45 08:45 WBC 13.2 H 13.4 H RBC 4.08 L 3.86 L Hgb 11.1 L 10.6 L Hct 34.5 L 32.8 L MCV 84 85 MCH 27.1 27.4 MCHC 32.1 32.2 RDW 16.8 H 16.6 H Plt Count 278 262 Seg Neutrophils % 81.6 H Lymphocytes % 10.5 L Monocytes % 7.5 Eosinophils % 0.3 Basophils % 0.1 Absolute Neutrophils 10.8 H Absolute Lymphocytes 1.4 Absolute Monocytes 1.0 Absolute Eosinophils 0.0 Absolute Basophils 0.0 Sodium 147.6 H Potassium 4.6 Chloride 121 H Carbon Dioxide 13 L Anion Gap 14 BUN > 120 H Creatinine 5.71 H Est GFR ( Amer) 11 L Est GFR (Non-Af Amer) 9 L Glucose 158 H Calcium 7.8 L 07/20/18 14:36 Troponin I 0.052 Impressions: Chest X-Ray 07/20/18 14:25 IMPRESSION: Prominent interstitial markings. No acute findings. Xfdjva-X-[id number] remains in place. Assessment & Plan - Diagnosis (1) Blood loss anemia Is this a current diagnosis for this admission?: Yes (2) COPD (chronic obstructive pulmonary disease) Qualifiers: Emphysema type: unspecified Is this a current diagnosis for this admission?: Yes (3) Congestive heart failure Qualifiers: Heart failure type: diastolic Heart failure chronicity: chronic Qualified Code(s): I50.32 - Chronic diastolic (congestive) heart failure Is this a current diagnosis for this admission?: Yes (4) Kidney insufficiency Is this a current diagnosis for this admission?: Yes - Time Time Spent with patient: 15-24 minutes - Plan Summary Plan Summary: Had another long talk with patient's daughters. Since they are not agreeing to definitive surgical intervention and patient does not look stable enough for any diagnostic findings,subjecting this patient to procedures ie, colonoscopy,EGD is not indicated. This was apparently the discussion they had with Dr Husain yesterday. They still have the same mindset and i agree with them to hold off procedures at this time. Pts H/H stabilizing with PT/INR improving though still elevated.
[2018-07-24] MEDS: OCTREOTIDE ACETATE INJ/PF 100 MCG/1 ML SDV IV SCH ×3 (05:34→22:47)
[2018-07-24] MEDS: DEXTROSE 5%-NORMAL SALINE 1,000 ML IV PRN ×2 (08:18→19:21)
[2018-07-24 08:45] LABS: ABSOLUTE EOSINOPHILS # (AUTO) 0.2 10^3/uL (0.0-0.6); ABSOLUTE LYMPHOCYTES (AUTO) 1.1 10^3/uL (0.5-4.7); ABSOLUTE MONOCYTES (AUTO) 0.9 10^3/uL (0.1-1.4); ABSOLUTE NEUT (AUTO) 13.8 10^3/uL (1.7-8.2); BASOPHILS % (AUTO) 0.1 % (0-2); EOSINOPHILS % (AUTO) 0.9 % (0-6); HEMATOCRIT 34.2 % (37.9-51.0); LYMPHOCYTES % (AUTO) 6.8 % (13-45); MEAN CORPUSCULAR HEMOGLOBIN 27.5 pg (27.0-33.4); MEAN CORPUSCULAR VOLUME 86 fl (80-97); MONOCYTES % (AUTO) 5.8 % (3-13); PLATELET COUNT 336 10^3/uL (150-450); RED BLOOD COUNT 3.98 10^6/uL (4.35-5.55); RED CELL DISTRIBUTION WIDTH 17.4 % (11.5-14.0); SEGMENTED NEUTROPHILS % (AUTO) 86.4 % (42-78); TOTAL CELLS COUNTED % (AUTO) 100 %
[2018-07-24 08:50] LABS: ANION GAP 14 (5-19); CALCIUM 7.9 mg/dL (8.4-10.2); CARBON DIOXIDE 16 mmol/L (22-30); CHLORIDE 122 mmol/L (98-107); GLUCOSE 111 mg/dL (75-110); POTASSIUM 4.7 mmol/L (3.6-5.0); SODIUM 151.5 mmol/L (137-145)
[2018-07-24 08:57] LABS: BLOOD UREA NITROGEN 139 mg/dL (7-20)
--- NOTE | 2018-07-24 10:48 | PDOC PROGRESS REPORT ---
Subjective Progress Note for:: 07/24/18 Subjective:: Patient seen lying in bed comfortably. The frequency and the volume of his melanotic stool has decreased remarkably. His hemoglobin maintained between 10 and 11. In addition to Dr. Dan yesterday Dr. Adamson had a long discussion with the family member and patient's daughter regarding the risk and benefits of doing upper and lower endoscopy. Reportedly the family opted out of procedure. The daughter does not want him to go back to [facility] half-way and the program services planner offered as a possible half-way choices. The daughter will have discussion tomorrow with palliative care. Reason For Visit: ACUTE BLODD LOSS,ANEMIA,UPPPER GI BLEEDING Physical Exam Vital Signs: Temp Pulse Resp BP Pulse Ox 98.2 F 86 15 122/65 100 07/24/18 10:00 07/24/18 10:00 07/24/18 10:00 07/24/18 10:00 07/24/18 10:00 Intake & Output 07/23/18 07/24/18 07/25/18 06:59 06:59 06:59 Intake Total 2981 2990 Output Total 1140 1160 270 Balance 1841 1830 -270 Weight 83.1 kg 85.5 kg General appearance: PRESENT: no acute distress Head exam: PRESENT: atraumatic Mouth exam: PRESENT: dry mucosa Neck exam: ABSENT: carotid bruit, JVD, lymphadenopathy, thyromegaly Respiratory exam: PRESENT: clear to auscultation ricardo. ABSENT: rales, rhonchi, wheezes Cardiovascular exam: PRESENT: RRR. ABSENT: diastolic murmur, rubs, systolic murmur GI/Abdominal exam: PRESENT: normal bowel sounds, soft. ABSENT: distended, guarding, mass, organolmegaly, rebound, tenderness Neurological exam: PRESENT: alert, awake Results Laboratory Results: 07/24/18 08:22 07/24/18 08:22 07/24/18 07/24/18 08:22 08:22 WBC 16.0 H RBC 3.98 L Hgb 11.0 L Hct 34.2 L MCV 86 MCH 27.5 MCHC 32.0 RDW 17.4 H Plt Count 336 Seg Neutrophils % 86.4 H Lymphocytes % 6.8 L Monocytes % 5.8 Eosinophils % 0.9 Basophils % 0.1 Absolute Neutrophils 13.8 H Absolute Lymphocytes 1.1 Absolute Monocytes 0.9 Absolute Eosinophils 0.2 Absolute Basophils 0.0 Sodium 151.5 H Potassium 4.7 Chloride 122 H Carbon Dioxide 16 L Anion Gap 14 BUN 139 H Creatinine 5.49 H Est GFR ( Amer) 12 L Est GFR (Non-Af Amer) 10 L Glucose 111 H Calcium 7.9 L 07/20/18 14:36 Troponin I 0.052 Impressions: Chest X-Ray 07/20/18 14:25 IMPRESSION: Prominent interstitial markings. No acute findings. [id number]-[id number] remains in place. Assessment and Plan - Diagnosis (1) Gram-positive bacteremia Is this a current diagnosis for this admission?: Yes Plan: Continue vancomycin (2) Acute blood loss anemia Is this a current diagnosis for this admission?: Yes Plan: H&H stable (3) Upper GI bleeding Is this a current diagnosis for this admission?: Yes Plan: The frequency and volume of his meal and still has been decreasing. (4) COPD (chronic obstructive pulmonary disease) Qualifiers: Emphysema type: unspecified Is this a current diagnosis for this admission?: Yes Plan: Patient does not have shortness of breath or wheezing. We will put him on PRN bronchodilators. (5) Hypertension Qualifiers: Hypertension type: essential hypertension Qualified Code(s): I10 - Essential (primary) hypertension Is this a current diagnosis for this admission?: Yes Plan: I will hold his home antihypertensive regimen patient's since patient currently hypotensive (6) Hyperlipidemia Qualifiers: Hyperlipidemia type: unspecified Qualified Code(s): E78.5 - Hyperlipidemia, unspecified Is this a current diagnosis for this admission?: Yes Plan: Continue home medication
[2018-07-24] MEDS: IPRATROPIUM/ALBUTEROL 0.5-2.5 MG/3 ML AMPUL NEB PRN (13:51)
[2018-07-24] MEDS: VANCOMYCIN HCL 500 MG in DEXTROSE 5%-WATER 100 ML IV SCH (15:26)
[2018-07-24] MEDS ORDERED: OCTREOTIDE ACETATE INJ/PF 100 MCG/1 ML SDV ONE (22:28)
[2018-07-25 04:46] LABS: HEMATOCRIT 32.5 % (37.9-51.0); HEMOGLOBIN 10.5 g/dL (13.5-17.0); MEAN CORPUSCULAR HEMOGLOBIN 27.3 pg (27.0-33.4); MEAN CORPUSCULAR HGB CONC 32.4 g/dL (32.0-36.0); MEAN CORPUSCULAR VOLUME 84 fl (80-97); PLATELET COUNT 323 10^3/uL (150-450); RED BLOOD COUNT 3.86 10^6/uL (4.35-5.55); RED CELL DISTRIBUTION WIDTH 17.5 % (11.5-14.0); WHITE BLOOD COUNT 17.5 10^3/uL (4.0-10.5)
[2018-07-25] MEDS ORDERED: OCTREOTIDE ACETATE INJ/PF 100 MCG/1 ML SDV ONE ×2 (06:02→20:56)
[2018-07-25] MEDS: OCTREOTIDE ACETATE INJ/PF 100 MCG/1 ML SDV IV SCH ×3 (06:09→21:51)
[2018-07-25] MEDS: DEXTROSE 5%-NORMAL SALINE 1,000 ML IV PRN ×2 (11:51→21:53)
--- NOTE | 2018-07-25 13:39 | PDOC PROGRESS REPORT ---
Subjective Progress Note for:: 07/25/18 Subjective:: MADALYN JOYA is a 87 [facility] male, [facility] with past medical history of hypertension, hyperlipidemia, lymphoma, COPD, DVT on Eliquis, chronic renal failure, CHF and history of IA brought from assisted with chief complaint of being pale and altered mental status. He is also noticed to have melanotic stool and his stool for occult blood is positive. The above brief history is obtained from ER attending a lot since patient is nonverbal when I saw him. On arrival patient found to be hypotensive with blood pressure of 60/40 for which she was given normal saline and later his blood pressure increased to 90/60 after a bolus of normal saline. His blood work shows leukocytosis of 14.6 and hemoglobin of 7.6, BUN of 195 creatinine of 6.53 and GFR of 8. Patient got 1 unit of packed RBC. Dr. Adamson consulted on this patient. ER attending discussed with the family member and making DNR/DNI. Patient has been managed with Protonix IV every 12 hours. Patient has been transfused 4 units of PRBC. His preliminary blood culture grew gram-positive cocci in cluster so patient put on vancomycin empirically.Patient seen lying in bed comfortably. The frequency and the volume of his melanotic stool has decreased remarkably. His hemoglobin maintained between 10 and 11. In addition to Dr. Dan yesterday Dr. Adamson had a long discussion with the family member and patient's daughter regarding the risk and benefits of doing upper and lower endoscopy and the family opted for no endoscopy. The daughter does not want him to go back to [place] [facility] assisted and the land planner offered as a possible assisted choices. The daughter will have discussion tomorrow with palliative care. Reason For Visit: ACUTE BLODD LOSS,ANEMIA,UPPPER GI BLEEDING Physical Exam Vital Signs: Temp Pulse Resp BP Pulse Ox 98.3 F 36 L 21 H 156/87 H 96 07/25/18 11:43 07/25/18 11:43 07/25/18 11:43 07/25/18 11:43 07/25/18 11:43 Intake & Output 07/24/18 07/25/18 07/26/18 06:59 06:59 06:59 Intake Total 2990 1359 1221 Output Total 1160 1201 350 Balance 1830 158 871 Weight 85.5 kg 84.7 kg General appearance: PRESENT: no acute distress Eye exam: PRESENT: conjunctival injection Neck exam: ABSENT: carotid bruit, JVD, lymphadenopathy, thyromegaly Respiratory exam: PRESENT: clear to auscultation ricardo. ABSENT: rales, rhonchi, wheezes GI/Abdominal exam: PRESENT: normal bowel sounds, soft. ABSENT: distended, guarding, mass, organolmegaly, rebound, tenderness Neurological exam: PRESENT: alert, awake Results Laboratory Results: 07/25/18 04:23 07/24/18 08:22 07/25/18 04:23 WBC 17.5 H RBC 3.86 L Hgb 10.5 L Hct 32.5 L MCV 84 MCH 27.3 MCHC 32.4 RDW 17.5 H Plt Count 323 07/20/18 14:36 Troponin I 0.052 Impressions: Chest X-Ray 07/20/18 14:25 IMPRESSION: Prominent interstitial markings. No acute findings. Pjvjfi-B-Pbin remains in place. Assessment and Plan - Diagnosis (1) Gram-positive bacteremia Is this a current diagnosis for this admission?: Yes Plan: Continue vancomycin (2) Acute blood loss anemia Is this a current diagnosis for this admission?: Yes Plan: H&H stable (3) Upper GI bleeding Is this a current diagnosis for this admission?: Yes Plan: The frequency and volume of his meal and still has been decreasing. (4) COPD (chronic obstructive pulmonary disease) Qualifiers: Emphysema type: unspecified Is this a current diagnosis for this admission?: Yes Plan: Patient does not have shortness of breath or wheezing. We will put him on PRN bronchodilators. (5) Hypertension Qualifiers: Hypertension type: essential hypertension Qualified Code(s): I10 - Essential (primary) hypertension Is this a current diagnosis for this admission?: Yes Plan: I will hold his home antihypertensive regimen patient's since patient currently hypotensive (6) Hyperlipidemia Qualifiers: Hyperlipidemia type: unspecified Qualified Code(s): E78.5 - Hyperlipidemia, unspecified Is this a current diagnosis for this admission?: Yes Plan: Continue home medication
[2018-07-25] MEDS: CIPROFLOXACIN HCL 0.3% OPH SOLN 2.5 ML OU SCH ×2 (16:09→18:58)
[2018-07-25 19:27] LABS: VANCOMYCIN,TROUGH 8.7 ug/mL (5.0-20.0)
[2018-07-26] MEDS: IPRATROPIUM/ALBUTEROL 0.5-2.5 MG/3 ML AMPUL NEB PRN (00:36)
[2018-07-26 05:22] LABS: HEMATOCRIT 32.4 % (37.9-51.0); HEMOGLOBIN 10.3 g/dL (13.5-17.0); MEAN CORPUSCULAR HEMOGLOBIN 27.2 pg (27.0-33.4); MEAN CORPUSCULAR HGB CONC 31.9 g/dL (32.0-36.0); MEAN CORPUSCULAR VOLUME 85 fl (80-97); RED BLOOD COUNT 3.81 10^6/uL (4.35-5.55); RED CELL DISTRIBUTION WIDTH 17.8 % (11.5-14.0); WHITE BLOOD COUNT 21.3 10^3/uL (4.0-10.5)
[2018-07-26] MEDS: OCTREOTIDE ACETATE INJ/PF 100 MCG/1 ML SDV IV SCH ×3 (05:25→21:41)
[2018-07-26 05:35] LABS: ANION GAP 11 (5-19); CALCIUM 8.2 mg/dL (8.4-10.2); CARBON DIOXIDE 15 mmol/L (22-30); CHLORIDE 129 mmol/L (98-107); GLUCOSE 216 mg/dL (75-110); POTASSIUM 4.1 mmol/L (3.6-5.0); SODIUM 154.8 mmol/L (137-145)
[2018-07-26 05:49] LABS: BLOOD UREA NITROGEN 129 mg/dL (7-20)
[2018-07-26 06:10] LABS: ABSOLUTE LYMPHOCYTES# (MANUAL) 0.4 10^3/uL (0.5-4.7); ABSOLUTE MONOCYTES # (MANUAL) 0.9 10^3/uL (0.1-1.4); BAND NEUTROPHILS % (MANUAL) 1 % (3-5); BASOPHILS % (MANUAL) 0 % (0-2); EOSINOPHILS % (MANUAL) 0 % (0-6); LYMPHOCYTES % (MANUAL) 2 % (13-45); MONOCYTES % (MANUAL) 4 % (3-13); SEGMENTED NEUTROPHILS % (MAN) 93 % (42-78); TOTAL CELLS COUNTED 100
[2018-07-26 06:14] LABS: ANISOCYTOSIS 1+; BURR CELLS 2+; OVALOCYTES 2+; PLATELET CLUMPS PRESENT; PLATELET COMMENT ADEQUATE; PLATELET COUNT 311 10^3/uL (150-450); POIKILOCYTOSIS SLIGHT; TOXIC GRANULATION 1+
[2018-07-26] MEDS: CIPROFLOXACIN HCL 0.3% OPH SOLN 2.5 ML OU SCH ×3 (11:00→18:28)
[2018-07-26] MEDS: DEXTROSE 5%-NORMAL SALINE 1,000 ML IV PRN (11:02)
--- NOTE | 2018-07-26 14:36 | Progress Note ---
Provider Note Provider Note: ID Consult Note Asked by Pharmacy to review patient's chart. Pt not seen or examined. Mr. Adair is a 87 year old man with PMH including COPD, lymphoma, HTN, HLD, CAD, DVT on chronic anticoagulation, CHF, and CKD admitted [facility]/18 from [facility] with chief complaint of pallor, decreased energy, and AMS. He was noted to have melanotic stool and hypotension on arrival. He was afebrile, hypothermic or normothermic during his hospitalization. His initial labs showed leukocytosis, which has remained, along with acute kidney injury with creatinine 6.5, now hypernatremia. CXR showed prominent intersitial markings. He has a port. Blood cultures on admission showed growth in 1 of four bottles of Staphylococcus capitis. Urine culture had no growth. He has been transfused pRBCs and managed supportively. He has also been receiving vancomycin. Impression/Recommendations The growth of Staphylococcus capitis in one blood culture bottle on admission appears to be most consistent with pseudobacteremia or blood culture contamination rather than a true bloodstream infection. SIRS response with leukocytosis and/or fever has been noted in cases of GI bleeding. Leukocytosis is actually fairly common in upper GI bleed and tends to reflect increased severity of the insult. Coagulase negative Staph species are frequent blood culture contaminants, and the rest of his clinical syndrome appears to be inconsistent with systemic infection. Would discontinue IV vancomycin. Srinivas Calero MD [facility] pager [phone]
[2018-07-26] MEDS: VANCOMYCIN HCL 500 MG in DEXTROSE 5%-WATER 100 ML IV SCH (16:05)
--- NOTE | 2018-07-26 16:20 | PDOC PROGRESS REPORT ---
Subjective Progress Note for:: 07/26/18 Subjective:: No adverse events overnight. No new complaints. Vital signs been stable. Hemoglobin has been stable. No reports of any bleeding. Palliative consultation is still pending. Reason For Visit: ACUTE BLODD LOSS,ANEMIA,UPPPER GI BLEEDING Physical Exam Vital Signs: Temp Pulse Resp BP Pulse Ox 98.2 F 88 18 144/65 H 100 07/26/18 12:29 07/26/18 13:30 07/26/18 13:30 07/26/18 07:56 07/26/18 13:30 Intake & Output 07/25/18 07/26/18 07/27/18 06:59 06:59 06:59 Intake Total 1359 2461 1000 Output Total 1201 1100 300 Balance 158 1361 700 Weight 84.7 kg 83.2 kg General appearance: PRESENT: no acute distress, cooperative, disheveled Mouth exam: PRESENT: dry mucosa, neck supple Teeth exam: PRESENT: poor dentation Respiratory exam: PRESENT: clear to auscultation ricardo, symmetrical, unlabored. ABSENT: accessory muscle use, crackles, prolonged expiratory phas, rhonchi, tachypnea, wheezes Cardiovascular exam: PRESENT: RRR, +S1, +S2 Pulses: PRESENT: normal carotid pulses Vascular exam: PRESENT: normal capillary refill GI/Abdominal exam: PRESENT: normal bowel sounds, soft. ABSENT: distended, guarding, rebound, tenderness Extremities exam: ABSENT: clubbing, pedal edema Musculoskeletal exam: ABSENT: ambulatory, deformity Neurological exam: ABSENT: awake Skin exam: PRESENT: dry, pallor, warm Results Laboratory Results: 07/26/18 04:47 07/26/18 14:35 07/25/18 07/26/18 07/26/18 17:50 04:47 04:47 WBC 21.3 H RBC 3.81 L Hgb 10.3 L Hct 32.4 L MCV 85 MCH 27.2 MCHC 31.9 L RDW 17.8 H Plt Count 311 Seg Neutrophils % Not Reportable Lymphocytes % Not Reportable Monocytes % Not Reportable Eosinophils % Not Reportable Basophils % Not Reportable Absolute Neutrophils Not Reportable Absolute Lymphocytes Not Reportable Absolute Monocytes Not Reportable Absolute Eosinophils Not Reportable Absolute Basophils Not Reportable Sodium 154.8 H Potassium 4.1 Chloride 129 H Carbon Dioxide 15 L Anion Gap 11 BUN 129 H Creatinine 4.77 H 5.02 H Est GFR ( Amer) 14 L 13 L Est GFR (Non-Af Amer) 12 L 11 L Glucose 216 H Calcium 8.2 L 07/26/18 14:35 WBC RBC Hgb Hct MCV MCH MCHC RDW Plt Count Seg Neutrophils % Lymphocytes % Monocytes % Eosinophils % Basophils % Absolute Neutrophils Absolute Lymphocytes Absolute Monocytes Absolute Eosinophils Absolute Basophils Sodium Potassium Chloride Carbon Dioxide Anion Gap BUN Creatinine 4.89 H Est GFR ( Amer) 14 L Est GFR (Non-Af Amer) 11 L Glucose Calcium 07/20/18 14:36 Blood Blood Culture - Final Staphylococcus Capitis 07/20/18 15:56 Blood Blood Culture - Final NO GROWTH IN 5 DAYS 07/20/18 14:36 Troponin I 0.052 Impressions: Chest X-Ray 07/20/18 14:25 IMPRESSION: Prominent interstitial markings. No acute findings. Whavaj-Q-Udbb remains in place. Assessment and Plan - Diagnosis (1) Upper GI bleed Is this a current diagnosis for this admission?: Yes Plan: Family does not want endoscopy. He is gotten some packed red blood cells. Currently on octreotide and Protonix. Will discuss with surgery as to when it is appropriate to pull him off octreotide since his blood counts are stable. (2) Blood loss anemia Is this a current diagnosis for this admission?: Yes Plan: Stable after total of 4 units of packed red blood cells, this was due to his GI bleeding (3) Gram-positive bacteremia Is this a current diagnosis for this admission?: Yes Plan: Ruled out, antibiotics stopped per infectious disease recommendations (4) Hypertension Qualifiers: Hypertension type: essential hypertension Qualified Code(s): I10 - Essential (primary) hypertension Is this a current diagnosis for this admission?: Yes Plan: Antihypertensives on hold because of lower blood pressures - Time Time Spent with patient: 15-24 minutes
[2018-07-27] MEDS: DEXTROSE 5%-NORMAL SALINE 1,000 ML IV PRN (01:15)
[2018-07-27] MEDS: OCTREOTIDE ACETATE INJ/PF 100 MCG/1 ML SDV IV SCH (05:36)
[2018-07-27] MEDS ORDERED: DEXTROSE 5%-WATER 1000 ML 1,000 ML IV PRN (09:16)
[2018-07-27 10:45] LABS: HEMATOCRIT 32.6 % (37.9-51.0); HEMOGLOBIN 10.5 g/dL (13.5-17.0); MEAN CORPUSCULAR HEMOGLOBIN 27.3 pg (27.0-33.4); MEAN CORPUSCULAR HGB CONC 32.3 g/dL (32.0-36.0); MEAN CORPUSCULAR VOLUME 85 fl (80-97); PLATELET COUNT 331 10^3/uL (150-450); RED BLOOD COUNT 3.85 10^6/uL (4.35-5.55); RED CELL DISTRIBUTION WIDTH 17.6 % (11.5-14.0); WHITE BLOOD COUNT 23.6 10^3/uL (4.0-10.5)
[2018-07-27 11:12] LABS: ANION GAP 12 (5-19); BLOOD UREA NITROGEN 114 mg/dL (7-20); CALCIUM 8.1 mg/dL (8.4-10.2); CARBON DIOXIDE 13 mmol/L (22-30); CHLORIDE 133 mmol/L (98-107); GLUCOSE 201 mg/dL (75-110); POTASSIUM 3.5 mmol/L (3.6-5.0)
[2018-07-27] MEDS: CIPROFLOXACIN HCL 0.3% OPH SOLN 2.5 ML OU SCH (11:18)
[2018-07-27 15:10] VITALS: BP 145/70
--- NOTE | 2018-07-27 16:30 | PDOC DISCHARGE SUMMARY ---
General - Admit/Disc Date/PCP Admission Date/Primary Care Provider: 07/20/18 16:59 MARLENE ARREDONDO Discharge Date: 07/27/18 - Discharge Diagnosis (1) Upper GI bleed Is this a current diagnosis for this admission?: Yes Summary: Patient was not a good candidate for endoscopy, and family did not want any such intervention. He got some packed red blood cells and was on some Protonix and octreotide drip. (2) Blood loss anemia Is this a current diagnosis for this admission?: Yes Summary: From his GI bleeding. Transfused with packed red blood cells was on Protonix drip and octreotide drip. (3) Gram-positive bacteremia Is this a current diagnosis for this admission?: Yes Summary: Ruled out. Turned out to be a contaminant. (4) Hypertension Is this a current diagnosis for this admission?: Yes Summary: Medications have been discontinued because he is on comfort measures - Additional Information Resuscitation Status: Do Not Resuscitate Discharge Diet: As Tolerated Discharge Activity: Bedrest History of Present Illness History of Present Illness: MADALYN JOYA is a 87 year old male, [facility] resident with past medical history of hypertension, hyperlipidemia, lymphoma, COPD, DVT on Eliquis, chronic renal failure, CHF and history of [facility] from [facility] with chief complaint of being pale and altered mental status. He is also noticed to have melanotic stool and his stool for occult blood is positive. The above brief history is obtained from ER attending a lot since patient is nonverbal when I saw him. On arrival patient found to be hypotensive with blood pressure of 60/40 for which she was given normal saline and later his blood pressure increased to 90/60 after a bolus of normal saline. His blood work shows leukocytosis of 14.6 and hemoglobin of 7.6, BUN of 195 creatinine of 6.53 and GFR of 8. Patient got 1 unit of packed RBC. Dr. Oswald consulted on this patient. ER attending discussed with the family member and making DNR/DNI. Hospital Course Hospital Course: Family decided they did not want any sort of procedural investigation like an endoscopy. He received blood transfusion was put on a Protonix drip as well as octreotide drip. His blood count stabilized, but his condition overall did not improve and his family ultimately elected for hospice consultation. A recommendation for inpatient hospice was made in bed was obtained. He is being transferred to inpatient hospice today. Physical Exam Vital Signs: Temp Pulse Resp BP Pulse Ox 98.5 F 103 H 18 145/70 H 98 07/27/18 09:34 07/27/18 09:34 07/27/18 09:34 07/27/18 09:34 07/27/18 09:34 Intake & Output 07/26/18 07/27/18 07/28/18 06:59 06:59 06:59 Intake Total 2461 2100 Output Total 1100 875 Balance 1361 1225 Weight 83.2 kg 82.1 kg General appearance: PRESENT: no acute distress, disheveled Mouth exam: PRESENT: dry mucosa, neck supple Teeth exam: PRESENT: poor dentation Respiratory exam: PRESENT: clear to auscultation ricardo, symmetrical, unlabored. ABSENT: accessory muscle use, crackles, prolonged expiratory phas, rhonchi, tachypnea, wheezes Cardiovascular exam: PRESENT: RRR, +S1, +S2 Pulses: PRESENT: normal carotid pulses Vascular exam: PRESENT: normal capillary refill GI/Abdominal exam: PRESENT: normal bowel sounds, soft. ABSENT: distended, guarding, rebound, tenderness Extremities exam: ABSENT: clubbing, pedal edema Musculoskeletal exam: ABSENT: ambulatory, deformity Neurological exam: ABSENT: awake Skin exam: PRESENT: dry, pallor, warm Results Laboratory Results: 07/27/18 10:30 07/27/18 10:30 07/27/18 07/27/18 10:30 10:30 WBC 23.6 H RBC 3.85 L Hgb 10.5 L Hct 32.6 L MCV 85 MCH 27.3 MCHC 32.3 RDW 17.6 H Plt Count 331 Sodium 158.0 H Potassium 3.5 L Chloride 133 H Carbon Dioxide 13 L Anion Gap 12 BUN 114 H Creatinine 4.68 H Est GFR ( Amer) 14 L Est GFR (Non-Af Amer) 12 L Glucose 201 H Calcium 8.1 L 07/20/18 15:56 Blood Blood Culture - Final NO GROWTH IN 5 DAYS 07/20/18 14:36 Blood Blood Culture - Final Staphylococcus Capitis 07/20/18 14:36 Troponin I 0.052 Impressions: Chest X-Ray 07/20/18 14:25 IMPRESSION: Prominent interstitial markings. No acute findings. Wqehjb-M-[id number] remains in place. Qualifiers - * PATIENT BEING DISCHARGED WITH ANY OF THE FOLLOWING DIAGNOSIS: No Acute Heart Failure Is this a Heart Failure Patient?: Yes Plan Time Spent: Greater than 30 Minutes
== END 2018-07-27 14:45 | disposition hospice, inpatient (51) | DRG 378 ==
LOC: ER 14:22 → EH 16:59 → ICU 19:05 → 3N 07-24 13:18 → 3W 07-24 17:37
PROVIDERS: ADMIT Internal Medicine; ATTEND Internal Medicine
PROC: 30233N0 Transfusion of Autologous Red Blood Cells into Peripheral Vein, Percutaneous Approach (ICD-10-PCS; principal; 2018-07-20)
DX: K92.1 Melena (principal); N17.9 Acute kidney failure, unspecified; I13.0 Hypertensive heart and chronic kidney disease with heart failure and stage 1 through stage 4 chronic kidney disease, or unspecified chronic kidney disease; D62 Acute posthemorrhagic anemia; I50.32 Chronic diastolic (congestive) heart failure; R78.81 Bacteremia; Z51.5 Encounter for palliative care; Z79.01 Long term (current) use of anticoagulants; Z86.718 Personal history of other venous thrombosis and embolism; H44.9 Unspecified disorder of globe; E78.5 Hyperlipidemia, unspecified; G89.29 Other chronic pain; N18.9 Chronic kidney disease, unspecified; I12.9 Hypertensive chronic kidney disease with stage 1 through stage 4 chronic kidney disease, or unspecified chronic kidney disease; I25.2 Old myocardial infarction; I50.9 Heart failure, unspecified; Z66 Do not resuscitate; Z85.72 Personal history of non-Hodgkin lymphomas; J44.9 Chronic obstructive pulmonary disease, unspecified; Z74.01 Bed confinement status
CPT/HCPCS: 36415; 36430; 71045; 80048; 80053; 80202; 81001; 82565; 82803; 82962; 83605; 84484; 85025; 85027; 85610; 86850; 86900; 86901; 86920; 87040; 87077; 87086; 87186; 93005; 93010; 94640; 99291; J1720; J2270; J2354; J2597; J3370; J3430; J3490; J7030; J7040; J7042; J7050; J7060; J7620; P9016; S0164